=== PATIENT | female | born 1965 | race Caucasian/White ===

== ENCOUNTER 2020-07-16 11:04 | Outpatient (REF) | payer OTHER, SELFPAY ==
--- NOTE | ~2020-07-16 | MM_ITS ---
EXAMINATION: MM SCREENING DIGITAL BREAST TOMOSYNTHESIS, BILATERAL CLINICAL INFORMATION: Screening. Asymptomatic. The lifetime risk of breast cancer based on the Tyrer-Cuzick Model is 5%. COMPARISON: Mammography: 03/19/2018, 01/17/2017, 12/27/2016 TECHNIQUE: Digital breast tomosynthesis is performed in both the craniocaudal and mediolateral oblique views along with computer-aided detection (CAD). Synthesized 2D images are generated from the tomosynthesis. FINDINGS: There are scattered areas of fibroglandular density (ACR BI-RADS breast composition Category b). There are no significant masses, abnormal calcifications, or other abnormalities. There is a dermal lesion overlying the 12:00 periareolar right breast. The axilla are unremarkable. No significant changes. MM/MM tomosynthesis screening BI IMPRESSION: No mammographic evidence of malignancy. ASSESSMENT: BI-RADS 2: Benign RECOMMENDATION: Routine annual mammography screening. This patient's information was entered into a reminder system with a target due date for their next mammogram.
== END 2020-07-16 11:05 | disposition home or self-care (01) ==
LOC: HO.MAMMO 11:04
PROVIDERS: Visit Provider Internal Medicine
DX: Z12.31 Encounter for screening mammogram for malignant neoplasm of breast (principal)
CPT/HCPCS: 77063; 77067

== ENCOUNTER 2021-02-14 19:20 | Outpatient (REF) | payer OTHER, SELFPAY ==
[2021-02-14 20:19] LABS: Influenza A PCR NEGATIVE (Negative); Influenza B PCR NEGATIVE (Negative); Resp Syncy Virus RNA Qual PCR NEGATIVE (Negative); SARS COV2 PCR INHOUSE NEGATIVE (Negative)
== END 2021-02-14 19:21 | disposition home or self-care (01) ==
LOC: HO.LNP 19:20
PROVIDERS: Visit Provider Hospitalist
DX: R68.89 Other general symptoms and signs (principal); Z71.1 Person with feared health complaint in whom no diagnosis is made; Z20.822 Contact with and (suspected) exposure to COVID-19
CPT/HCPCS: 0241U

== ENCOUNTER 2021-06-21 08:46 | Outpatient (RCR) | payer OTHER, SELFPAY | END 2021-06-29 14:00 | disposition home or self-care (01) | LOC: HO.PTWFD 08:46 | PROVIDERS: PCP Internal Medicine; Visit Provider Internal Medicine | DX: M54.32 Sciatica, left side (principal) ==

== ENCOUNTER 2021-07-13 09:00 | Outpatient (RCR) | payer OTHER, SELFPAY ==
--- NOTE | 2021-06-29 13:58 | MHC.PT.EP ---
[facility] [place] Office [place] Office [place] Office [address] Alvarado Chicas [address] [phone] F: [phone] F: [phone] F: [phone] F: [phone] Physical Therapy Plan of Care Date of Evaluation: Date of Surgery: NA Diagnosis: L SIDED SCIATICA Assessment: Pt IS 55 YO F REFERRED TO PT FROM DR CASTRO WITH L SIDED SCIATICA. Pt REPORTS INSIDIOUS ONSET OF L GLUT/LE SXS WHILE VACATIONING IN [facility] ABOUT 2 MONTHS AGO. PRESENTS WITH TTP L GLUT, TIGHT HS AND PIRIFORMIS MMS, PELVIC ASYMMETRY, PREFERENCE TO FLEXION AT EVAL. Pt SHOULD BENEFIT FROM PT TO ADDRESS THESE ISSUES Frequency and Duration: The patient will be seen 2X/WK X 6 WKS Short Term Goals: 1. CENTRALIZE SXS 2. IMPROVED SLEEP 3. IMPROVED STAND TIME AND WALKING DISTANCE Pelota Maker Goals: 1. IMPROVED MOD OSWESTRY 2. DECREASED PAIN AT LEAST 50% WITH ADLS 3. I HEP WITH DC EX PLAN Treatment Plan: Modalities to reduce pain, spasms and effusion. Manual therapy to restore motion and function. Therapeutic exercise to improve strength and flexibility. Neuromuscular re-education for posture and balance. Therapeutic activities to return to functional activities of daily living. Electronically signed by: YEIMI VEGA PT Please sign and return to therapist. Thank you for your referral.
--- NOTE | 2021-08-05 15:12 | MHC.PT.DC ---
[facility] [place] Office [place] Office [place] Office [address] Alvarado Chicas [address] [phone] F: [phone] F: [phone] F: [phone] F: [phone] Physical Therapy Discharge Report Diagnosis: L SIDED SCIATICA Date of Surgery: NA Date of Evaluation: 06/29/21 Date of Discharge: 08/05/21 Treatments to Date: 4 Cancellations to Date: No Shows to Date: Discharge Status: Patient Elected to Stop Recommend MD Follow-up Discharge Summary: Pt SEEN FOR INIT EVAL AND 3 FU VISITS. HAD BEGUN HOME PROG FOR LE/CORE STRENGTHENING. Pt LAST SEEN ON 07/13/21. PER ASSESSMENT FROM THAT SESSION PAIN R LB/QL WITH MOVEMENT FROM PRONE>SL, RELIEF WITH ST WORK (ALTHOUGH SLIGHTLY SORE AFTER). SX HAVE CENTRALIZED OVERALL.' Pt THEN WAS CANCELLED X 2 SESSIONS BECAUSE THERAPIST OUT. Pt THEN DISCHARGED SELF. Electronically signed by: YEIMI VEGA PT Please sign and return to therapist. Thank you for your referral.
== END 2021-08-05 15:13 | disposition home or self-care (01) ==
LOC: HO.PTWFD 09:00
PROVIDERS: PCP Internal Medicine; Visit Provider Internal Medicine
DX: M54.32 Sciatica, left side (principal)
CPT/HCPCS: 97014; 97110; 97140; 97161

== ENCOUNTER 2022-01-24 07:12 | Outpatient (REF) | payer OTHER, SELFPAY ==
[2022-01-24 11:29] LABS: MANUAL DIFF FLAG NO
[2022-01-24 12:20] LABS: Basophils Percent Auto 0.7 % (0-2); Eosinophils Absolute Auto 0.3 X10*3/uL (0.0-0.4); Eosinophils Percent Auto 4.7 % (0-4); Hematocrit 37.6 % (37.0-47.0); Hemoglobin 12.1 g/dl (12.0-16.0); Imm Gran Abs Auto 0.01 X10*3/uL (0.00-0.03); Imm Gran Pct Auto 0.2 % (0.0-0.4); Lymphocytes Absolute Auto 2.4 X10*3/uL (1.2-4.9); Lymphocytes Percent Auto 43.3 % (20-40); Mean Corpuscular HGB Conc 32.2 g/dl (31.0-35.0); Mean Corpuscular Volume 96.4 fL (80.0-98.0); Mean Platelet Volume 10.6 fL (9.4-12.3); Monocytes Absolute Auto 0.3 X10*3/uL (0.1-1.2); Monocytes Percent Auto 6.1 % (2-11); Neutrophils Absolute Auto 2.5 x10*3/uL (2.0-8.3); Platelet Count 225 X10*3/uL (160-400); Red Cell Distribution Width 12.7 % (11.0-16.0); White Blood Count 5.6 X10*3/uL (4.8-10.8)
[2022-01-24 12:25] LABS: Anion Gap 11 (12-20); Blood Urea Nitrogen 20 mg/dL (9-16); Calcium 9.8 mg/dL (8.4-10.2); Carbon Dioxide 23 mmol/L (22-29); Chloride 112 mmol/L (96-108); Estimated Glomerular Filt Rate 43; Glucose Random 110 mg/dL (60-115); Potassium 4.4 mmol/L (3.3-5.1); Sodium 142 mmol/L (135-145)
== END 2022-01-24 07:13 | disposition home or self-care (01) ==
LOC: HO.WFDLDS 07:12
PROVIDERS: Absent Provider Internal Medicine Nephrology; Visit Provider Internal Medicine
DX: Z13.0 Encounter for screening for diseases of the blood and blood-forming organs and certain disorders involving the immune mechanism (principal); R51.9 Headache, unspecified
CPT/HCPCS: 36415; 80048; 85025

== ENCOUNTER → 2022-01-26 08:51 | Outpatient (BNVA) | payer OTHER, SELFPAY | PROVIDERS: PCP Internal Medicine; Visit Provider Nurse Practitioner Family | DX: G62.9 Polyneuropathy, unspecified (principal); M79.671 Pain in right foot; M79.672 Pain in left foot; G89.29 Other chronic pain; Q61.3 Polycystic kidney, unspecified; M47.816 Spondylosis without myelopathy or radiculopathy, lumbar region; Z94.0 Kidney transplant status; Z87.718 Personal history of other specified (corrected) congenital malformations of genitourinary system; Z92.25 Personal history of immunosuppression therapy | CPT/HCPCS: 99202 ==

== ENCOUNTER 2022-02-21 07:51 | Outpatient (REF) | payer OTHER, SELFPAY ==
--- NOTE | ~2022-02-21 | CT_ITS ---
EXAMINATION: CT HEAD WITHOUT CONTRAST CLINICAL INFORMATION: Headache. COMPARISON: MRI scan of the brain 02/26/2012. TECHNIQUE: Multidetector CT imaging of the head was obtained without the use of intravenous contrast. Coronal and sagittal reformatted images were generated at the technologist workstation. This CT examination was performed using dose optimization techniques as appropriate, variously including the following: *Automated exposure control *Adjustment of mA and/or kV according to patient size (this includes techniques or standardized protocols for targeted exams where dose is matched to indication/reason for exam; i.e. extremities or head) *Use of iterative reconstruction technique DLP: 706 mGy-cm. FINDINGS: There is no evidence of acute intracranial hemorrhage or territorial infarction. No abnormal mass-effect or midline shift is seen. James to white matter differentiation is well preserved. No extra-axial fluid collections are identified. The ventricles and sulci are normal in size. There are scattered areas of low-attenuation in the periventricular and subcortical white matter, and in the basal ganglia bilaterally. These may be consistent with chronic microvascular ischemic changes with basal ganglia lacunar infarcts. There are no acute osseous or soft tissue abnormalities. There is slight irregularity of the lateral aspect of the right temporomandibular condylar head. There is a chronic deformity of the lamina papyracea on the left. This is unchanged compared to prior imaging. There is hyperostosis frontalis interna. There is likely a hemangioma in the right frontal bone. The mastoid air cells and visualized paranasal sinuses are well aerated.. CT/CT head/brain wo IV con IMPRESSION: 1. There are no acute bleeds or infarcts. No masses are demonstrated. 2. There are scattered areas of low-attenuation in the parenchyma as described above. 3. There is irregularity of the left lamina papyracea, which may be consistent with sequelae of prior trauma.
== END 2022-02-21 07:52 | disposition home or self-care (01) ==
LOC: HO.CT 07:51
PROVIDERS: PCP Internal Medicine; Visit Provider Internal Medicine
DX: R51.9 Headache, unspecified (principal)
CPT/HCPCS: 70450

== ENCOUNTER → 2022-03-03 10:19 | Outpatient (BNVA) | payer OTHER, SELFPAY | PROVIDERS: PCP Internal Medicine; Visit Provider Nurse Practitioner Family | DX: G89.29 Other chronic pain (principal); M79.671 Pain in right foot; M79.672 Pain in left foot; M47.816 Spondylosis without myelopathy or radiculopathy, lumbar region; G62.9 Polyneuropathy, unspecified | CPT/HCPCS: 99212 ==

== ENCOUNTER 2022-05-10 11:47 | Outpatient (REF) | payer OTHER, SELFPAY ==
--- NOTE | 2022-05-10 08:30 | EMG_ITS ---
Please see scanned EMG / Nerve Conduction Report. MTDD
== END 2022-05-10 11:48 | disposition home or self-care (01) ==
LOC: HO.NEURO 11:47
PROVIDERS: Visit Provider Nurse Practitioner Family
DX: M79.671 Pain in right foot (principal); M79.672 Pain in left foot; G89.29 Other chronic pain; G62.9 Polyneuropathy, unspecified; Z92.25 Personal history of immunosuppression therapy
CPT/HCPCS: 95886; 95912

== ENCOUNTER → 2022-05-22 14:47 | Outpatient (BNVA) | payer OTHER, SELFPAY | PROVIDERS: PCP Internal Medicine; Visit Provider Nurse Practitioner Family ==

== ENCOUNTER 2022-05-23 09:30 | Outpatient (REF) | payer OTHER, SELFPAY ==
--- NOTE | ~2022-05-23 | XR_ITS ---
EXAMINATION: XR LUMBOSACRAL SPINE WITH OBLIQUES CLINICAL INFORMATION: Spondylosis without myelopathy COMPARISON: Previous x-ray May 2016 and MR of the lumbar spine January 2011 TECHNIQUE: AP, bilateral oblique, lateral and flexion and extension views of the lumbar spine. Lateral view of the lumbosacral junction. FINDINGS: There is 6 mm anterior subluxation of L5 with respect to S1. This is stable flexion-extension views. This is new from prior exams. Bone alignment is otherwise normal. There is an old L1 vertebral body compression fracture. There is degenerative disc disease at L5-S1. There is lower lumbar spine facet arthritis. No par defects seen. XR/XR lumbar spine 6V w bending IMPRESSION: Old L1 compression fracture. 6 mm anterior subluxation of L5 with respect to S1 stable on flexion-extension views. Degenerative disc disease at L5-S1 and severe facet arthritis.
== END 2022-05-23 09:31 | disposition home or self-care (01) ==
LOC: HO.XRAY 09:30
PROVIDERS: Absent Provider Internal Medicine; PCP Internal Medicine; Visit Provider Nurse Practitioner Family
DX: M47.816 Spondylosis without myelopathy or radiculopathy, lumbar region (principal); G62.9 Polyneuropathy, unspecified
CPT/HCPCS: 72114

== ENCOUNTER → 2022-07-04 14:01 | Outpatient (BNVA) | payer OTHER, SELFPAY | PROVIDERS: PCP Internal Medicine; Visit Provider Nurse Practitioner Family | DX: G89.4 Chronic pain syndrome (principal); G62.9 Polyneuropathy, unspecified | CPT/HCPCS: 17999; 99212; J7336 ==

== ENCOUNTER 2022-09-26 13:51 | Outpatient (AMB) | payer OTHER, SELFPAY ==
--- NOTE | 2022-09-26 15:58 | A.OFFVIS_ITS ---
Intake Vital Signs 09/26/22 16:02 Height 5 ft 7 in Weight 170 lb 6 oz BMI 26.7 BP 140/86 H Blood Pressure Location Lt brachial Position Sitting Respiration 16 Pulse 86 Pulse Source Pulse Oximeter Pulse Oximetry (%) 97 Oxygen Delivery Method Room Air Intake Visit Reasons: SCIATICA PAIN Allergies soy [SOY] Allergy (Intermediate, Verified 07/04/22 14:16) FLUSHING,ITCHY lisinopril Allergy (Unknown, Verified 07/04/22 14:16) Cough buspirone Adverse Reaction (Intermediate, Verified 07/04/22 14:16) psychosis HPI HPI Comments History of Present Illness Details Veronica is a very pleasant 57 year old female who presents to the office today for follow up left lower back pain. Patient reports she has been suffering with this pain for many years, completed PT last year with improvement of the pain but it has since returned. She has been doing home exercise program as instructed on discharge from PT with no relief. She is s/p kidney transplant, unable to take PO NSAIDs but has tried topical voltaren cream with some help. She used opiates and muscle relaxers in the past with some relief. Using heat and lidocaine patches, both help some but not all the time. Tried gabapentin recently but could not tolerate the side effects. Pain today 08/21 with radiation down the left leg into the left foot. She denies red flag symptoms including loss of bowel, bladder or saddle anesthesia. PRIOR: Patient presents today via telehealth encounter to discuss EMG and nerve conduction studies. Patient continues to endorse bilateral neuropathy pain in her legs and feet and axial low back pain. Neurodiagnostic studies revealed moderately severe axonal sensory greater than motor peripheral neuropathy in the lower extremities bilaterally with relative sparing of the tibial and sural nerves. EMG of the right L4-S1 innervated muscles consistent with distal chronic neuropathic changes of neuropathy. Patient is interested to proceed with SCS trial. I will submit referral for behavioral assessment to [facility] providers. Patient denies any recent cough, cold, infection, fever or other significant changes in medical history since last office visit. PRIOR: Patient presents today in the office for medication review. Patient has tried gabapentin and had to discontinue due to memory issues and fuzzy head sensations. Topical compound cream from [employer] was not approved by her insurance. Patient is scheduled to undergo EMG and NVC studies in April. If neurodiagnostic studies show axonal neuropathy, we will discuss longer term pain relief with Nevro SCS trial and proceed with behavioral assessment as initial step for SCS trial. Patient reports she recently underwent head CT scan for headaches and it showed no acute findings. Patient denies any changes in her medical or surgical history and no recent hospitalizations or Urgent clinic visits since last visit. 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 She attributes chronic neuropathy to renal failure. Patient denies diabetes with most recent A1C 5.3. Patient reports her back pain is currently axial that spreads across her back without radiation to her lower extremities. Her main concern today is bilateral foot neuropathic pain. She has been under the care of a neurologist in the past and had EMG testing done many years ago. Patient has no reports of EMG testing today. She reports her gait and balance has been affected lately with occasional falling. Her pain is described as constant throbbing, pounding, shooting, stabbing, sharp, cutting, pinching, searing, burning, numbness, crawling, tingling, stinging, sore, hurting, aching, heavy, tiring, exhausting, sickening, piercing, tight, squeezing, and cold. Patient reports she completed physical therapy 4 months ago with improvement in her sciatica symptoms. Denies back surgery or injections. She underwent a left bunionectomy by Dr. Landa at [facility] in 2018. Patient reports she has tried gabapentin and Lyrica in the past that has been not effective. She has not tried amitriptyline or duloxetine in the past and currently these medications will significantly interfere with her taking bupropion. Patient has been on pain medical management by Dr. Andre for the past 20 years and has been tapered off oxycodone 4 months ago. She emphasized that oxycodone has been the most effective for her chronic foot neuropathy. I have informed patient that our office does not offer opioid prescribing at this time. Patient denies any fever, chills, weight changes, abdominal or groin pain, dizziness, shortness of breaths, weakness, infection, swelling, rash, bowel or bladder incontinence or saddle anesthesia. [facility] Medical History Eczema Neuropathy Peripheral neuropathy Polycystic kidney disease Surgical History History of D&C History of kidney transplant History of nephrectomy History of surgery on arm History of tubal ligation Kidney transplant recipient Family History Father Polycystic kidney disease Mother No problems noted. Paternal Grandmother Polycystic kidney disease Social History Housing: House Alcohol intake: never Patient Tobacco Use Status: Never used Tobacco e-Cigarette/Vaping Use: Never Used Second Hand Smoke Exposure: No service: No Current occupational status: disabled Current occupational exposures/hazards: No Cognitive needs: No Hearing needs: No Vision needs: Yes Review of Systems Const All systems reviewed & are unremarkable except as noted in HPI and below Physical Exam General: awake, alert, oriented. Answers questions appropriately. Fully engaged in examination. Skin: warm, dry, intact HEENT: Normocephalic. Hearing intact. Cardiac: External chest normal in appearance. Respiratory: No cough, audible wheezing or stridor. Abdomen: without gross distension. MS: No obvious swelling or deformities. Able to stand on bilateral tiptoes and bilateral heels.? Able to transition from sit to stand unassisted. Ambulates with bilaterally normal heel strike and toe off Tenderness to palpation left paraspinal muscles and left PSIS Nargis postive on left SLR with dorsiflexion positive on left gaenslen negative bilaterally thigh thrust negative bilaterally Neurological: Oriented to person, place, time and situation. Thought process intact. No gait abnormalities appreciated. Psychiatric: Appropriate mood and affect. Good judgment and insight. Results Reviewed Results Reviewed: XR LUMBOSACRAL SPINE WITH OBLIQUES FINDINGS: There is 6 mm anterior subluxation of L5 with respect to S1. This is stable flexion-extension views. This is new from prior exams. Bone alignment is otherwise normal. There is an old L1 vertebral body compression fracture. There is degenerative disc disease at L5-S1. There is lower lumbar spine facet arthritis. No par defects seen. IMPRESSION: Old L1 compression fracture. 6 mm anterior subluxation of L5 with respect to S1 stable on flexion-extension views. Degenerative disc disease at L5-S1 and severe facet arthritis. 05/10/2022 Assessment & Plan Assessment & Plan (1) Peripheral neuropathy: Code(s): G62.9 - Polyneuropathy, unspecified (2) Chronic pain of both feet: Code(s): M79.671 - Pain in right foot; M79.672 - Pain in left foot; G89.29 - Other ch ronic pain (3) Lumbar spondylosis: Code(s): M47.816 - Spondylosis without myelopathy or radiculopathy, lumbar region (4) Lumbar radiculopathy: Code(s): M54.16 - Radiculopathy, lumbar region Plan 1. Refill of lidocaine patches sent to pharmacy. patient instructed on use. Topical compound cream denied by insurance recently, she does not want to try getting this approved. Given patient's history of kidney transplant muscle relaxers contraindicated. 2. Zynex Tens machine ordered, patient instructed on use. Handout provided with instructions. 3. MRI non-contrast Lumbar spine ordered today to evaluate for nerve root compression. Discussed options for treatment including diagnostic interventional testing, epidural steroid injections, peripheral nerve stimulation with Sprint, RFA and more permanent neuromodulation. SCS denied by insurance for peripheral neuropathy, she has up to date psych clearance if necessary for future procedures. Patient will follow up here after MRI to review, plan for fluoroscopy guided TFESI with local anesthetic vs neurosurgical referral. All questions and concerns have been answered and patient agrees with the plan. Follow up as planned 10/03/2022 for next [employer] application. Orders: Orders MR lumbar spine wo con Today M47.816 - Spondylosis without myelopathy or radiculopathy, lumbar region, M54.16 - Radiculopathy, lumbar region Medications: Refilled lidocaine 5% leave on most painful area for up to 12 hrs 1 patch topical DAILY PRN 30 ea 3RF pain M54.9 - Dorsalgia, unspecified Coding Level of Care Code Est Pt Level 4 (92545) Diagnoses Peripheral neuropathy G62.9 Chronic pain of both feet M79.671; M79.672; G89.29 Lumbar spondylosis M47.816 Lumbar radiculopathy M54.16
[2022-09-26 16:02] VITALS: BP 140/86; PULSE 86; RESP 16; O2SAT 97; BMI 26.7
== END 2022-09-26 14:16 | disposition home or self-care (01) ==
PROVIDERS: PCP Internal Medicine; Visit Provider Registered Nurse Emergency
DX: G62.9 Polyneuropathy, unspecified (principal); M79.671 Pain in right foot; M79.672 Pain in left foot; G89.29 Other chronic pain; M47.816 Spondylosis without myelopathy or radiculopathy, lumbar region; M54.16 Radiculopathy, lumbar region
CPT/HCPCS: 99214

== ENCOUNTER → 2022-09-26 13:51 | Outpatient (BNVA) | payer OTHER, SELFPAY | PROVIDERS: PCP Internal Medicine; Visit Provider Registered Nurse Emergency | DX: G62.9 Polyneuropathy, unspecified (principal); G89.29 Other chronic pain; M79.671 Pain in right foot; M79.672 Pain in left foot; M47.26 Other spondylosis with radiculopathy, lumbar region | CPT/HCPCS: 99212 ==

== ENCOUNTER 2022-09-27 14:09 | Outpatient (AMB) | payer OTHER, SELFPAY ==
--- NOTE | 2022-09-27 14:12 | MHC.PC.OV ---
Vital Signs 09/27/22 14:13 Height 5 ft 7 in Weight 171 lb 4 oz BMI 26.8 BP 130/72 Blood Pressure Location Lt brachial Position Sitting Pulse 81 Pulse Source Pulse Oximeter Pulse Oximetry (%) 97 Oxygen Delivery Method Room Air Intake Visit Reasons: feeling tried and sad ? antidepressant med Intake Note: Patient is here today for depression and anti depressant are not helping. Currently does not have a psy Dr. Solar Photovoltaic Installer Required: No Fish Hatchery Inspector: Not Required per policy Accompanied by: Self / Same As Patient Allergies soy [SOY] Allergy (Intermediate, Verified 09/27/22 14:13) FLUSHING,ITCHY lisinopril Allergy (Unknown, Verified 09/27/22 14:13) Cough buspirone Adverse Reaction (Intermediate, Verified 09/27/22 14:13) psychosis Medication List - Last Reconciled 09/28/22 by Ernst Andre MD belatacept 375 mg IV Q4W betamethasone valerate 0.1% 1 appl topical DAILY PRN 14 days bupropion HCl 300 mg PO DAILY bupropion HCl 150 mg PO DAILY clonazepam 1 mg PO BID diclofenac sodium 1% (Voltaren Arthritis Pain) 4 grams topical QID PRN fluticasone propionate 50 mcg/actuation 1 spray intranasal DAILY lidocaine 5% 1 patch topical DAILY PRN lidocaine-prilocaine 2.5-2.5 % 1 appl topical DAILY loratadine (Allergy Relief (loratadine)) 10 mg PO DAILY PRN multivitamin 1 tab PO DAILY mycophenolate sodium 540 mg PO BID omeprazole 20 mg PO DAILY paroxetine HCl (Paxil) 20 mg PO DAILY rosuvastatin 5 mg PO DAILY Tobacco use date assessed: 09/27/22 HPI feeling tried and sad ? antidepressant med HPI Details depression with tearful episodes PFSH Medical History Eczema Neuropathy Peripheral neuropathy Polycystic kidney disease Surgical History History of D&C History of kidney transplant History of nephrectomy History of surgery on arm History of tubal ligation Kidney transplant recipient Family History Father Polycystic kidney disease Mother No problems noted. Paternal Grandmother Polycystic kidney disease Social History Housing: House Alcohol intake: never Patient Tobacco Use Status: Never used Tobacco e-Cigarette/Vaping Use: Never Used Second Hand Smoke Exposure: No service: No Current occupational status: disabled Current occupational exposures/hazards: No Cognitive needs: No Hearing needs: No Vision needs: Yes Questionnaire PHQ-9 Over the last 2 weeks, how often have you been bothered by any of the following problems? 1. Little interest or pleasure in doing things: several days 2. Feeling down, depressed, or hopeless: nearly every day 3. Trouble falling or staying asleep, or sleeping too much: nearly every day 4. Feeling tired or having little energy: nearly every day 5. Poor appetite or overeating: nearly every day 6. Feeling bad about yourself - or that you are a failure or have let yourself or your family down: not at all 7. Trouble concentrating on things, such as reading the newspaper or watching television: not at all 8. Moving or speaking so slowly that other people could have noticed. Or the opposite - being so fidgety or restless that you have been moving around a lot more than usual: not at all 9. Thoughts that you would be better off or of hurting yourself in some way: not at all Total score: 13 Depression Screening Interpretation: Negative Source: Developed by Drs. Tariq Rivera, Asuncion Leach, Adam Morse and colleagues, with an educational joaquín from [employer]. Thrive Questionnaire Date Thrive assessed: 06/14/22 Currently or been in a relationship where the following occur: no concerns reported ANDREIA-7 AMB Questionnaire ANDREIA-7 Date ANDREIA - 7 assessed: 09/27/22 Feeling nervous, anxious, or on edge: 3 = Nearly every day Not being able to stop or control worryin = Nearly every day Worrying too much about different things: 3 = Nearly every day Trouble relaxin = Several days Being so restless that it is hard to sit still: 0 = Not at all Becoming easily annoyed or irritable: 0 = Not at all Feeling afraid as if something awful might happen: 1 = Several days Total ANDREIA-7 score (0-4 normal; 5-9 mild; 10-14 moderate; 15-21 severe): 11 Source: Developed by Drs. Tariq Rivera, Asuncion Leach, Adam Morse and colleagues, with an educational joaquín from [employer]. Review of Systems Const Denies chills, Denies headache(s) and Denies weight loss ENT Denies headache(s) Card Denies chest pain, Denies syncope, Denies irregular heart rhythm and Denies dyspnea Resp Denies chest congestion, Denies cough and Denies dyspnea GI Denies abdominal pain, Denies change in stool character, Denies nausea and Denies vomiting Musc Denies deformity and Denies joint swelling Neuro Denies syncope and Denies headache(s) Physical exam (Primary Care) Vital Signs: Last Vital Signs Pulse 81 09/27/22 14:13 BP 130/72 09/27/22 14:13 Pulse Ox 97 09/27/22 14:13 Oxygen Delivery Method Room Air 09/27/22 14:13 BMI result Body Mass Index 26.8 Tobacco/Smoking Status: Tobacco use Status Tobacco use date assessed 09/27/22 09/27/22 14:21 Patient Tobacco Use Status Never used Tobacco 09/27/22 14:21 e-Cigarette/Vaping Use Never Used 09/27/22 14:21 PHQ-9: PHQ-9 Score PHQ-9: Total score 13 09/27/22 14:21 Depression Screening Interpretation: Negative Thrive Assessment: Date of Thrive Assessment Date Thrive assessed 06/14/22 09/27/22 14:21 Currently or been in a relationship where the following occur: no concerns reported Const General: cooperative, healthy appearing and no acute distress Orientation/consciousness: oriented to person, oriented to place and oriented to time [facility] Head: Yes normal to inspection, Yes normocephalic and Yes atraumatic Mouth: Normal oral and palatal mucosa present and tongue normal Throat: Yes posterior oropharynx normal and Yes uvula midline Eyes General: appearance normal, both eyes and all related structures Neck Neck: Yes normal visual inspection, Yes full ROM and Yes no lymphadenopathy Thyroid: Thyroid normal Carotids: normal carotid upstroke Chest Chest palpation & inspection: normal inspection of the chest Resp Effort & Inspection: normal respiratory effort and able to speak in complete sentences Auscultation: clear to auscultation bilaterally Cardio Jugular venous distension: no JVD Palpation: normal PMI Rate: regular rate Rhythm: regular rhythm Heart sounds: S1 normal heart sound present and S2 normal heart sound present GI Inspection: Yes normal to inspection Palpation (GI): Soft to palpation and No hepatosplenomegaly present Auscultation: normal bowel sounds General: Yes no CVA tenderness Back/Spine/Pelvis Back: no CVA tenderness Skin General skin exam: no rashes or lesions noted Neuro General: oriented to person, oriented to place and oriented to time Extrem General: Yes normal to inspection and Yes full ROM Assessment and Plan Assessment & Plan (1) Depression: Code(s): F32.9 - Major depressive disorder, single episode, unspecified Plan: add rx Medications: New paroxetine HCl (Paxil) 20 mg PO DAILY 30 tabs 3RF Coding Level of Care Code Est Pt Level 3 (94738) Diagnoses Depression F32.9
[2022-09-27 14:13] VITALS: BP 130/72; PULSE 81; O2SAT 97; BMI 26.8
== END 2022-09-27 15:41 | disposition home or self-care (01) ==
PROVIDERS: PCP Internal Medicine; Visit Provider Internal Medicine
DX: F33.9 Major depressive disorder, recurrent, unspecified (principal)
CPT/HCPCS: 99213

== ENCOUNTER 2022-10-03 08:46 | Outpatient (AMB) | payer OTHER, SELFPAY ==
--- NOTE | 2022-10-03 08:51 | A.OFFVIS_ITS ---
Intake Vital Signs 10/03/22 08:56 10/03/22 09:31 10/03/22 09:50 Height 5 ft 7 in Weight 168 lb 4 oz BMI 26.3 BP 145/75 H 141/85 H 146/79 H Blood Pressure Location Lt brachial Lt brachial Lt brachial Position Sitting Sitting Sitting Pulse 81 79 78 Pulse Source Pulse Oximeter Pulse Oximeter Pulse Oximeter Pulse Oximetry (%) 97 98 96 Oxygen Delivery Method Room Air Room Air Room Air Comment 15 mins after qutenza application Intake Visit Reasons: Qutenza - PN Intake Note: Veronica comes in today for qutenza application to bilateral feet. Lot# [id number] Exp , [facility]# [id number]. Pain today 05/22. 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 She continues to endorse low back pain with left sided sciatica pain and is awaiting lumbar spine MRI to be scheduled. Patient reports she just received TENS unit from [employer] and will monitor its use and effectiveness. She also continues to use lidocaine patches, heat therapy and diclofenac gel with temporary mild relief. Denies any recent cough, cold, infection, fever or other significant changes in medical history since last office visit. PRIOR: Veronica is a very pleasant 57 year old female who presents to the office today for follow up left lower back pain. Patient reports she has been suffering with this pain for many years, completed PT last year with improvement of the pain but it has since returned. She has been doing home exercise program as instructed on discharge from PT with no relief. She is s/p kidney transplant, unable to take PO NSAIDs but has tried topical voltaren cream with some help. She used opiates and muscle relaxers in the past with some relief. Using heat and lidocaine patches, both help some but not all the time. Tried gabapentin recently but could not tolerate the side effects. Pain today 08/21 with radiation down the left leg into the left foot. She denies red flag symptoms including loss of bowel, bladder or saddle anesthesia. PRIOR: Patient presents today via telehealth encounter to discuss EMG and nerve conduction studies. Patient continues to endorse bilateral neuropathy pain in her legs and feet and axial low back pain. Neurodiagnostic studies revealed moderately severe axonal sensory greater than motor peripheral neuropathy in the lower extremities bilaterally with relative sparing of the tibial and sural nerves. EMG of the right L4-S1 innervated muscles consistent with distal chronic neuropathic changes of neuropathy. Patient is interested to proceed with SCS trial. I will submit referral for behavioral assessment to [facility] providers. Patient denies any recent cough, cold, infection, fever or other significant changes in medical history since last office visit. PRIOR: Patient presents today in the office for medication review. Patient has tried gabapentin and had to discontinue due to memory issues and fuzzy head sensations. Topical compound cream from [employer] was not approved by her insurance. Patient is scheduled to undergo EMG and NVC studies in April. If neurodiagnostic studies show axonal neuropathy, we will discuss longer term pain relief with [facility] SCS trial and proceed with behavioral assessment as initial step for SCS trial. Patient reports she recently underwent head CT scan for headaches and it showed no acute findings. Patient denies any changes in her medical or surgical history and no recent hospitalizations or Urgent clinic visits since last visit. 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 She attributes chronic neuropathy to renal failure. Patient denies diabetes with most recent A1C 5.3. Patient reports her back pain is currently axial that spreads across her back without radiation to her lower extremities. Her main concern today is bilateral foot neuropathic pain. She has been under the care of a neurologist in the past and had EMG testing done many years ago. Patient has no reports of EMG testing today. She reports her gait and balance has been affected lately with occasional falling. Her pain is described as constant throbbing, pounding, shooting, stabbing, sharp, cutting, pinching, searing, burning, numbness, crawling, tingling, stinging, sore, hurting, aching, heavy, tiring, exhausting, sickening, piercing, tight, squeezing, and cold. Patient reports she completed physical therapy 4 months ago with improvement in her sciatica symptoms. Denies back surgery or injections. She underwent a left bunionectomy by Dr. Landa at [facility] in 2018. Patient reports she has tried gabapentin and Lyrica in the past that has been not effective. She has not tried amitriptyline or duloxetine in the past and currently these medications will significantly interfere with her taking bupropion. Patient has been on pain medical management by Dr. Andre for the past 20 years and has been tapered off oxycodone 4 months ago. She emphasized that oxycodone has been the most effective for her chronic foot neuropathy. I have informed patient that our office does not offer opioid prescribing at this time. Patient denies any fever, chills, weight changes, abdominal or groin pain, dizziness, shortness of breaths, weakness, infection, swelling, rash, bowel or bladder incontinence or saddle anesthesia. [facility] Medical History Eczema Neuropathy Peripheral neuropathy Polycystic kidney disease Surgical History History of D&C History of kidney transplant History of nephrectomy History of surgery on arm History of tubal ligation Kidney transplant recipient Family History Father Polycystic kidney disease Mother No problems noted. Paternal Grandmother Polycystic kidney disease Social History Housing: House Alcohol intake: never Patient Tobacco Use Status: Never used Tobacco e-Cigarette/Vaping Use: Never Used Second Hand Smoke Exposure: No service: No Current occupational status: disabled Current occupational exposures/hazards: No Cognitive needs: No Hearing needs: No Vision needs: Yes Review of Systems Const All systems reviewed & are unremarkable except as noted in HPI and below Physical Exam Vital Signs: Last Vital Signs Pulse 79 10/03/22 09:31 BP 141/85 H 10/03/22 09:31 Pulse Ox 98 10/03/22 09:31 Oxygen Delivery Method Room Air 10/03/22 09:31 BMI result Body Mass Index 26.3 General: Appears afebrile. Alert and oriented. Mood and affect appropriate. Follows and participates in conversation appropriately. Respiratory effort is unlabored. No cough. Able to transition from sit to stand unassisted. Ambulates with bilaterally normal heel strike and toe off but reports increased pain on left with heel or toe standing. Back/Spine/Pelvis Thoracic/Lumbar Spine: Lasegue's sign positive on the left and localized, pain with thoraco-lumbar ROM, paraspinal muscle tenderness on the left greater than right, No thoracic spinal tenderness and lumbar spinal tenderness (L4-S1) Extrem Other: No soft tissue swelling, redness or warmth. There is decreased sensation over the soles of the feet and toes, no breaks in the skin. General: Yes capillary refill normal, Yes no clubbing, cyanosis or edema and Yes no calf tenderness Office Procedures Topical Capsaicin Date 1:: 07/04/22 Date 2:: 10/03/22 Main area of pain on the body: Bilateral feet: toes, plantar and dorsal surfaces Laterality: Bilateral Location of left foot pain: Plantar, Dorsal and Lateral Location of right foot pain: Plantar, Dorsal and Lateral Quality of pain: Aching, Nagging, Burning, Throbbing and Numb-like Details:: Two patches, 560 cm2 were utilized per each foot. EMLA Cream (lidocaine 2.5% and prilocaine 2.5%) was applied at home by patient prior to application of the patches. The patient tolerated the procedure well. Her vitals signs remained stable throughout the procedure. Patient was able to complete the stipulated 30 minutes of the therapeutic application without any discomfort. Office Meds capsaicin-skin cleanser 8 % Performing Provider: NATE Junior Administered by: NATE Junior on 10/03/22 09:10 Dose Route Admin Location Lot Number Expiration Date NDC Pickle Pumper 4 ea topical [facility] [id number] 02/12/25 [id number] [employer] Assessment & Plan Assessment & Plan (1) Peripheral neuropathy: Code(s): G62.9 - Polyneuropathy, unspecified (2) Chronic pain syndrome: Code(s): G89.4 - Chronic pain syndrome (3) Lumbar radiculopathy: Code(s): M54.16 - Radiculopathy, lumbar region (4) Lumbar spondylosis: Code(s): M47.816 - Spondylosis without myelopathy or radiculopathy, lumbar region (5) Chronic pain of both feet: Code(s): M79.671 - Pain in right foot; M79.672 - Pain in left foot; G89.29 - Other chronic pain Plan Patient is status post 2nd round of application of topical capsaicin 8% for neuropathy in bilateral feet. Patient tolerated the procedure without significant discomfort with application of EMLA cream prior to the procedure. She was discharged home in stable condition with discharge instructions. All questions and concerns were answered and the patient agreed with the plan. Patient is aware to call if her low back pain with left sided radicular pain worsens or if she develops any red flag symptoms to seek emergency care. Patient denies any cauda equina syndrome symptoms at this time. Follow up for MRI results and sooner as needed. Greater than 45 minutes were spent in therapeutic application and in coordination of the care. Orders: Orders AMB Capsaicin Patch - Practice Supplied Today G62.9 - Polyneuropathy, unspecified Coding Level of Care Code Est Pt Level 5 (11702) Diagnoses Peripheral neuropathy G62.9 Chronic pain syndrome G89.4 Lumbar radiculopathy M54.16 Lumbar spondylosis M47.816 Chronic pain of both feet M79.671; M79.672; G89.29
[2022-10-03 08:56] VITALS: BP 145/75; PULSE 81; O2SAT 97; BMI 26.3
[2022-10-03 09:31] VITALS: BP 141/85; PULSE 79; O2SAT 98
[2022-10-03 09:50] VITALS: BP 146/79; PULSE 78; O2SAT 96
== END 2022-10-03 10:04 | disposition home or self-care (01) ==
PROVIDERS: PCP Internal Medicine; Visit Provider Nurse Practitioner Family
DX: G62.9 Polyneuropathy, unspecified (principal); G89.4 Chronic pain syndrome; M54.16 Radiculopathy, lumbar region; M47.816 Spondylosis without myelopathy or radiculopathy, lumbar region; M79.671 Pain in right foot; M79.672 Pain in left foot; G89.29 Other chronic pain
CPT/HCPCS: 99215

== ENCOUNTER → 2022-10-03 08:46 | Outpatient (BNVA) | payer OTHER, SELFPAY | PROVIDERS: PCP Internal Medicine; Visit Provider Nurse Practitioner Family | DX: G62.9 Polyneuropathy, unspecified (principal); M54.16 Radiculopathy, lumbar region; M47.816 Spondylosis without myelopathy or radiculopathy, lumbar region; M79.671 Pain in right foot; M79.672 Pain in left foot; G89.29 Other chronic pain | CPT/HCPCS: 99212; J7336 ==

== ENCOUNTER 2022-11-01 08:36 | Outpatient (REF) | payer OTHER, SELFPAY ==
--- NOTE | ~2022-11-01 | MR_ITS ---
EXAMINATION: MR LUMBAR SPINE WITHOUT CONTRAST CLINICAL INFORMATION: Radiculopathy. Low back pain. COMPARISON: MRI dated 01/20/2011 and x-ray from 05/23/2022. TECHNIQUE: Multiplanar, multisequence imaging was obtained. FINDINGS: VERTEBRAL BODIES AND PARASPINAL STRUCTURES: There is a chronic mild superior endplate compression fracture deformity again visible at the L1 level. Mild scattered fatty marrow signal changes are stable. There is very mild anterior/superior endplate edema at the T12 level with osteophytic spurring. Multilevel endplate Schmorl's nodes visible. Moderate loss of disc height evident at the L5-S1 level where there is a grade 1 anterolisthesis and a 7 mm slippage. There is [id number]-[id number] endplate edema at L5-S1 and in the posterior elements on the right side, presumably stress-related. The paraspinal soft tissues are otherwise unremarkable. Right-sided pelvic kidney noted. The imaged bony pelvis is unremarkable. There is an incompletely visualized 3.6 cm lesion which may represent a cyst versus hemangioma at the hepatic dome on the nondiagnostic localizer acquisition. CONUS MEDULLARIS AND CAUDA EQUINE: The distal cord, conus tip, and cauda equina nerve roots are normal. SPINAL LEVELS: L1-L2: Tiny central disc protrusion. No central canal stenosis or foraminal narrowing. L2-L3: Mild disc degeneration and disc bulge without central canal stenosis or foraminal narrowing. Previous small posterior annular fissure is no longer seen. Very mild retrosubluxation. L3-L4: Mild superior endplate concavity lateralized to the right side with fatty marrow endplate changes at L3, new from the prior MR study. Minimal disc bulge and posterior annular fissure. No central canal stenosis or foraminal narrowing. L4-L5: Mild posterior subluxation and new broad-based disc bulge mildly impressing upon the ventral thecal sac with mild facet arthropathy. No central canal stenosis. Mild foraminal narrowing. L5-S1: Anterolisthesis and moderate loss of disc height with progressed severe facet arthropathy compared to prior imaging. Mild marrow edema in the posterior elements on the right side. Maxl-kb-[id number] endplate edema as well. Aijh-fb-ojwddhht foraminal narrowing, worse on the left side, with facet spurring and bulging disc compressing the exiting left L5 nerve root. Moderate central canal stenosis with facet spurring mildly impressing upon the S1 nerve roots in the subarticular zones bilaterally. MR/MR lumbar spine wo con IMPRESSION: 1. Progressed spondylosis at the L5-S1 level with a grade 1 anterolisthesis and moderate degenerative disc disease. Marrow edema in the endplates and posterior elements on the right side, presumably stress-related in etiology. Moderate central canal stenosis with facet spurring mildly impressing upon the S1 nerve roots in the subarticular zones. Moderate left foraminal narrowing with facet spurring and bulging disc compressing the exiting left L5 nerve root. 2. Mild posterior subluxation and broad-based disc bulge at the L4-L5 level with mild foraminal narrowing. 3. Incompletely visualized 3.6 cm lesion at the hepatic dome which may represent a cyst versus hemangioma. This could be further evaluated with follow-up sonography.
== END 2022-11-01 08:37 | disposition home or self-care (01) ==
LOC: HO.MRI 08:36
PROVIDERS: Visit Provider Registered Nurse Emergency
DX: M54.16 Radiculopathy, lumbar region (principal); M47.816 Spondylosis without myelopathy or radiculopathy, lumbar region
CPT/HCPCS: 72148

== ENCOUNTER 2022-11-16 09:51 | Outpatient (AMB) | payer OTHER, SELFPAY ==
--- NOTE | 2022-11-16 09:53 | MHC.OFFVIS ---
Intake Vital Signs 11/16/22 09:57 Height 5 ft 7 in Weight 168 lb BMI 26.3 BP 140/72 H Blood Pressure Location Lt brachial Position Sitting Pulse 91 Pulse Source Pulse Oximeter Pulse Oximetry (%) 96 Oxygen Delivery Method Room Air Intake Visit Reasons: MRI results/ LVM. 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 Denies any recent cough, cold, infection, fever or other significant changes in medical history since last office visit. Patient denies any bladder or bowel incontinence or saddle anesthesia. PRIOR: Patient presents for 2nd application of capsaicin 8% topical patch for peripheral neuropathy in bilateral feet. She continues to endorse low back pain with left sided sciatica pain and is awaiting lumbar spine MRI to be scheduled. Patient reports she just received TENS unit from [employer] and will monitor its use and effectiveness. She also continues to use lidocaine patches, heat therapy and diclofenac gel with temporary mild relief. Denies any recent cough, cold, infection, fever or other significant changes in medical history since last office visit. PRIOR: Veronica is a very pleasant 57 year old female who presents to the office today for follow up left lower back pain. Patient reports she has been suffering with this pain for many years, completed PT last year with improvement of the pain but it has since returned. She has been doing home exercise program as instructed on discharge from PT with no relief. She is s/p kidney transplant, unable to take PO NSAIDs but has tried topical voltaren cream with some help. She used opiates and muscle relaxers in the past with some relief. Using heat and lidocaine patches, both help some but not all the time. Tried gabapentin recently but could not tolerate the side effects. Pain today 08/21 with radiation down the left leg into the left foot. She denies red flag symptoms including loss of bowel, bladder or saddle anesthesia. PRIOR: Patient presents today via telehealth encounter to discuss EMG and nerve conduction studies. Patient continues to endorse bilateral neuropathy pain in her legs and feet and axial low back pain. Neurodiagnostic studies revealed moderately severe axonal sensory greater than motor peripheral neuropathy in the lower extremities bilaterally with relative sparing of the tibial and sural nerves. EMG of the right L4-S1 innervated muscles consistent with distal chronic neuropathic changes of neuropathy. Patient is interested to proceed with SCS trial. I will submit referral for behavioral assessment to [facility] providers. Patient denies any recent cough, cold, infection, fever or other significant changes in medical history since last office visit. PRIOR: Patient presents today in the office for medication review. Patient has tried gabapentin and had to discontinue due to memory issues and fuzzy head sensations. Topical compound cream from [employer] was not approved by her insurance. Patient is scheduled to undergo EMG and NVC studies in April. If neurodiagnostic studies show axonal neuropathy, we will discuss longer term pain relief with [facility] SCS trial and proceed with behavioral assessment as initial step for SCS trial. Patient reports she recently underwent head CT scan for headaches and it showed no acute findings. Patient denies any changes in her medical or surgical history and no recent hospitalizations or Urgent clinic visits since last visit. 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 She attributes chronic neuropathy to renal failure. Patient denies diabetes with most recent A1C 5.3. Patient reports her back pain is currently axial that spreads across her back without radiation to her lower extremities. Her main concern today is bilateral foot neuropathic pain. She has been under the care of a neurologist in the past and had EMG testing done many years ago. Patient has no reports of EMG testing today. She reports her gait and balance has been affected lately with occasional falling. Her pain is described as constant throbbing, pounding, shooting, stabbing, sharp, cutting, pinching, searing, burning, numbness, crawling, tingling, stinging, sore, hurting, aching, heavy, tiring, exhausting, sickening, piercing, tight, squeezing, and cold. Patient reports she completed physical therapy 4 months ago with improvement in her sciatica symptoms. Denies back surgery or injections. She underwent a left bunionectomy by Dr. Landa at [facility] in 2018. Patient reports she has tried gabapentin and Lyrica in the past that has been not effective. She has not tried amitriptyline or duloxetine in the past and currently these medications will significantly interfere with her taking bupropion. Patient has been on pain medical management by Dr. Andre for the past 20 years and has been tapered off oxycodone 4 months ago. She emphasized that oxycodone has been the most effective for her chronic foot neuropathy. I have informed patient that our office does not offer opioid prescribing at this time. Patient denies any fever, chills, weight changes, abdominal or groin pain, dizziness, shortness of breaths, weakness, infection, swelling, rash, bowel or bladder incontinence or saddle anesthesia. [facility] Medical History Polycystic kidney disease Peripheral neuropathy Eczema Neuropathy Surgical History Kidney transplant recipient History of surgery on arm History of D&C History of nephrectomy History of tubal ligation History of kidney transplant Family History Father Polycystic kidney disease Mother No problems noted. Paternal Grandmother Polycystic kidney disease Social History Housing: House Alcohol intake: never Patient Tobacco Use Status: Never used Tobacco e-Cigarette/Vaping Use: Never Used Second Hand Smoke Exposure: No service: No Current occupational status: disabled Current occupational exposures/hazards: No Cognitive needs: No Hearing needs: No Vision needs: Yes Review of Systems Const All systems reviewed & are unremarkable except as noted in HPI and below Physical Exam Vital Signs: Last Vital Signs Pulse 91 11/16/22 09:57 BP 140/72 H 11/16/22 09:57 Pulse Ox 96 11/16/22 09:57 Oxygen Delivery Method Room Air 11/16/22 09:57 BMI result Body Mass Index 26.3 General: Appears afebrile. Alert and oriented. Mood and affect appropriate. Follows and participates in conversation appropriately. Respiratory effort is unlabored. No cough. Able to transition from sit to stand unassisted. Ambulates with bilaterally normal heel strike and toe off but reports increased pain on left with heel or toe standing. Back/Spine/Pelvis Cervical Spine: cervical ROM normal and No Cervical spine tenderness Thoracic/Lumbar Spine: thoracic and lumbar spine normal to inspection, Lasegue's sign positive on the left and localized, pain with thoraco-lumbar ROM, paraspinal muscle tenderness on the left greater than right, No thoracic spinal tenderness, lumbar spinal tenderness (L4-S1) and straight leg raise positive (lateral and posterior left leg pain with SLR testing) left at 40 degrees and at 50 degrees Extrem General: Yes capillary refill normal, Yes no clubbing, cyanosis or edema and Yes no calf tenderness Results Reviewed Results Reviewed: XR LUMBOSACRAL SPINE WITH OBLIQUES 05/23/22 FINDINGS: There is 6 mm anterior subluxation of L5 with respect to S1. This is stable flexion-extension views. This is new from prior exams. Bone alignment is otherwise normal. There is an old L1 vertebral body compression fracture. There is degenerative disc disease at L5-S1. There is lower lumbar spine facet arthritis. No par defects seen. IMPRESSION: Old L1 compression fracture. 6 mm anterior subluxation of L5 with respect to S1 stable on flexion-extension views. Degenerative disc disease at L5-S1 and severe facet arthritis. 05/10/2022 MR LUMBAR SPINE WITHOUT CONTRAST 11/01/22 CLINICAL INFORMATION: Radiculopathy. Low back pain. COMPARISON: MRI dated 01/20/2011 and x-ray from 05/23/2022. TECHNIQUE: Multiplanar, multisequence imaging was obtained. FINDINGS: VERTEBRAL BODIES AND PARASPINAL STRUCTURES: There is a chronic mild superior endplate compression fracture deformity again visible at the L1 level. Mild scattered fatty marrow signal changes are stable. There is very mild anterior/superior endplate edema at the T12 level with osteophytic spurring. Multilevel endplate Schmorl's nodes visible. Moderate loss of disc height evident at the L5-S1 level where there is a grade 1 anterolisthesis and a 7 mm slippage. There is behr-yh-bhxskwwq endplate edema at L5-S1 and in the posterior elements on the right side, presumably stress-related. The paraspinal soft tissues are otherwise unremarkable. Right-sided pelvic kidney noted. The imaged bony pelvis is unremarkable. There is an incompletely visualized 3.6 cm lesion which may represent a cyst versus hemangioma at the hepatic dome on the nondiagnostic localizer acquisition. CONUS MEDULLARIS AND CAUDA EQUINE: The distal cord, conus tip, and cauda equina nerve roots are normal. SPINAL LEVELS: L1-L2: Tiny central disc protrusion. No central canal stenosis or foraminal narrowing. L2-L3: Mild disc degeneration and disc bulge without central canal stenosis or foraminal narrowing. Previous small posterior annular fissure is no longer seen. Very mild retrosubluxation. L3-L4: Mild superior endplate concavity lateralized to the right side with fatty marrow endplate changes at L3, new from the prior MR study. Minimal disc bulge and posterior annular fissure. No central canal stenosis or foraminal narrowing. L4-L5: Mild posterior subluxation and new broad-based disc bulge mildly impressing upon the ventral thecal sac with mild facet arthropathy. No central canal stenosis. Mild foraminal narrowing. L5-S1: Anterolisthesis and moderate loss of disc height with progressed severe facet arthropathy compared to prior imaging. Mild marrow edema in the posterior elements on the right side. Jphc-gs-qbbnfldf endplate edema as well. Fwjj-ds-ahnrivfu foraminal narrowing, worse on the left side, with facet spurring and bulging disc compressing the exiting left L5 nerve root. Moderate central canal stenosis with facet spurring mildly impressing upon the S1 nerve roots in the subarticular zones bilaterally. IMPRESSION: 1. Progressed spondylosis at the L5-S1 level with a grade 1 anterolisthesis and moderate degenerative disc disease. Marrow edema in the endplates and posterior elements on the right side, presumably stress-related in etiology. Moderate central canal stenosis with facet spurring mildly impressing upon the S1 nerve roots in the subarticular zones. Moderate left foraminal narrowing with facet spurring and bulging disc compressing the exiting left L5 nerve root. 2. Mild posterior subluxation and broad-based disc bulge at the L4-L5 level with mild foraminal narrowing. 3. Incompletely visualized 3.6 cm lesion at the hepatic dome which may represent a cyst versus hemangioma. This could be further evaluated with follow-up sonography. Assessment & Plan Assessment & Plan (1) Lumbar radiculopathy: Code(s): M54.16 - Radiculopathy, lumbar region (2) Chronic pain syndrome: Code(s): G89.4 - Chronic pain syndrome (3) Lumbar spondylosis: Code(s): M47.816 - Spondylosis without myelopathy or radiculopathy, lumbar region (4) Vertebrogenic low back pain: Code(s): M54.51 - Vertebrogenic low back pain (5) Low back pain: Code(s): M54.50 - Low back pain, unspecified Plan Recent lumbar spine MRI results were reviewed with patient in a greater detail and are noted above. Discussed interventional treatments for axial low back, vertebrogenic and left sided radicular back pain. Patient would like to proceed with therapeutic steroid injection for her left radicular pain. For her degenerative changes on the endplates with multilevel endplate Schmorl's nodes, she is a good candidate for possible Intracept procedure. Informational pamphlet provided on Intracept. Schedule Left L5-S1 TFESI with local and fluoroscopy for ongoing left sided radiculopathy. 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 Fermin. Expectations, risks and benefits were reviewed. Patient is aware she will be contacted to schedule this procedure. All questions were answered and the patient is in agreement of plan. Follow-up after injections and sooner as needed. Coding Level of Care Code Est Pt Level 4 (87213) Diagnoses Lumbar radiculopathy M54.16 Chronic pain syndrome G89.4 Lumbar spondylosis M47.816 Vertebrogenic low back pain M54.51 Low back pain M54.50
[2022-11-16 09:57] VITALS: BP 140/72; PULSE 91; O2SAT 96; BMI 26.3
== END 2022-11-16 10:26 | disposition home or self-care (01) ==
PROVIDERS: PCP Internal Medicine; Visit Provider Nurse Practitioner Family
DX: M54.16 Radiculopathy, lumbar region (principal); G89.4 Chronic pain syndrome; M47.816 Spondylosis without myelopathy or radiculopathy, lumbar region; M54.51 Vertebrogenic low back pain; M54.50 Low back pain, unspecified
CPT/HCPCS: 99214

== ENCOUNTER → 2022-11-16 09:51 | Outpatient (BNVA) | payer OTHER, SELFPAY | PROVIDERS: PCP Internal Medicine; Visit Provider Nurse Practitioner Family | DX: M54.16 Radiculopathy, lumbar region (principal); M47.816 Spondylosis without myelopathy or radiculopathy, lumbar region; M54.51 Vertebrogenic low back pain; M54.50 Low back pain, unspecified; G89.4 Chronic pain syndrome | CPT/HCPCS: 99212 ==

== ENCOUNTER 2022-11-16 10:30 | Outpatient (AMB) | payer OTHER, SELFPAY ==
--- NOTE | 2022-11-16 10:33 | MHC.PC.OV ---
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 Accompanied by: Self / Same As Patient Allergies soy [SOY] Allergy (Intermediate, Verified 11/16/22 10:34) FLUSHING,ITCHY lisinopril Allergy (Unknown, Verified 11/16/22 10:34) Cough buspirone Adverse Reaction (Intermediate, Verified 11/16/22 10:34) psychosis Medication List - Last Reconciled 11/16/22 by Ernst Andre MD belatacept 375 mg IV Q4W betamethasone valerate 0.1% 1 appl topical DAILY PRN 14 days bupropion HCl 300 mg PO DAILY bupropion HCl 150 mg PO DAILY clonazepam 1 mg PO BID diclofenac sodium 1% (Voltaren Arthritis Pain) 4 grams topical QID PRN fluticasone propionate 50 mcg/actuation 1 spray intranasal DAILY lidocaine 5% 1 patch topical DAILY PRN lidocaine-prilocaine 2.5-2.5 % 1 appl topical DAILY loratadine (Allergy Relief (loratadine)) 10 mg PO DAILY PRN multivitamin 1 tab PO DAILY mycophenolate sodium 540 mg PO BID omeprazole 20 mg PO DAILY paroxetine HCl (Paxil) 20 mg PO DAILY rosuvastatin 5 mg PO DAILY Tobacco use date assessed: 09/27/22 Dental Screening Dental Screen Date: 11/16/22 Did you have a dental visit in the last 12 months?: No Did you have a dental problem in the last 6 months where you did not have access to dental care?: No Was dental information given to patient?: Patient has dentist HPI pain relief HPI Details has chronic back pain; goes to [facility] and she wants pain meds; I can not prescribe narcotocs but we can try other rx [facility] Medical History Polycystic kidney disease Peripheral neuropathy Eczema Neuropathy Surgical History Kidney transplant recipient History of surgery on arm History of D&C History of nephrectomy History of tubal ligation History of kidney transplant Family History Father Polycystic kidney disease Mother No problems noted. Paternal Grandmother Polycystic kidney disease Social History Housing: House Alcohol intake: never Patient Tobacco Use Status: Never used Tobacco e-Cigarette/Vaping Use: Never Used Second Hand Smoke Exposure: No service: No Current occupational status: disabled Current occupational exposures/hazards: No Cognitive needs: No Hearing needs: No Vision needs: Yes Questionnaire PHQ-9 Over the last 2 weeks, how often have you been bothered by any of the following problems? 1. Little interest or pleasure in doing things: several days 2. Feeling down, depressed, or hopeless: nearly every day 3. Trouble falling or staying asleep, or sleeping too much: nearly every day 4. Feeling tired or having little energy: nearly every day 5. Poor appetite or overeating: nearly every day 6. Feeling bad about yourself - or that you are a failure or have let yourself or your family down: not at all 7. Trouble concentrating on things, such as reading the newspaper or watching television: not at all 8. Moving or speaking so slowly that other people could have noticed. Or the opposite - being so fidgety or restless that you have been moving around a lot more than usual: not at all 9. Thoughts that you would be better off or of hurting yourself in some way: not at all Total score: 13 Depression Screening Interpretation: Negative Depression Screening Done: Yes Source: Developed by Drs. Tariq Rivera, Adam Monteiro and colleagues, with an educational joaquín from [employer]. Thrive Questionnaire Date Thrive assessed: 06/14/22 AUDIT C Alcohol Use Questionnaire (AUDIT-C) 1. How often do you have a drink containing alcohol?: Never 3. How often do you have six or more drinks on one occasion?: Never Total Score: 0 Score Reviewed/Action Taken: No ANDREIA-7 AMB Questionnaire ANDREIA-7 Date ANDREIA - 7 assessed: 09/27/22 Source: Developed by Drs. Tariq Rivera, Adam Monteiro and colleagues, with an educational joaquín from [employer]. Review of Systems Const Denies chills, Denies headache(s) and Denies weight loss ENT Denies headache(s) Card Denies chest pain, Denies syncope, Denies irregular heart rhythm and Denies dyspnea Resp Denies chest congestion, Denies cough and Denies dyspnea GI Denies abdominal pain, Denies change in stool character, Denies nausea and Denies vomiting Musc Denies deformity and Denies joint swelling Neuro Denies syncope and Denies headache(s) Physical exam (Primary Care) Vital Signs: Last Vital Signs Pulse 90 11/16/22 10:34 BP 134/72 11/16/22 10:34 Pulse Ox 99 11/16/22 10:34 Oxygen Delivery Method Room Air 11/16/22 10:34 BMI result Body Mass Index 25.2 Tobacco/Smoking Status: Tobacco use Status Tobacco use date assessed 09/27/22 11/16/22 10:34 Patient Tobacco Use Status Never used Tobacco 11/16/22 10:34 e-Cigarette/Vaping Use Never Used 11/16/22 10:34 PHQ-9: PHQ-9 Score PHQ-9: Total score 13 11/16/22 11:03 Depression Screening Interpretation: Negative Thrive Assessment: Date of Thrive Assessment Date Thrive assessed 06/14/22 11/16/22 10:34 Const General: cooperative, comfortable, no acute distress and alert Neck Neck: Yes no lymphadenopathy Thyroid: Thyroid normal Resp Effort & Inspection: normal respiratory effort Auscultation: clear to auscultation bilaterally Percussion: percussion normal Cardio Jugular venous distension: no JVD Palpation: normal PMI Rate: regular rate Rhythm: regular rhythm Heart sounds: S1 normal heart sound present and S2 normal heart sound present GI Inspection: Yes normal to inspection Palpation (GI): No hepatosplenomegaly present Skin General skin exam: no rashes or lesions noted Extrem General: Yes no clubbing, cyanosis or edema Assessment and Plan Assessment & Plan (1) Lumbar radiculopathy: Code(s): M54.16 - Radiculopathy, lumbar region Plan: rx sent Medications: New cyclobenzaprine 10 mg PO TID PRN 30 tabs 2RF muscle spasm Coding Level of Care Code Est Pt Level 3 (20186) Diagnoses Lumbar radiculopathy M54.16
[2022-11-16 10:34] VITALS: BP 134/72; PULSE 90; O2SAT 99; BMI 25.2
== END 2022-11-16 11:33 | disposition home or self-care (01) ==
LOC: HO.HMGH 10:30
PROVIDERS: PCP Internal Medicine; Visit Provider Internal Medicine
DX: M54.16 Radiculopathy, lumbar region (principal); Z79.899 Other long term (current) drug therapy
CPT/HCPCS: 99213

== ENCOUNTER 2022-12-12 06:08 | Outpatient (REF) | payer OTHER, SELFPAY ==
--- NOTE | ~2022-12-12 | FL_ITS ---
EXAMINATION: XR FLUOROSCOPY WITH IMAGES CLINICAL INFORMATION: Radiculopathy, lumbar region. COMPARISON: None available. TECHNIQUE: Fluoroscopy Supervised By: Dr. Brannon Ramirez. Fluoroscopy Time: 0.2 minutes. Cumulative Dose: 5.19 mGy. DAP: 0.0697 Gycm2. Images: 2. FINDINGS: Images demonstrate needle placement and contrast injection adjacent to the left lateral L5 vertebral body. There may also be contrast adjacent to the left lateral S1 vertebral body. FL/FL guidance in treatment room IMPRESSION: Fluoroscopy guidance for pain management procedure
== END 2022-12-12 06:09 | disposition home or self-care (01) ==
LOC: CF 06:08
PROVIDERS: Visit Provider Anesthesiology
DX: M47.26 Other spondylosis with radiculopathy, lumbar region (principal); G89.4 Chronic pain syndrome; M54.51 Vertebrogenic low back pain
CPT/HCPCS: 64483; J3301; Q9967

== ENCOUNTER 2022-12-12 07:08 | Outpatient (AMB) | payer OTHER, SELFPAY ==
[2022-12-12 07:32] VITALS: BP 130/64; PULSE 73; O2SAT 99; BMI 25.1
--- NOTE | 2022-12-12 07:32 | A.OFFVIS_ITS ---
Intake Vital Signs 12/12/22 07:32 12/12/22 08:04 Height 5 ft 7 in 5 ft 7 in Weight 160 lb 160 lb BMI 25.1 25.1 BP 130/64 132/70 Blood Pressure Location Lt brachial Lt brachial Position Sitting Sitting Respiration 14 Pulse 73 73 Pulse Source Pulse Oximeter Pulse Oximeter Pulse Oximetry (%) 99 98 Oxygen Delivery Method Room Air Room Air Comment Pre-Op Post-Op Intake Visit Reasons: L L5-S1 TFESI/LOCAL Inspector Process Required: No Accompanied by: Self / Same As Patient Allergies soy [SOY] Allergy (Intermediate, Verified 12/12/22 07:35) FLUSHING,ITCHY lisinopril Allergy (Unknown, Verified 12/12/22 07:35) Cough buspirone Adverse Reaction (Intermediate, Verified 12/12/22 07:35) psychosis PFSH Medical History Polycystic kidney disease Peripheral neuropathy Eczema Neuropathy Surgical History Kidney transplant recipient History of surgery on arm History of D&C History of nephrectomy History of tubal ligation History of kidney transplant Family History Father Polycystic kidney disease Mother No problems noted. Paternal Grandmother Polycystic kidney disease Social History Housing: House Alcohol intake: never Patient Tobacco Use Status: Never used Tobacco e-Cigarette/Vaping Use: Never Used Second Hand Smoke Exposure: No service: No Current occupational status: disabled Current occupational exposures/hazards: No Cognitive needs: No Hearing needs: No Vision needs: Yes Physical Exam Vital Signs: Last Vital Signs Pulse 73 12/12/22 08:04 Resp 14 12/12/22 08:04 BP 132/70 12/12/22 08:04 Pulse Ox 98 12/12/22 08:04 Oxygen Delivery Method Room Air 12/12/22 08:04 BMI result Body Mass Index 25.1 Assessment & Plan Assessment & Plan (1) Lumbar radiculopathy: Code(s): M54.16 - Radiculopathy, lumbar region Plan: Transforaminal epidural steroid injection L5-S1 on the left. THE PATIENT CAME TO THE OPERATING ROOM AFTER OBTAINING INFORMED CONSENT. THE RISKS OF THE PROCEDURE WERE DELINEATED THE RISK OF BLEEDING INFECTION PERIPHERAL NERVE DAMAGE EPIDURAL HEMATOMA EPIDURAL ABSCESS AND OTHER UNSPECIFIED RISKS. THE PATIENT WAS POSITIONED PRONE ON THE OPERATING TABLE . TIME-OUT WAS OBTAINED DELINEATING CORRECT SIDE AND SITE OF THE PROCEDURE, PAT IENT NAME AND DATE OF , NEED OF THE ANTIBIOTIC, RISK OF FIRE. The PATIENT PARTICIPATED IN THE TIME OUT PROCEDURE. LUMBAR AREA OF THE PATIENT WAS PREPPED WITH CHLORAPREP AND DRAPED WITH STERILE D RAPES, STERILELY DRAPED C-ARM WAS BROUGHT OVER THE OPERATING FIELD AND SQ PICTURE OF L5 VERTEBRA WAS DELINEATED ON THE SCREEN. C-ARM WAS TILTED 20? CEPHALAD AND 25 DEGREES TO THE RIGHT TO DEMONSTRATE THE MOST PROMINENT IMAGE OF THE SAP on THE RIGHT. THE LATERAL BORDER OF THE SAP PROJECTION TO THE SKIN WAS CHOSEN A STARTING POINT OF THE INJECTION. 22 GAUGE 5 IN SPINAL NEEDLE WAS INSERTED THROUGH THE SKIN AND STARTED TO ADVANCE TO THE FORAMINA IN ANTERIOR POSTERIOR, OBLIQUE AND LATERAL VIEWS IN TUNNEL VISION FASHION. WHEN ON LATERAL VIEW THE NEEDLE ENTERED THE MOST POSTERIOR AND INFERIOR PORTION OF THE FORAMINA INJECTION OF THE CONTRAST PERFORMED DELINEATING ANTERIOR EPIDURAL SPREAD OF THE CONTRAST. AFTER THAT TREATMENT SOLUTION CONTAINING 3 ML OF PRESERVATIVE-FREE LIDOCAINE 1% MIXED WITH KENALOG 40 MG WAS INJECTED INTO THE NEEDLE. UPON COMPLETION OF THE INJECTION THE NEEDLE WAS REMOVED AND STERILE DRESSING WAS APPLIED. PATIENT TOLERATED PROCEDURE WELL SHE WAS TAKEN OUTSIDE OF THE OPERATING ROOM to the recovery room where she recovered uneventfully. (2) Chronic pain syndrome: Code(s): G89.4 - Chronic pain syndrome (3) Lumbar spondylosis: Code(s): M47.816 - Spondylosis without myelopathy or radiculopathy, lumbar region (4) Vertebrogenic low back pain: Code(s): M54.51 - Vertebrogenic low back pain (5) Low back pain: Code(s): M54.50 - Low back pain, unspecified Plan Recent lumbar spine MRI results were reviewed with patient in a greater detail and are noted above. Discussed interventional treatments for axial low back, vertebrogenic and left sided radicular back pain. Patient would like to proceed with therapeutic steroid injection for her left radicular pain. For her degenerative changes on the endplates with multilevel endplate Schmorl's nodes, she is a good candidate for possible Intracept procedure. Informational pamphlet provided on Intracept. Schedule Left L5-S1 TFESI with local and fluoroscopy for ongoing left sided radiculopathy. We will obtain clearance from her Agricultural Systems Specialist Dr. Fermin. Expectations, risks and benefits were reviewed. Patient is aware she will be contacted to schedule this procedure. All questions were answered and the patient is in agreement of plan. Follow-up after injections and sooner as needed. Orders: Orders FL guidance in treatment room Today M54.16 - Radiculopathy, lumbar region Coding Level of Care Code Procedure Only Diagnoses Lumbar radiculopathy M54.16 Chronic pain syndrome G89.4 Lumbar spondylosis M47.816 Vertebrogenic low back pain M54.51 Low back pain M54.50
[2022-12-12 08:04] VITALS: BP 132/70; PULSE 73; RESP 14; O2SAT 98; BMI 25.1
== END 2022-12-12 08:07 | disposition home or self-care (01) ==
LOC: HO.PMCPRC 07:08
PROVIDERS: PCP Internal Medicine; Visit Provider Anesthesiology
DX: M54.16 Radiculopathy, lumbar region (principal)
CPT/HCPCS: 64483

== ENCOUNTER 2023-01-02 08:49 | Outpatient (AMB) | payer OTHER, SELFPAY ==
--- NOTE | 2023-01-02 08:51 | MHC.OFFVIS ---
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 Patient reports good pain relief with recent epidural steroid injection for the first 3 weeks and feels left lateral leg symptoms are gradually returning. She reports significant improvement in her pain since procedure with better functioning, mobility and sleep. Patient will continue to monitor her radicular symptoms. Patient reports since starting Qutenza, the burning sensations in her feet have substantially decreased. Denies any recent fever, cough, cold, infection, bladder or bowel dysfunction, saddle anesthesia or other significant changes in medical history since last office visit. Past Procedures: 12/12/22: Left L5-S1 TFESI-90% for 3 weeks PRIOR: Veronica is a very pleasant 57 year old female who presents to the office today for follow up left lower back pain. Patient reports she has been suffering with this pain for many years, completed PT last year with improvement of the pain but it has since returned. She has been doing home exercise program as instructed on discharge from PT with no relief. She is s/p kidney transplant, unable to take PO NSAIDs but has tried topical voltaren cream with some help. She used opiates and muscle relaxers in the past with some relief. Using heat and lidocaine patches, both help some but not all the time. Tried gabapentin recently but could not tolerate the side effects. Pain today 7/10 with radiation down the left leg into the left foot. She denies red flag symptoms including loss of bowel, bladder or saddle anesthesia. PRIOR: Patient presents today via telehealth encounter to discuss EMG and nerve conduction studies. Patient continues to endorse bilateral neuropathy pain in her legs and feet and axial low back pain. Neurodiagnostic studies revealed moderately severe axonal sensory greater than motor peripheral neuropathy in the lower extremities bilaterally with relative sparing of the tibial and sural nerves. EMG of the right L4-S1 innervated muscles consistent with distal chronic neuropathic changes of neuropathy. Patient is interested to proceed with SCS trial. I will submit referral for behavioral assessment to [facility] providers. Patient denies any recent cough, cold, infection, fever or other significant changes in medical history since last office visit. PRIOR: Patient presents today in the office for medication review. Patient has tried gabapentin and had to discontinue due to memory issues and fuzzy head sensations. Topical compound cream from [employer] was not approved by her insurance. Patient is scheduled to undergo EMG and NVC studies in April. If neurodiagnostic studies show axonal neuropathy, we will discuss longer term pain relief with [facility] SCS trial and proceed with behavioral assessment as initial step for SCS trial. Patient reports she recently underwent head CT scan for headaches and it showed no acute findings. Patient denies any changes in her medical or surgical history and no recent hospitalizations or Urgent clinic visits since last visit. 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 She attributes chronic neuropathy to renal failure. Patient denies diabetes with most recent A1C 5.3. Patient reports her back pain is currently axial that spreads across her back without radiation to her lower extremities. Her main concern today is bilateral foot neuropathic pain. She has been under the care of a neurologist in the past and had EMG testing done many years ago. Patient has no reports of EMG testing today. She reports her gait and balance has been affected lately with occasional falling. Her pain is described as constant throbbing, pounding, shooting, stabbing, sharp, cutting, pinching, searing, burning, numbness, crawling, tingling, stinging, sore, hurting, aching, heavy, tiring, exhausting, sickening, piercing, tight, squeezing, and cold. Patient reports she completed physical therapy 4 months ago with improvement in her sciatica symptoms. Denies back surgery or injections. She underwent a left bunionectomy by Dr. Landa at [facility] in 2018. Patient reports she has tried gabapentin and Lyrica in the past that has been not effective. She has not tried amitriptyline or duloxetine in the past and currently these medications will significantly interfere with her taking bupropion. Patient has been on pain medical management by Dr. Andre for the past 20 years and has been tapered off oxycodone 4 months ago. She emphasized that oxycodone has been the most effective for her chronic foot neuropathy. I have informed patient that our office does not offer opioid prescribing at this time. Patient denies any fever, chills, weight changes, abdominal or groin pain, dizziness, shortness of breaths, weakness, infection, swelling, rash, bowel or bladder incontinence or saddle anesthesia. [facility] Medical History Polycystic kidney disease Peripheral neuropathy Eczema Neuropathy Surgical History Kidney transplant recipient History of surgery on arm History of D&C History of nephrectomy History of tubal ligation History of kidney transplant Family History Father Polycystic kidney disease Mother No problems noted. Paternal Grandmother Polycystic kidney disease Social History Housing: House Alcohol intake: never Patient Tobacco Use Status: Never used Tobacco e-Cigarette/Vaping Use: Never Used Second Hand Smoke Exposure: No service: No Current occupational status: disabled Current occupational exposures/hazards: No Cognitive needs: No Hearing needs: No Vision needs: Yes Review of Systems Const All systems reviewed & are unremarkable except as noted in HPI and below Physical Exam Vital Signs: Last Vital Signs Pulse 83 01/02/23 09:26 BP 134/80 01/02/23 09:26 Pulse Ox 99 01/02/23 09:26 Oxygen Delivery Method Room Air 01/02/23 09:26 BMI result Body Mass Index 23.6 General: Appears afebrile. Alert and oriented. Mood and affect appropriate. Follows and participates in conversation appropriately. Respiratory effort is unlabored. No cough. Able to transition from sit to stand unassisted. Ambulates with bilaterally normal heel strike and toe off but reports increased pain on left with heel or toe standing. Back/Spine/Pelvis Cervical Spine: cervical ROM normal and No Cervical spine tenderness Thoracic/Lumbar Spine: thoracic and lumbar spine normal to inspection, Lasegue's sign positive on the left and localized, pain with thoraco-lumbar ROM, paraspinal muscle tenderness on the left greater than right, No thoracic spinal tenderness, lumbar spinal tenderness (L4-S1) and straight leg raise positive (lateral and posterior left leg pain with SLR testing) left at 40 degrees and at 50 degrees Extrem General: Yes capillary refill normal, Yes no clubbing, cyanosis or edema and Yes no calf tenderness Office Procedures Topical Capsaicin Date 1:: 07/04/22 Date 2:: 10/03/22 Date 3:: 01/02/23 Main area of pain on the body: Bilateral feet Laterality: Bilateral Location of left foot pain: Plantar and Dorsal Location of right foot pain: Plantar and Dorsal Quality of pain: Nagging, Gnawing and Numb-like Details:: Two patches, 560 cm2 were utilized per each foot. EMLA Cream (lidocaine 2.5% and prilocaine 2.5%) was not applied by patient prior to application of the patches as she states her neuropathy is significant and she does not feel her feet. The patient tolerated the procedure well. Her vitals signs remained stable throughout the procedure. Patient was able to complete the stipulated 30 minutes of the therapeutic application without any discomfort. Office Meds capsaicin-skin cleanser 8 % topical kit Performing Provider: NATE Junior Performing Location: [facility] Administered by: NATE Junior on 01/02/23 09:05 Dose Route Admin Location Dispensed Lot Number Expiration Date NDC Extension Work Director 4 ea topical [facility] 4 ea [id number] 02/12/25 72235-794-57 [employer] Writer Results Reviewed Results Reviewed: XR LUMBOSACRAL SPINE WITH OBLIQUES 05/23/22 FINDINGS: There is 6 mm anterior subluxation of L5 with respect to S1. This is stable flexion-extension views. This is new from prior exams. Bone alignment is otherwise normal. There is an old L1 vertebral body compression fracture. There is degenerative disc disease at L5-S1. There is lower lumbar spine facet arthritis. No par defects seen. IMPRESSION: Old L1 compression fracture. 6 mm anterior subluxation of L5 with respect to S1 stable on flexion-extension views. Degenerative disc disease at L5-S1 and severe facet arthritis. 05/10/2022 MR LUMBAR SPINE WITHOUT CONTRAST 11/01/22 CLINICAL INFORMATION: Radiculopathy. Low back pain. COMPARISON: MRI dated 01/20/2011 and x-ray from 05/23/2022. TECHNIQUE: Multiplanar, multisequence imaging was obtained. FINDINGS: VERTEBRAL BODIES AND PARASPINAL STRUCTURES: There is a chronic mild superior endplate compression fracture deformity again visible at the L1 level. Mild scattered fatty marrow signal changes are stable. There is very mild anterior/superior endplate edema at the T12 level with osteophytic spurring. Multilevel endplate Schmorl's nodes visible. Moderate loss of disc height evident at the L5-S1 level where there is a grade 1 anterolisthesis and a 7 mm slippage. There is [id number] endplate edema at L5-S1 and in the posterior elements on the right side, presumably stress-related. The paraspinal soft tissues are otherwise unremarkable. Right-sided pelvic kidney noted. The imaged bony pelvis is unremarkable. There is an incompletely visualized 3.6 cm lesion which may represent a cyst versus hemangioma at the hepatic dome on the nondiagnostic localizer acquisition. CONUS MEDULLARIS AND CAUDA EQUINE: The distal cord, conus tip, and cauda equina nerve roots are normal. SPINAL LEVELS: L1-L2: Tiny central disc protrusion. No central canal stenosis or foraminal narrowing. L2-L3: Mild disc degeneration and disc bulge without central canal stenosis or foraminal narrowing. Previous small posterior annular fissure is no longer seen. Very mild retrosubluxation. L3-L4: Mild superior endplate concavity lateralized to the right side with fatty marrow endplate changes at L3, new from the prior MR study. Minimal disc bulge and posterior annular fissure. No central canal stenosis or foraminal narrowing. L4-L5: Mild posterior subluxation and new broad-based disc bulge mildly impressing upon the ventral thecal sac with mild facet arthropathy. No central canal stenosis. Mild foraminal narrowing. L5-S1: Anterolisthesis and moderate loss of disc height with progressed severe facet arthropathy compared to prior imaging. Mild marrow edema in the posterior elements on the right side. Ahxj-[id number] endplate edema as well. [id number] foraminal narrowing, worse on the left side, with facet spurring and bulging disc compressing the exiting left L5 nerve root. Moderate central canal stenosis with facet spurring mildly impressing upon the S1 nerve roots in the subarticular zones bilaterally. IMPRESSION: 1. Progressed spondylosis at the L5-S1 level with a grade 1 anterolisthesis and moderate degenerative disc disease. Marrow edema in the endplates and posterior elements on the right side, presumably stress-related in etiology. Moderate central canal stenosis with facet spurring mildly impressing upon the S1 nerve roots in the subarticular zones. Moderate left foraminal narrowing with facet spurring and bulging disc compressing the exiting left L5 nerve root. 2. Mild posterior subluxation and broad-based disc bulge at the L4-L5 level with mild foraminal narrowing. 3. Incompletely visualized 3.6 cm lesion at the hepatic dome which may represent a cyst versus hemangioma. This could be further evaluated with follow-up sonography. Assessment & Plan Assessment & Plan (1) Peripheral neuropathy: Code(s): G62.9 - Polyneuropathy, unspecified (2) Chronic pain syndrome: Code(s): G89.4 - Chronic pain syndrome (3) Lumbar radiculopathy: Code(s): M54.16 - Radiculopathy, lumbar region (4) Lumbar spondylosis: Code(s): M47.816 - Spondylosis without myelopathy or radiculopathy, lumbar region (5) Chronic pain of both feet: Code(s): M79.671 - Pain in right foot; M79.672 - Pain in left foot; G89.29 - Other chronic pain Plan Patient is status post 3rd round of application of topical capsaicin 8% for neuropathy in bilateral feet. Patient tolerated the procedure without significant discomfort without application of EMLA cream prior to the procedure. Patient is very content with Qutenza treatments and notices significant improvement in her neuropathy symptoms. Patient will continue to monitor her left sided radicular symptoms s/p left L5-S1 TFESI injection on 12/12/22, she notes pain is starting to return after 3 weeks. She was discharged home in stable condition with discharge instructions. All questions and concerns were answered and the patient agreed with the plan. Greater than 38 minutes were spent in therapeutic application and in coordination of the care. Orders: Orders AMB Capsaicin Patch - Practice Supplied Today G62.9 - Polyneuropathy, unspecified Coding Level of Care Code Est Pt Level 4 (60516) Diagnoses Peripheral neuropathy G62.9 Chronic pain syndrome G89.4 Lumbar radiculopathy M54.16 Lumbar spondylosis M47.816 Chronic pain of both feet M79.671; M79.672; G89.29
[2023-01-02 08:54] VITALS: BP 131/60; PULSE 89; O2SAT 99; BMI 23.6
[2023-01-02 09:26] VITALS: BP 134/80; PULSE 83; O2SAT 99
[2023-01-02 09:43] VITALS: BP 111/88; PULSE 92; O2SAT 99
== END 2023-01-02 09:44 | disposition home or self-care (01) ==
PROVIDERS: PCP Internal Medicine; Visit Provider Nurse Practitioner Family
DX: G62.9 Polyneuropathy, unspecified (principal); G89.4 Chronic pain syndrome; M54.16 Radiculopathy, lumbar region; M47.816 Spondylosis without myelopathy or radiculopathy, lumbar region; M79.671 Pain in right foot; M79.672 Pain in left foot; G89.29 Other chronic pain
CPT/HCPCS: 17999; 99214

== ENCOUNTER → 2023-01-02 08:49 | Outpatient (BNVA) | payer OTHER, SELFPAY | PROVIDERS: PCP Internal Medicine; Visit Provider Nurse Practitioner Family | DX: G62.9 Polyneuropathy, unspecified (principal); G89.4 Chronic pain syndrome; M54.16 Radiculopathy, lumbar region; M47.816 Spondylosis without myelopathy or radiculopathy, lumbar region; M79.671 Pain in right foot; M79.672 Pain in left foot | CPT/HCPCS: 17999; 99212; J7336 ==

== ENCOUNTER 2023-03-06 13:48 | Outpatient (AMB) | payer OTHER, SELFPAY ==
--- NOTE | 2023-03-06 13:50 | MHC.OFFVIS ---
Intake Vital Signs 03/06/23 13:53 Height 5 ft 7 in Weight 152 lb BMI 23.8 BP 131/60 Blood Pressure Location Lt brachial Position Sitting Pulse 83 Pulse Source Pulse Oximeter Pulse Oximetry (%) 97 Oxygen Delivery Method Room Air Intake Visit Reasons: Follow up/Sciatica Pain Intake Note: Pain today 5/10 [facility] Dem[employer]ator Required: No Accompanied by: Self / Same As Patient Allergies soy [SOY] Allergy (Intermediate, Verified 03/06/23 13:53) FLUSHING,ITCHY lisinopril Allergy (Unknown, Verified 03/06/23 13:53) Cough buspirone Adverse Reaction (Intermediate, Verified 03/06/23 13:53) psychosis HPI HPI Comments History of Present Illness Details Patient presents today for follow up for left radicular back symptoms. She reports good pain relief for 3 months. Her back pain has been gradually returning and affecting her mobility and daily functioning. Pain today 5/10 at rest/sitting and 7/10 with walking with radiation down the left leg posteriorly and into the left foot and toes. Patient has h/o kidney transplant, unable to take NSAIDs but has tried topical voltaren cream with minimal relief. She used opiates and muscle relaxers in the past with some relief. Using heat and lidocaine patches, both help temporarily. Patient also tried gabapentin last year but could not tolerate the side effects. She reports moderate pain relief in her bilateral feet with topical capsaicin 8% patch that she receives every 3 months. Patient is interested to repeat left L5-S1 TFESI injection for her radicular pain prior to leaves to [place] in a month. We previously discussed neuromodulation with SCS trial and Intracept procedures. Denies any recent fever, cough, cold, infection, bladder or bowel dysfunction, saddle anesthesia or other significant changes in medical history since last office visit. 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 She attributes chronic neuropathy to renal failure. Patient denies diabetes with most recent A1C 5.3. Patient reports her back pain is currently axial that spreads across her back without radiation to her lower extremities. Her main concern today is bilateral foot neuropathic pain. She has been under the care of a neurologist in the past and had EMG testing done many years ago. Patient has no reports of EMG testing today. She reports her gait and balance has been affected lately with occasional falling. Her pain is described as constant throbbing, pounding, shooting, stabbing, sharp, cutting, pinching, searing, burning, numbness, crawling, tingling, stinging, sore, hurting, aching, heavy, tiring, exhausting, sickening, piercing, tight, squeezing, and cold. Patient reports she completed physical therapy 4 months ago with improvement in her sciatica symptoms. Denies back surgery or injections. She underwent a left bunionectomy by Dr. Landa at [facility] in 2018. Patient reports she has tried gabapentin and Lyrica in the past that has been not effective. She has not tried amitriptyline or duloxetine in the past and currently these medications will significantly interfere with her taking bupropion. Patient has been on pain medical management by Dr. Andre for the past 20 years and has been tapered off oxycodone 4 months ago. She emphasized that oxycodone has been the most effective for her chronic foot neuropathy. I have informed patient that our office does not offer opioid prescribing at this time. Patient denies any fever, chills, weight changes, abdominal or groin pain, dizziness, shortness of breaths, weakness, infection, swelling, rash, bowel or bladder incontinence or saddle anesthesia. [facility] Medical History Polycystic kidney disease Peripheral neuropathy Eczema Neuropathy Surgical History Kidney transplant recipient History of surgery on arm History of D&C History of nephrectomy History of tubal ligation History of kidney transplant Family History Father Polycystic kidney disease Mother No problems noted. Paternal Grandmother Polycystic kidney disease Social History Housing: House Alcohol intake: never Patient Tobacco Use Status: Never used Tobacco e-Cigarette/Vaping Use: Never Used Second Hand Smoke Exposure: No service: No Current occupational status: disabled Current occupational exposures/hazards: No Cognitive needs: No Hearing needs: No Vision needs: Yes Review of Systems Const All systems reviewed & are unremarkable except as noted in HPI and below Physical Exam Vital Signs: Last Vital Signs Pulse 83 03/06/23 13:53 BP 131/60 03/06/23 13:53 Pulse Ox 97 03/06/23 13:53 Oxygen Delivery Method Room Air 03/06/23 13:53 BMI result Body Mass Index 23.8 General: Appears afebrile. Alert and oriented. Mood and affect appropriate. Follows and participates in conversation appropriately. Respiratory effort is unlabored. No cough. Able to transition from sit to stand unassisted. Ambulates with bilaterally normal heel strike and toe off but reports increased pain on left with heel or toe standing. Back/Spine/Pelvis Cervical Spine: cervical ROM normal and No Cervical spine tenderness Thoracic/Lumbar Spine: thoracic and lumbar spine normal to inspection, Lasegue's sign positive on the left and localized, pain with thoraco-lumbar ROM, paraspinal muscle tenderness on the left greater than right, No thoracic spinal tenderness, lumbar spinal tenderness (L4-S1) and straight leg raise positive left at 50 degrees Extrem General: Yes capillary refill normal, Yes no clubbing, cyanosis or edema and Yes no calf tenderness Results Reviewed Results Reviewed: XR LUMBOSACRAL SPINE WITH OBLIQUES 05/23/22 FINDINGS: There is 6 mm anterior subluxation of L5 with respect to S1. This is stable flexion-extension views. This is new from prior exams. Bone alignment is otherwise normal. There is an old L1 vertebral body compression fracture. There is degenerative disc disease at L5-S1. There is lower lumbar spine facet arthritis. No par defects seen. IMPRESSION: Old L1 compression fracture. 6 mm anterior subluxation of L5 with respect to S1 stable on flexion-extension views. Degenerative disc disease at L5-S1 and severe facet arthritis. 05/10/2022 MR LUMBAR SPINE WITHOUT CONTRAST 11/01/22 CLINICAL INFORMATION: Radiculopathy. Low back pain. COMPARISON: MRI dated 01/20/2011 and x-ray from 05/23/2022. TECHNIQUE: Multiplanar, multisequence imaging was obtained. FINDINGS: VERTEBRAL BODIES AND PARASPINAL STRUCTURES: There is a chronic mild superior endplate compression fracture deformity again visible at the L1 level. Mild scattered fatty marrow signal changes are stable. There is very mild anterior/superior endplate edema at the T12 level with osteophytic spurring. Multilevel endplate Schmorl's nodes visible. Moderate loss of disc height evident at the L5-S1 level where there is a grade 1 anterolisthesis and a 7 mm slippage. There is sehx-sp-pftjkcqq endplate edema at L5-S1 and in the posterior elements on the right side, presumably stress-related. The paraspinal soft tissues are otherwise unremarkable. Right-sided pelvic kidney noted. The imaged bony pelvis is unremarkable. There is an incompletely visualized 3.6 cm lesion which may represent a cyst versus hemangioma at the hepatic dome on the nondiagnostic localizer acquisition. CONUS MEDULLARIS AND CAUDA EQUINE: The distal cord, conus tip, and cauda equina nerve roots are normal. SPINAL LEVELS: L1-L2: Tiny central disc protrusion. No central canal stenosis or foraminal narrowing. L2-L3: Mild disc degeneration and disc bulge without central canal stenosis or foraminal narrowing. Previous small posterior annular fissure is no longer seen. Very mild retrosubluxation. L3-L4: Mild superior endplate concavity lateralized to the right side with fatty marrow endplate changes at L3, new from the prior MR study. Minimal disc bulge and posterior annular fissure. No central canal stenosis or foraminal narrowing. L4-L5: Mild posterior subluxation and new broad-based disc bulge mildly impressing upon the ventral thecal sac with mild facet arthropathy. No central canal stenosis. Mild foraminal narrowing. L5-S1: Anterolisthesis and moderate loss of disc height with progressed severe facet arthropathy compared to prior imaging. Mild marrow edema in the posterior elements on the right side. Pxis-kj-uickeesa endplate edema as well. Yxmu-ji-paiykcgw foraminal narrowing, worse on the left side, with facet spurring and bulging disc compressing the exiting left L5 nerve root. Moderate central canal stenosis with facet spurring mildly impressing upon the S1 nerve roots in the subarticular zones bilaterally. IMPRESSION: 1. Progressed spondylosis at the L5-S1 level with a grade 1 anterolisthesis and moderate degenerative disc disease. Marrow edema in the endplates and posterior elements on the right side, presumably stress-related in etiology. Moderate central canal stenosis with facet spurring mildly impressing upon the S1 nerve roots in the subarticular zones. Moderate left foraminal narrowing with facet spurring and bulging disc compressing the exiting left L5 nerve root. 2. Mild posterior subluxation and broad-based disc bulge at the L4-L5 level with mild foraminal narrowing. 3. Incompletely visualized 3.6 cm lesion at the hepatic dome which may represent a cyst versus hemangioma. This could be further evaluated with follow-up sonography. Assessment & Plan Assessment & Plan (1) Lumbar radiculopathy: Code(s): M54.16 - Radiculopathy, lumbar region (2) Chronic pain syndrome: Code(s): G89.4 - Chronic pain syndrome (3) Lumbar spondylosis: Code(s): M47.816 - Spondylosis without myelopathy or radiculopathy, lumbar region (4) Vertebrogenic low back pain: Code(s): M54.51 - Vertebrogenic low back pain (5) Low back pain: Code(s): M54.50 - Low back pain, unspecified Plan Patient presents with return of left sided radicular symptoms. We reviewed interventional treatments for axial low back, vertebrogenic and left sided radicular back pain. Patient would like to proceed with same therapeutic steroid injection for her left radicular pain that she received in November 2022. For her degenerative changes on the endplates with multilevel endplate Schmorl's nodes, she is a good candidate for possible Intracept procedure. Informational pamphlet provided on Intracept. Neuromodulation with SCS trial for back pain and peripheral neuropathy has been previously discussed as well. Schedule repeat Left L5-S1 TFESI with local and fluoroscopy for left sided radiculopathy. We will obtain clearance from her Inspector Returned Materials Dr. Fermin. Expectations, risks and benefits were reviewed. Patient is aware she will be contacted to schedule this procedure. All questions were answered and the patient is in agreement of plan. Follow-up after injections and sooner as needed. Coding Level of Care Code Est Pt Level 4 (57036) Diagnoses Lumbar radiculopathy M54.16 Chronic pain syndrome G89.4 Lumbar spondylosis M47.816 Vertebrogenic low back pain M54.51 Low back pain M54.50
[2023-03-06 13:53] VITALS: BP 131/60; PULSE 83; O2SAT 97; BMI 23.8
== END 2023-03-06 14:15 | disposition home or self-care (01) ==
PROVIDERS: PCP Internal Medicine; Visit Provider Nurse Practitioner Family
DX: M54.16 Radiculopathy, lumbar region (principal); G89.4 Chronic pain syndrome; M47.816 Spondylosis without myelopathy or radiculopathy, lumbar region; M54.51 Vertebrogenic low back pain; M54.50 Low back pain, unspecified
CPT/HCPCS: 99214

== ENCOUNTER → 2023-03-06 13:48 | Outpatient (BNVA) | payer OTHER, SELFPAY | PROVIDERS: PCP Internal Medicine; Visit Provider Nurse Practitioner Family | DX: G89.4 Chronic pain syndrome (principal); M47.26 Other spondylosis with radiculopathy, lumbar region; M54.51 Vertebrogenic low back pain | CPT/HCPCS: 99212 ==

== ENCOUNTER 2023-05-01 06:14 | Outpatient (REF) | payer OTHER, SELFPAY ==
--- NOTE | ~2023-05-01 | FL_ITS ---
EXAMINATION: XR FLUOROSCOPY WITH IMAGES CLINICAL INFORMATION: Lumbar radiculopathy. COMPARISON: Portions of the MRI lumbar spine dated 11/01/2022. TECHNIQUE: Fluoroscopy Supervised By: Dr. Brannon Ramirez. Fluoroscopy Time: 0.4 minutes. Cumulative Dose: 5.20 mGy. DAP: 0.0903 mGym2. Images: 1. FINDINGS: The submitted image shows an injection needle and injected contrast in the vicinity of the left L5 neural foramen. FL/FL guidance in treatment room IMPRESSION: Intraoperative fluoroscopic guidance is provided lumbar spine pain management procedure. Please see the patient's Operative Report for full procedural details.
== END 2023-05-01 06:15 | disposition home or self-care (01) ==
LOC: CF 06:14
PROVIDERS: Visit Provider Anesthesiology
DX: M54.16 Radiculopathy, lumbar region (principal); G89.4 Chronic pain syndrome; M47.816 Spondylosis without myelopathy or radiculopathy, lumbar region; M54.51 Vertebrogenic low back pain; M54.50 Low back pain, unspecified
CPT/HCPCS: 64483; 64493; J3301; Q9967

== ENCOUNTER 2023-05-01 07:56 | Outpatient (AMB) | payer OTHER, SELFPAY ==
[2023-05-01 08:04] VITALS: BP 130/70; PULSE 81; RESP 14; O2SAT 96; BMI 24.9
--- NOTE | 2023-05-01 08:04 | MHC.OFFVIS ---
Intake Vital Signs 05/01/23 08:04 05/01/23 08:45 Height 5 ft 7 in 5 ft 7 in Weight 159 lb 159 lb BMI 24.9 24.9 BP 130/70 124/72 Blood Pressure Location Lt brachial Lt brachial Position Sitting Sitting Respiration 14 14 Pulse 81 80 Pulse Source Pulse Oximeter Pulse Oximeter Pulse Oximetry (%) 96 98 Oxygen Delivery Method Room Air Room Air Comment Pre-Op post-op Intake Visit Reasons: LEFT L5, S1 TFESI Allergies soy [SOY] Allergy (Intermediate, Verified 05/01/23 08:05) FLUSHING,ITCHY lisinopril Allergy (Unknown, Verified 05/01/23 08:05) Cough buspirone Adverse Reaction (Intermediate, Verified 05/01/23 08:05) psychosis [facility] Medical History Polycystic kidney disease Peripheral neuropathy Eczema Neuropathy Surgical History Kidney transplant recipient History of surgery on arm History of D&C History of nephrectomy History of tubal ligation History of kidney transplant Family History Father Polycystic kidney disease Mother No problems noted. Paternal Grandmother Polycystic kidney disease Social History Housing: House Alcohol intake: never Patient Tobacco Use Status: Never used Tobacco e-Cigarette/Vaping Use: Never Used Second Hand Smoke Exposure: No service: No Current occupational status: disabled Current occupational exposures/hazards: No Cognitive needs: No Hearing needs: No Vision needs: Yes Physical Exam Vital Signs: Last Vital Signs Pulse 80 05/01/23 08:45 Resp 14 05/01/23 08:45 BP 124/72 05/01/23 08:45 Pulse Ox 98 05/01/23 08:45 Oxygen Delivery Method Room Air 05/01/23 08:45 BMI result Body Mass Index 24.9 Assessment & Plan Assessment & Plan (1) Lumbar radiculopathy: Code(s): M54.16 - Radiculopathy, lumbar region Plan: Transforaminal epidural steroid injection L5-S1 on the left. THE PATIENT CAME TO THE OPERATING ROOM AFTER OBTAINING INFORMED CONSENT. THE RISKS OF THE PROCEDURE WERE DELINEATED THE RISK OF BLEEDING INFECTION PERIPHERAL NERVE DAMAGE EPIDURAL HEMATOMA EPIDURAL ABSCESS AND OTHER UNSPECIFIED RISKS. THE PATIENT WAS POSITIONED PRONE ON THE OPERATING TABLE . TIME-OUT WAS OBTAINED DELINEATING CORRECT SIDE AND SITE OF THE PROCEDURE, PATIENT NAME AND DATE OF , NEED OF THE ANTIBIOTIC, RISK OF FIRE. The PATIENT PARTICIPATED IN THE TIME OUT PROCEDURE. LUMBAR AREA OF THE PATIENT WAS PREPPED WITH CHLORAPREP AND DRAPED WITH STERILE DRAPES, C-ARM WAS BROUGHT OVER THE OPERATING FIELD AND SQ PICTURE OF L5 VERTEBRA WAS DELINEATED ON THE SCREEN. C-ARM WAS TILTED 10? CEPHALAD AND 35 DEGREES TO THE LEFT TO DEMONSTRATE THE MOST PROMINENT IMAGE OF THE SAP on THE LEFT. THE LATERAL BORDER OF THE SAP PROJECTION TO THE SKIN WAS CHOSEN A STARTING POINT OF THE INJECTION. 22 GAUGE 5 IN SPINAL NEEDLE WAS INSERTED THROUGH THE SKIN AND STARTED TO ADVANCE TO THE FORAMINA IN ANTERIOR POSTERIOR, OBLIQUE AND LATERAL VIEWS IN TUNNEL VISION FASHION. WHEN ON LATERAL VIEW THE NEEDLE ENTERED THE MOST POSTERIOR AND INFERIOR PORTION OF THE FORAMINA INJECTION OF THE CONTRAST PERFORMED DELINEATING EPIDURAL SPREAD OF THE CONTRAST. AFTER THAT TREATMENT SOLUTION CONTAINING 4 ML OF PRESERVATIVE-FREE LIDOCAINE 1% MIXED WITH KENALOG 40 MG WAS INJECTED INTO THE NEEDLE. UPON COMPLETION OF THE INJECTION THE NEEDLE WAS REMOVED AND STERILE DRESSING WAS APPLIED. PATIENT TOLERATED PROCEDURE WELL (2) Chronic pain syndrome: Code(s): G89.4 - Chronic pain syndrome (3) Lumbar spondylosis: Code(s): M47.816 - Spondylosis without myelopathy or radiculopathy, lumbar region Plan: (4) Vertebrogenic low back pain: Code(s): M54.51 - Vertebrogenic low back pain (5) Low back pain: Code(s): M54.50 - Low back pain, unspecified Plan Orders: Orders FL guidance in treatment room Today M54.16 - Radiculopathy, lumbar region Coding Level of Care Code Procedure Only Diagnoses Lumbar radiculopathy M54.16 Chronic pain syndrome G89.4 Lumbar spondylosis M47.816 Vertebrogenic low back pain M54.51 Low back pain M54.50
[2023-05-01 08:45] VITALS: BP 124/72; PULSE 80; RESP 14; O2SAT 98; BMI 24.9
== END 2023-05-01 08:29 | disposition home or self-care (01) ==
PROVIDERS: PCP Internal Medicine; Visit Provider Anesthesiology
DX: M54.16 Radiculopathy, lumbar region (principal); G89.4 Chronic pain syndrome; M47.816 Spondylosis without myelopathy or radiculopathy, lumbar region; M54.51 Vertebrogenic low back pain; M54.50 Low back pain, unspecified
CPT/HCPCS: 64483; 64493

== ENCOUNTER 2023-05-07 08:22 | Outpatient (AMB) | payer OTHER, SELFPAY ==
--- NOTE | 2023-05-07 08:23 | A.OFFVIS_ITS ---
Intake Vital Signs 05/07/23 08:27 05/07/23 09:05 05/07/23 09:26 Height 5 ft 7 in Weight 160 lb BMI 25.1 BP 139/66 142/85 H 167/97 H Blood Pressure Location Lt brachial Lt brachial Lt brachial Position Sitting Sitting Sitting Pulse 76 78 87 Pulse Source Pulse Oximeter Pulse Oximeter Pulse Oximeter Pulse Oximetry (%) 99 99 100 Oxygen Delivery Method Room Air Room Air Room Air Comment 15 mins after qutenza application 30 mins after qutenza application Intake Visit Reasons: Qutenza Intake Note: Pain today 0/10 in feet. Petrologist Required: No Accompanied by: Self / Same As Patient Allergies soy [SOY] Allergy (Intermediate, Verified 05/07/23 08:27) FLUSHING,ITCHY lisinopril Allergy (Unknown, Verified 05/07/23 08:27) Cough buspirone Adverse Reaction (Intermediate, Verified 05/07/23 08:27) psychosis HPI HPI Comments History of Present Illness Details Patient presents for 4th application of capsaicin 8% topical patch for peripheral neuropathy in bilateral feet. Patient reports since starting Qutenza, the burning sensations in her feet have substantially decreased. Pain is rated at 0/10. Denies any left sided radicular symptoms today. Denies any recent fever, cough, cold, infection, bladder or bowel dysfunction, saddle anesthesia or other significant changes in medical history since last office visit. 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 She attributes chronic neuropathy to renal failure. Patient denies diabetes with most recent A1C 5.3. Patient reports her back pain is currently axial that spreads across her back without radiation to her lower extremities. Her main concern today is bilateral foot neuropathic pain. She has been under the care of a neurologist in the past and had EMG testing done many years ago. Patient has no reports of EMG testing today. She reports her gait and balance has been affected lately with occasional falling. Her pain is described as constant throbbing, pounding, shooting, stabbing, sharp, cutting, pinching, searing, burning, numbness, crawling, tingling, stinging, sore, hurting, aching, heavy, tiring, exhausting, sickening, piercing, tight, squeezing, and cold. Patient reports she completed physical therapy 4 months ago with improvement in her sciatica symptoms. Denies back surgery or injections. She underwent a left bunionectomy by Dr. Landa at [facility] in 2018. Patient reports she has tried gabapentin and Lyrica in the past that has been not effective. She has not tried amitriptyline or duloxetine in the past and currently these medications will significantly interfere with her taking bupropion. Patient has been on pain medical management by Dr. Andre for the past 20 years and has been tapered off oxycodone 4 months ago. She emphasized that oxycodone has been the most effective for her chronic foot neuropathy. I have informed patient that our office does not offer opioid prescribing at this time. Patient denies any fever, chills, weight changes, abdominal or groin pain, dizziness, shortness of breaths, weakness, infection, swelling, rash, bowel or bladder incontinence or saddle anesthesia. [facility] Medical History Polycystic kidney disease Peripheral neuropathy Eczema Neuropathy Surgical History Kidney transplant recipient History of surgery on arm History of D&C History of nephrectomy History of tubal ligation History of kidney transplant Family History Father Polycystic kidney disease Mother No problems noted. Paternal Grandmother Polycystic kidney disease Social History Housing: House Alcohol intake: never Patient Tobacco Use Status: Never used Tobacco e-Cigarette/Vaping Use: Never Used Second Hand Smoke Exposure: No service: No Current occupational status: disabled Current occupational exposures/hazards: No Cognitive needs: No Hearing needs: No Vision needs: Yes Review of Systems Const All systems reviewed & are unremarkable except as noted in HPI and below Physical Exam Vital Signs: Last Vital Signs Pulse 87 05/07/23 09:26 BP 167/97 H 05/07/23 09:26 Pulse Ox 100 05/07/23 09:26 Oxygen Delivery Method Room Air 05/07/23 09:26 BMI result Body Mass Index 25.1 General: Appears afebrile. No acute distress. Alert and oriented. Mood and affect appropriate. Pleasant. Follows and participates in conversation appropriately. Respiratory effort is unlabored. No cough. Able to transition from sit to stand unassisted. Ambulates with bilaterally normal heel strike and toe. Extrem Other: No soft tissue swelling, redness or warmth. There is decreased sensation over the soles of the feet and toes, no breaks in the skin. General: Yes capillary refill normal, Yes no clubbing, cyanosis or edema and Yes no calf tenderness Office Procedures Topical Capsaicin Date 1:: 07/04/22 Date 2:: 10/03/22 Date 3:: 01/02/23 Date 4:: 05/07/23 Main area of pain on the body: Bilateral feet Laterality: Bilateral Location of left foot pain: Plantar, Dorsal and Distal Location of right foot pain: Plantar, Dorsal and Distal Quality of pain: Nagging, Gnawing and Numb-like Details:: Two patches, 560 cm2 were utilized per each foot. EMLA Cream (lidocaine 2.5% and prilocaine 2.5%) was not applied at home by patient prior to application of the patches. Patient elected to proceed procedure without EMLA cream. The patient tolerated the procedure well. Patient?s vitals signs remained stable throughout the procedure. Patient was able to complete the stipulated 30 minutes of the therapeutic application without any discomfort. Office Meds capsaicin-skin cleanser 8 % topical kit Performing Provider: NATE Junior Performing Location: [facility] Administered by: NATE Junior on 05/07/23 08:48 2 Dose Route Admin Location Dispensed Lot Number Expiration Date NDC Manager [employer] 4 ea topical [facility] 4 ea [id number] 02/12/25 68024-853-07 Find That File Results Reviewed Results Reviewed: 05/10/2022 Assessment & Plan Assessment & Plan (1) Peripheral neuropathy: Code(s): G62.9 - Polyneuropathy, unspecified (2) Chronic pain syndrome: Code(s): G89.4 - Chronic pain syndrome Plan Patient is status post 4th round of application of topical capsaicin 8% for neuropathy in bilateral feet. Patient tolerated the procedure without significant discomfort without application of EMLA cream prior to the procedure. She was discharged home in stable condition with discharge instructions. All questions and concerns were answered and the patient agreed with the plan. Greater than 35 minutes were spent in therapeutic application and in coordination of the care. Orders: Orders AMB Capsaicin Patch - Practice Supplied Today G62.9 - Polyneuropathy, unspecified, G89.4 - Chronic pain syndrome Coding Level of Care Code Est Pt Level 4 (86770) Diagnoses Peripheral neuropathy G62.9 Chronic pain syndrome G89.4
[2023-05-07 08:27] VITALS: BP 139/66; PULSE 76; O2SAT 99; BMI 25.1
[2023-05-07 09:05] VITALS: BP 142/85; PULSE 78; O2SAT 99
[2023-05-07 09:26] VITALS: BP 167/97; PULSE 87; O2SAT 100
== END 2023-05-07 09:27 | disposition home or self-care (01) ==
PROVIDERS: PCP Internal Medicine; Visit Provider Nurse Practitioner Family
DX: G62.9 Polyneuropathy, unspecified (principal); G89.4 Chronic pain syndrome
CPT/HCPCS: 17999; 99214

== ENCOUNTER → 2023-05-07 08:22 | Outpatient (BNVA) | payer OTHER, SELFPAY | PROVIDERS: PCP Internal Medicine; Visit Provider Nurse Practitioner Family | DX: G62.9 Polyneuropathy, unspecified (principal); G89.4 Chronic pain syndrome | CPT/HCPCS: 17999; 99212; J7336 ==

== ENCOUNTER 2023-05-25 08:55 | Outpatient (AMB) | payer OTHER, SELFPAY ==
--- NOTE | 2023-05-25 08:56 | MHC.OFFVIS ---
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 Ramirez. Patient reports ongoing 70-75% pain relief since procedure but continues to experiences numbness and tingling in her left lower extremity. Pain is rated at 1/10 at rest and increases to 4/10 with daily activities and walking. Denies any recent fever, cough, cold, infection, bladder or bowel dysfunction, saddle anesthesia or other significant changes in medical history since last office visit. 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 She attributes chronic neuropathy to renal failure. Patient denies diabetes with most recent A1C 5.3. Patient reports her back pain is currently axial that spreads across her back without radiation to her lower extremities. Her main concern today is bilateral foot neuropathic pain. She has been under the care of a neurologist in the past and had EMG testing done many years ago. Patient has no reports of EMG testing today. She reports her gait and balance has been affected lately with occasional falling. Her pain is described as constant throbbing, pounding, shooting, stabbing, sharp, cutting, pinching, searing, burning, numbness, crawling, tingling, stinging, sore, hurting, aching, heavy, tiring, exhausting, sickening, piercing, tight, squeezing, and cold. Patient reports she completed physical therapy 4 months ago with improvement in her sciatica symptoms. Denies back surgery or injections. She underwent a left bunionectomy by Dr. Landa at [facility] in 2018. Patient reports she has tried gabapentin and Lyrica in the past that has been not effective. She has not tried amitriptyline or duloxetine in the past and currently these medications will significantly interfere with her taking bupropion. Patient has been on pain medical management by Dr. Andre for the past 20 years and has been tapered off oxycodone 4 months ago. She emphasized that oxycodone has been the most effective for her chronic foot neuropathy. I have informed patient that our office does not offer opioid prescribing at this time. Patient denies any fever, chills, weight changes, abdominal or groin pain, dizziness, shortness of breaths, weakness, infection, swelling, rash, bowel or bladder incontinence or saddle anesthesia. [facility] Medical History Polycystic kidney disease Peripheral neuropathy Eczema Neuropathy Surgical History Kidney transplant recipient History of surgery on arm History of D&C History of nephrectomy History of tubal ligation History of kidney transplant Family History Father Polycystic kidney disease Mother No problems noted. Paternal Grandmother Polycystic kidney disease Social History Housing: House Alcohol intake: never Patient Tobacco Use Status: Never used Tobacco e-Cigarette/Vaping Use: Never Used Second Hand Smoke Exposure: No service: No Current occupational status: disabled Current occupational exposures/hazards: No Cognitive needs: No Hearing needs: No Vision needs: Yes Review of Systems Const All systems reviewed & are unremarkable except as noted in HPI and below Physical Exam Vital Signs: Last Vital Signs Pulse 85 05/25/23 08:59 BP 183/87 H 05/25/23 08:59 Pulse Ox 98 05/25/23 08:59 Oxygen Delivery Method Room Air 05/25/23 08:59 BMI result Body Mass Index 25.2 General: Appears afebrile. No acute distress. Alert and oriented. Mood and affect appropriate. Pleasant. Follows and participates in conversation appropriately. Respiratory effort is unlabored. No cough. Able to transition from sit to stand unassisted. Ambulates with bilaterally normal heel strike and toe. Results Reviewed Results Reviewed: XR LUMBOSACRAL SPINE WITH OBLIQUES 05/23/22 FINDINGS: There is 6 mm anterior subluxation of L5 with respect to S1. This is stable flexion-extension views. This is new from prior exams. Bone alignment is otherwise normal. There is an old L1 vertebral body compression fracture. There is degenerative disc disease at L5-S1. There is lower lumbar spine facet arthritis. No par defects seen. IMPRESSION: Old L1 compression fracture. 6 mm anterior subluxation of L5 with respect to S1 stable on flexion-extension views. Degenerative disc disease at L5-S1 and severe facet arthritis. 05/10/2022 MR LUMBAR SPINE WITHOUT CONTRAST 11/01/22 CLINICAL INFORMATION: Radiculopathy. Low back pain. COMPARISON: MRI dated 01/20/2011 and x-ray from 05/23/2022. TECHNIQUE: Multiplanar, multisequence imaging was obtained. FINDINGS: VERTEBRAL BODIES AND PARASPINAL STRUCTURES: There is a chronic mild superior endplate compression fracture deformity again visible at the L1 level. Mild scattered fatty marrow signal changes are stable. There is very mild anterior/superior endplate edema at the T12 level with osteophytic spurring. Multilevel endplate Schmorl's nodes visible. Moderate loss of disc height evident at the L5-S1 level where there is a grade 1 anterolisthesis and a 7 mm slippage. There is ojjz-lw-xozhpvdx endplate edema at L5-S1 and in the posterior elements on the right side, presumably stress-related. The paraspinal soft tissues are otherwise unremarkable. Right-sided pelvic kidney noted. The imaged bony pelvis is unremarkable. There is an incompletely visualized 3.6 cm lesion which may represent a cyst versus hemangioma at the hepatic dome on the nondiagnostic localizer acquisition. CONUS MEDULLARIS AND CAUDA EQUINE: The distal cord, conus tip, and cauda equina nerve roots are normal. SPINAL LEVELS: L1-L2: Tiny central disc protrusion. No central canal stenosis or foraminal narrowing. L2-L3: Mild disc degeneration and disc bulge without central canal stenosis or foraminal narrowing. Previous small posterior annular fissure is no longer seen. Very mild retrosubluxation. L3-L4: Mild superior endplate concavity lateralized to the right side with fatty marrow endplate changes at L3, new from the prior MR study. Minimal disc bulge and posterior annular fissure. No central canal stenosis or foraminal narrowing. L4-L5: Mild posterior subluxation and new broad-based disc bulge mildly impressing upon the ventral thecal sac with mild facet arthropathy. No central canal stenosis. Mild foraminal narrowing. L5-S1: Anterolisthesis and moderate loss of disc height with progressed severe facet arthropathy compared to prior imaging. Mild marrow edema in the posterior elements on the right side. Tbyr-rm-ajsmrluq endplate edema as well. Ytms-rr-rtpqcvht foraminal narrowing, worse on the left side, with facet spurring and bulging disc compressing the exiting left L5 nerve root. Moderate central canal stenosis with facet spurring mildly impressing upon the S1 nerve roots in the subarticular zones bilaterally. IMPRESSION: 1. Progressed spondylosis at the L5-S1 level with a grade 1 anterolisthesis and moderate degenerative disc disease. Marrow edema in the endplates and posterior elements on the right side, presumably stress-related in etiology. Moderate central canal stenosis with facet spurring mildly impressing upon the S1 nerve roots in the subarticular zones. Moderate left foraminal narrowing with facet spurring and bulging disc compressing the exiting left L5 nerve root. 2. Mild posterior subluxation and broad-based disc bulge at the L4-L5 level with mild foraminal narrowing. 3. Incompletely visualized 3.6 cm lesion at the hepatic dome which may represent a cyst versus hemangioma. This could be further evaluated with follow-up sonography. Assessment & Plan Assessment & Plan (1) Low back pain: Code(s): M54.50 - Low back pain, unspecified (2) Lumbar radiculopathy: Code(s): M54.16 - Radiculopathy, lumbar region (3) Chronic pain syndrome: Code(s): G89.4 - Chronic pain syndrome Plan Patient is one month status post left L5-S1 TFESI with ongoing 70-75% ongoing pain relief. She will continue to monitor her symptoms and notify our office when pain returns to baseline. We also reviewed interventional treatments for axial low back, vertebrogenic and left sided radicular back pain including BVN ablation/Intracept procedure. She has degenerative changes on the endplates with multilevel endplate Schmorl's nodes. Neuromodulation with SCS trial for back pain and peripheral neuropathy has been previously discussed as well. All questions and concerns have been answered to patient's satisfaction. Follow up as needed. Coding Level of Care Code Est Pt Level 3 (12044) Diagnoses Low back pain M54.50 Lumbar radiculopathy M54.16 Chronic pain syndrome G89.4
[2023-05-25 08:59] VITALS: BP 183/87; PULSE 85; O2SAT 98; BMI 25.2
== END 2023-05-25 10:11 | disposition home or self-care (01) ==
PROVIDERS: PCP Internal Medicine; Visit Provider Nurse Practitioner Family
DX: M54.50 Low back pain, unspecified (principal); M54.16 Radiculopathy, lumbar region; G89.4 Chronic pain syndrome
CPT/HCPCS: 99213

== ENCOUNTER → 2023-05-25 08:55 | Outpatient (BNVA) | payer OTHER, SELFPAY | PROVIDERS: PCP Internal Medicine; Visit Provider Nurse Practitioner Family | DX: M54.50 Low back pain, unspecified (principal); M54.16 Radiculopathy, lumbar region; G89.4 Chronic pain syndrome | CPT/HCPCS: 99212 ==

== ENCOUNTER 2023-08-10 10:12 | Outpatient (AMB) | payer OTHER, SELFPAY ==
--- NOTE | 2023-08-10 10:19 | A.OFFVIS_ITS ---
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 She is no longer interested in permanent implant and would like to proceed with Neurosurgical evaluation. Back pain is localized to lower spine and radiates into her left buttock and left lateral lower extremity and inner calf with numbness and tingling in her toes. No reported weakness in lower extremities. She responded well to transforaminal epidural steroid injections but would like to explore a more definitive and longer lasting treatments, including surgical option. Pain is worse with prolonged sitting, sleeping while changing positions, walking, bending or doing her ADLs and gardening. We will proceed with updating her MRI to follow up on previous MRI finding of L5-S1 level where there is moderate central canal stenosis, a grade 1 anterolisthesis and a 7 mm slippage and multilevel endplate Schmorl's nodes visible and moderate loss of disc height. Denies any recent fever, cough, cold, infection, bladder or bowel dysfunction, saddle anesthesia or other significant changes in medical history since last office visit. 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 She attributes chronic neuropathy to renal failure. Patient denies diabetes with most recent A1C 5.3. Patient reports her back pain is currently axial that spreads across her back without radiation to her lower extremities. Her main concern today is bilateral foot neuropathic pain. She has been under the care of a neurologist in the past and had EMG testing done many years ago. Patient has no reports of EMG testing today. She reports her gait and balance has been affected lately with occasional falling. Her pain is described as constant throbbing, pounding, shooting, stabbing, sharp, cutting, pinching, searing, burning, numbness, crawling, tingling, stinging, sore, hurting, aching, heavy, tiring, exhausting, sickening, piercing, tight, squeezing, and cold. Patient reports she completed physical therapy 4 months ago with improvement in her sciatica symptoms. Denies back surgery or injections. She underwent a left bunionectomy by Dr. Landa at [facility] in 2018. Patient reports she has tried gabapentin and Lyrica in the past that has been not effective. She has not tried amitriptyline or duloxetine in the past and currently these medications will significantly interfere with her taking bupropion. Patient has been on pain medical management by Dr. Andre for the past 20 years and has been tapered off oxycodone 4 months ago. She emphasized that oxycodone has been the most effective for her chronic foot neuropathy. I have informed patient that our office does not offer opioid prescribing at this time. Patient denies any fever, chills, weight changes, abdominal or groin pain, dizziness, shortness of breaths, weakness, infection, swelling, rash, bowel or bladder incontinence or saddle anesthesia. [facility] Medical History Polycystic kidney disease Peripheral neuropathy Eczema Neuropathy Surgical History Kidney transplant recipient History of surgery on arm History of D&C History of nephrectomy History of tubal ligation History of kidney transplant Family History Father Polycystic kidney disease Mother No problems noted. Paternal Grandmother Polycystic kidney disease Social History Housing: House Alcohol intake: never Patient Tobacco Use Status: Never used Tobacco e-Cigarette/Vaping Use: Never Used Second Hand Smoke Exposure: No service: No Current occupational status: disabled Current occupational exposures/hazards: No Cognitive needs: No Hearing needs: No Vision needs: Yes Review of Systems Const All systems reviewed & are unremarkable except as noted in HPI and below Physical Exam Vital Signs: Last Vital Signs Pulse 88 08/10/23 10:20 BP 143/80 H 08/10/23 10:20 Pulse Ox 99 08/10/23 10:20 Oxygen Delivery Method Room Air 08/10/23 10:20 BMI result Body Mass Index 25.3 General: Appears afebrile. Alert and oriented. Mood and affect appropriate. Follows and participates in conversation appropriately. Respiratory effort is unlabored. No cough. Able to transition from sit to stand unassisted. Ambulates with bilaterally normal heel strike and toe off but reports increased pain on left with heel or toe standing. General: Yes no CVA tenderness Back/Spine/Pelvis Back: no CVA tenderness Cervical Spine: cervical ROM normal and No Cervical spine tenderness Thoracic/Lumbar Spine: thoracic and lumbar spine normal to inspection, Lasegue's sign positive on the left and localized, pain with thoraco-lumbar ROM, paraspinal muscle tenderness on the left greater than right, No thoracic spinal tenderness, lumbar spinal tenderness (L4-S1) and straight leg raise positive left at 50 degrees Sacroiliac joints: on the right nontender and on the left (+Jules's) tender to palpation Extrem General: Yes capillary refill normal, Yes no clubbing, cyanosis or edema and Yes no calf tenderness Results Reviewed Results Reviewed: XR LUMBOSACRAL SPINE WITH OBLIQUES 05/23/22 FINDINGS: There is 6 mm anterior subluxation of L5 with respect to S1. This is stable flexion-extension views. This is new from prior exams. Bone alignment is otherwise normal. There is an old L1 vertebral body compression fracture. There is degenerative disc disease at L5-S1. There is lower lumbar spine facet arthritis. No par defects seen. IMPRESSION: Old L1 compression fracture. 6 mm anterior subluxation of L5 with respect to S1 stable on flexion-extension views. Degenerative disc disease at L5-S1 and severe facet arthritis. 05/10/2022 MR LUMBAR SPINE WITHOUT CONTRAST 11/01/22 CLINICAL INFORMATION: Radiculopathy. Low back pain. COMPARISON: MRI dated 01/20/2011 and x-ray from 05/23/2022. TECHNIQUE: Multiplanar, multisequence imaging was obtained. FINDINGS: VERTEBRAL BODIES AND PARASPINAL STRUCTURES: There is a chronic mild superior endplate compression fracture deformity again visible at the L1 level. Mild scattered fatty marrow signal changes are stable. There is very mild anterior/superior endplate edema at the T12 level with osteophytic spurring. Multilevel endplate Schmorl's nodes visible. Moderate loss of disc height evident at the L5-S1 level where there is a grade 1 anterolisthesis and a 7 mm slippage. There is crsm-pf-dhdtdldl endplate edema at L5-S1 and in the posterior elements on the right side, presumably stress-related. The paraspinal soft tissues are otherwise unremarkable. Right-sided pelvic kidney noted. The imaged bony pelvis is unremarkable. There is an incompletely visualized 3.6 cm lesion which may represent a cyst versus hemangioma at the hepatic dome on the nondiagnostic localizer acquisition. CONUS MEDULLARIS AND CAUDA EQUINE: The distal cord, conus tip, and cauda equina nerve roots are normal. SPINAL LEVELS: L1-L2: Tiny central disc protrusion. No central canal stenosis or foraminal narrowing. L2-L3: Mild disc degeneration and disc bulge without central canal stenosis or foraminal narrowing. Previous small posterior annular fissure is no longer seen. Very mild retrosubluxation. L3-L4: Mild superior endplate concavity lateralized to the right side with fatty marrow endplate changes at L3, new from the prior MR study. Minimal disc bulge and posterior annular fissure. No central canal stenosis or foraminal narrowing. L4-L5: Mild posterior subluxation and new broad-based disc bulge mildly impressing upon the ventral thecal sac with mild facet arthropathy. No central canal stenosis. Mild foraminal narrowing. L5-S1: Anterolisthesis and moderate loss of disc height with progressed severe facet arthropathy compared to prior imaging. Mild marrow edema in the posterior elements on the right side. Syei-xj-apvynmtj endplate edema as well. Tpku-dg-nzpzdshg foraminal narrowing, worse on the left side, with facet spurring and bulging disc compressing the exiting left L5 nerve root. Moderate central canal stenosis with facet spurring mildly impressing upon the S1 nerve roots in the subarticular zones bilaterally. IMPRESSION: 1. Progressed spondylosis at the L5-S1 level with a grade 1 anterolisthesis and moderate degenerative disc disease. Marrow edema in the endplates and posterior elements on the right side, presumably stress-related in etiology. Moderate central canal stenosis with facet spurring mildly impressing upon the S1 nerve roots in the subarticular zones. Moderate left foraminal narrowing with facet spurring and bulging disc compressing the exiting left L5 nerve root. 2. Mild posterior subluxation and broad-based disc bulge at the L4-L5 level with mild foraminal narrowing. 3. Incompletely visualized 3.6 cm lesion at the hepatic dome which may represent a cyst versus hemangioma. This could be further evaluated with follow-up sonography. Assessment & Plan Assessment & Plan (1) Low back pain: Code(s): M54.50 - Low back pain, unspecified Category: Medical (2) Lumbar radiculopathy: Code(s): M54.16 - Radiculopathy, lumbar region Category: Medical (3) Chronic pain syndrome: Code(s): G89.4 - Chronic pain syndrome Category: Medical (4) Vertebrogenic low back pain: Code(s): M54.51 - Vertebrogenic low back pain Category: Medical (5) Lumbar spinal stenosis: Code(s): M48.061 - Spinal stenosis, lumbar region without neurogenic claudication Category: Medical (6) Spondylolisthesis of lumbar region: Code(s): M43.16 - Spondylolisthesis, lumbar region Category: Medical Plan Patient returns today with worsening left sided radicular pain with daily activities, functioning and sleep. We reviewed interventional treatments for axial low back, vertebrogenic and left sided radicular back pain including BVN ablation/Intracept, SCS trial and implant and injections. Patient is no longer interested in implant or injections and would like to proceed with Neurosurgical evaluation for potential surgical option. Will update MRI to follow up on previous MRI finding of L5-S1 level where there is moderate central canal stenosis, a grade 1 anterolisthesis and a 7 mm slippage and multilevel endplate Schmorl's nodes visible and moderate loss of disc height. All questions and concerns have been answered to patient's satisfaction. Follow up for MRI results and sooner as needed. Orders: Orders 2 MR lumbar spine wo con Today M48.061 - Spinal stenosis, lumbar region without neurogenic claudication, M54.16 - Radiculopathy, lumbar region, M54.51 - Vertebrogenic low back pain Referrals 2 Neurosurgery Referral M43.16 - Spondylolisthesis, lumbar region, M48.061 - Spinal stenosis, lumbar region without neurogenic claudication, M54.16 - Radiculopathy, lumbar region Coding Level of Care Code Est Pt Level 4 (21939) Diagnoses Low back pain M54.50 Lumbar radiculopathy M54.16 Chronic pain syndrome G89.4 Vertebrogenic low back pain M54.51 Lumbar spinal stenosis M48.061 Spondylolisthesis of lumbar region M43.16
[2023-08-10 10:20] VITALS: BP 143/80; PULSE 88; O2SAT 99; BMI 25.3
== END 2023-08-10 10:33 | disposition home or self-care (01) ==
PROVIDERS: PCP Internal Medicine; Visit Provider Nurse Practitioner Family
DX: G89.4 Chronic pain syndrome (principal); M54.51 Vertebrogenic low back pain; M48.061 Spinal stenosis, lumbar region without neurogenic claudication; M43.16 Spondylolisthesis, lumbar region
CPT/HCPCS: 99214

== ENCOUNTER → 2023-08-10 10:12 | Outpatient (BNVA) | payer OTHER, SELFPAY | PROVIDERS: PCP Internal Medicine; Visit Provider Nurse Practitioner Family | DX: M54.50 Low back pain, unspecified (principal); M54.16 Radiculopathy, lumbar region; M54.51 Vertebrogenic low back pain; M43.16 Spondylolisthesis, lumbar region; M48.061 Spinal stenosis, lumbar region without neurogenic claudication; G89.4 Chronic pain syndrome | CPT/HCPCS: 99212 ==

== ENCOUNTER 2023-09-04 08:52 | Outpatient (AMB) | payer OTHER, SELFPAY ==
[2023-09-04 09:00] VITALS: BP 122/76; PULSE 90; O2SAT 97; BMI 25.4
--- NOTE | 2023-09-04 09:00 | MHC.PC.OV ---
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 Accompanied by: Self / Same As Patient Allergies soy [SOY] Allergy (Intermediate, Verified 09/04/23 09:01) FLUSHING,ITCHY lisinopril Allergy (Unknown, Verified 09/04/23 09:01) Cough buspirone Adverse Reaction (Intermediate, Verified 09/04/23 09:01) psychosis Medication List - Last Reconciled 09/05/23 by Ernst Andre MD belatacept 375 mg IV Q4W betamethasone valerate 0.1% 1 appl topical DAILY PRN 14 days bupropion HCl XL 150 mg PO DAILY bupropion HCl XL 300 mg PO DAILY clonazepam 1 mg PO BID cyclobenzaprine 10 mg PO TID PRN diclofenac sodium 1% (Voltaren Arthritis Pain) 4 grams topical QID PRN fluticasone propionate 50 mcg/actuation 1 spray intranasal DAILY lidocaine 5% 1 patch topical DAILY PRN loratadine (Allergy Relief (loratadine)) 10 mg PO DAILY PRN multivitamin 1 tab PO DAILY mycophenolate sodium 540 mg PO BID omeprazole 20 mg PO DAILY paroxetine HCl (Paxil) 20 mg PO DAILY rosuvastatin 5 mg PO DAILY Tobacco use date assessed: 09/04/23 Dental Screening Dental Screen Date: 09/04/23 Did you have a dental visit in the last 12 months?: Yes Did you have a dental problem in the last 6 months where you did not have access to dental care?: No Was dental information given to patient?: Patient has dentist HPI ANNUAL PE NEEDS PHQ9+THRIVE HPI Details renal transplant patient; depression and neuropathy; stable PFSH Medical History Polycystic kidney disease Peripheral neuropathy Eczema Neuropathy Surgical History Kidney transplant recipient History of surgery on arm History of D&C History of nephrectomy History of tubal ligation History of kidney transplant Family History Father Polycystic kidney disease Mother No problems noted. Paternal Grandmother Polycystic kidney disease Social History Housing: House Alcohol intake: never Patient Tobacco Use Status: Never used Tobacco e-Cigarette/Vaping Use: Never Used Second Hand Smoke Exposure: No service: No Current occupational status: disabled Current occupational exposures/hazards: No Cognitive needs: No Hearing needs: No Vision needs: Yes Questionnaire PHQ-9 Over the last 2 weeks, how often have you been bothered by any of the following problems? 1. Little interest or pleasure in doing things: not at all 2. Feeling down, depressed, or hopeless: not at all 3. Trouble falling or staying asleep, or sleeping too much: not at all 4. Feeling tired or having little energy: not at all 5. Poor appetite or overeating: not at all 6. Feeling bad about yourself - or that you are a failure or have let yourself or your family down: not at all 7. Trouble concentrating on things, such as reading the newspaper or watching television: not at all 8. Moving or speaking so slowly that other people could have noticed. Or the opposite - being so fidgety or restless that you have been moving around a lot more than usual: not at all 9. Thoughts that you would be better off or of hurting yourself in some way: not at all Total score: 0 Depression Screening Interpretation: Negative Depression Screening Done: Yes 61435 - PHQ-9 Billing: Yes Source: Developed by Drs. Tariq Rivera, Asuncion Leach, Adam Morse and colleagues, with an educational joaquín from [employer]. Thrive Questionnaire Date Thrive assessed: 09/04/23 I am a: Patient What is your living situation today?: I have a steady place to live Within the past 12 months, did the food you bought not last and you didn't have the money to get more?: Never true Within the past 12 months, did you worry whether your food would run out before you got money to buy more?: Never true Do you have trouble paying for medicines?: No Do you have trouble getting transportation to medical appointments?: No Do you have trouble paying your heating and electricity bill?: No Do you have trouble taking care of your child, family member or friend?: No Do you have trouble with day-to-day activities such as bathing, preparing meals, shopping, managing finances, etc.?: No Are you currently unemployed and looking for a job?: No Are you interested in more education?: No Please select the resources that you would like help with: None Currently or been in a relationship where the following occur: No concerns reported THRIVE Score: 0 AUDIT C Alcohol Use Questionnaire (AUDIT-C) 1. How often do you have a drink containing alcohol?: Never 3. How often do you have six or more drinks on one occasion?: Never Total Score: 0 Score Reviewed/Action Taken: No ANDREIA-7 AMB Questionnaire ANDREIA-7 Date ANDREIA - 7 assessed: 09/04/23 Feeling nervous, anxious, or on edge: 0 = Not at all Not being able to stop or control worryin = Not at all Worrying too much about different things: 0 = Not at all Trouble relaxin = Not at all Being so restless that it is hard to sit still: 0 = Not at all Becoming easily annoyed or irritable: 0 = Not at all Feeling afraid as if something awful might happen: 0 = Not at all Total ANDREIA-7 score (0-4 normal; 5-9 mild; 10-14 moderate; 15-21 severe): 0 Source: Developed by Drs. Tariq Rivera, Asuncion Leach, Adam Morse and colleagues, with an educational joaquín from [employer]. ANDREIA-7 Assessment Billing ANDREIA-7 Assessment Tool: ANDREIA-7 Assessment 73810 Review of Systems Const Denies chills, Denies fatigue, Denies headache(s) and Denies weight loss Eyes Denies change in vision, Denies diplopia and Denies eye pain ENT Denies vertigo, Denies dizziness, Denies headache(s) and Denies nasal discharge Card Denies chest pain, Denies rapid heart rate and Denies dyspnea on exertion Resp Denies chest congestion, Denies cough, Denies pain with cough and Denies dyspnea on exertion GI Denies abdominal pain, Denies hematochezia and Denies change in bowel habits Musc Denies myalgias, Denies arthralgias and Denies joint swelling Skin/Breast Denies lesions and Denies unusual bruising Neuro Denies vertigo, Denies dizziness, Denies headache(s) and Denies focal weakness Endo Denies fatigue Physical exam (Primary Care) Vital Signs: Last Vital Signs Pulse 90 09/04/23 09:00 BP 122/76 09/04/23 09:00 Pulse Ox 97 09/04/23 09:00 Oxygen Delivery Method Room Air 09/04/23 09:00 BMI result Body Mass Index 25.4 Tobacco/Smoking Status: Tobacco use Status Tobacco use date assessed 09/04/23 09/04/23 09:02 Patient Tobacco Use Status Never used Tobacco 09/04/23 09:02 e-Cigarette/Vaping Use Never Used 09/04/23 09:02 PHQ-9: PHQ-9 Score PHQ-9: Total score 0 09/04/23 09:22 Depression Screening Interpretation: Negative Thrive Assessment: Date of Thrive Assessment Date Thrive assessed 09/04/23 09/04/23 09:02 Currently or been in a relationship where the following occur: No concerns reported Const General: cooperative, healthy appearing and no acute distress Orientation/consciousness: oriented to person, oriented to place and oriented to time HENMT Head: Yes normal to inspection, Yes normocephalic and Yes atraumatic Mouth: Normal oral and palatal mucosa present and tongue normal Throat: Yes posterior oropharynx normal and Yes uvula midline Eyes General: appearance normal, both eyes and all related structures Neck Neck: Yes normal visual inspection, Yes full ROM and Yes no lymphadenopathy Thyroid: Thyroid normal Carotids: normal carotid upstroke Chest Chest palpation & inspection: normal inspection of the chest Resp Effort & Inspection: normal respiratory effort and able to speak in complete sentences Auscultation: clear to auscultation bilaterally Cardio Jugular venous distension: no JVD Palpation: normal PMI Rate: regular rate Rhythm: regular rhythm Heart sounds: S1 normal heart sound present and S2 normal heart sound present GI Inspection: Yes normal to inspection Palpation (GI): Soft to palpation and No hepatosplenomegaly present Auscultation: normal bowel sounds General: Yes no CVA tenderness Back/Spine/Pelvis Back: no CVA tenderness Skin General skin exam: no rashes or lesions noted Neuro General: oriented to person, oriented to place and oriented to time Extrem General: Yes normal to inspection and Yes full ROM Assessment and Plan Assessment & Plan (1) Physical exam: Code(s): Z00.00 - Encounter for general adult medical examination without abnormal findings Plan: stable; do labs (2) Neuropathy: Code(s): G62.9 - Polyneuropathy, unspecified Plan: same rx (3) Depression: Code(s): F32.9 - Major depressive disorder, single episode, unspecified Plan: same rx Orders: Orders Complete Blood Count Auto Diff Today Z13.0 - Encounter for screening for diseases of the blood and blood-forming organs and certain disorders involving the immune mechanism Lipid Panel Today Z13.220 - Encounter for screening for lipoid disorders Thyroid Stimulating Hormone Today Z13.29 - Encounter for screening for other suspected endocrine disorder Comprehensive [place]. Panel Fast Today Z13.9 - Encounter for screening, unspecified Medications: Refilled clonazepam 1 mg PO BID 30 tabs 5RF Coding Level of Care Code Est Pt Prev Care 40-64y(04680) Diagnoses Physical exam Z00.00 Neuropathy G62.9 Depression F32.9 Additional Codes ANDREIA-7 Assessment Billing - ANDREIA-7 Assessment Tool: ANDREIA-7 Assessment 77576 ([id number])
== END 2023-09-04 09:24 | disposition home or self-care (01) ==
PROVIDERS: PCP Internal Medicine; Visit Provider Internal Medicine
DX: Z00.00 Encounter for general adult medical examination without abnormal findings (principal); G62.9 Polyneuropathy, unspecified; F32.9 Major depressive disorder, single episode, unspecified
CPT/HCPCS: 99396

== ENCOUNTER 2023-09-07 08:50 | Outpatient (AMB) | payer OTHER, SELFPAY ==
--- NOTE | 2023-09-07 09:09 | HO.SPINEOV ---
Intake Visit Reasons: Lumbar radiculopathy Intake Note: Ms. Crump is here today c/o sciatica pain. 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 HPI: This 58-year-old female developed an acute pain radiating down her left leg to the top of her foot in April of 2021. Since then she is suffering from this sciatica. Pain is there on a daily basis. She has good and bad days. The pain is worse at night. She denies numbness or weakness. She can not walk for more than 1 block due to the pain. She tried physical therapy, 3 injections without success. She takes Tylenol and lidocaine patches to alleviate the pain. The right side is unaffected. PMH: Kidney transplant 2010 Medications: Belatacept, bupropion, clonazepam p.r.n., cyclobenzaprine, lidocaine patches, omeprazole, paroxetine, rosuvastatin Allergies: Buspirone Social history: . Nonsmoker Physical Exam: Pleasant female. Straight leg raise is negative. No neurological deficits for motor sensation or reflexes. Radiological Studies: MRI done at [facility] on 11/01/2022 shows a grade 1 L5-S1 spondylolisthesis and moderate bilateral L5 foraminal stenosis Impression/Plan: This patient is suffering from an L5 radiculopathy on the left that does not respond to conservative treatments. We discussed surgical intervention, being in L5 laminotomy/foraminotomy to decompress the L5 nerve root. She scheduled to undergo an updated MRI in September and we will review the results together and make a final decision. Thank you for allowing me to participate in your patients care. total time spent was 50 minutes in counseling ,coordination of plan, personal review of imaging, surgical decision making and subsequent plan Abad Salazar MD, PhD Spine Fellowship Trained Neurosurgeon Director, [facility] Coding Level of Care Code New Pt Level 4 (50195) Diagnoses Spondylolisthesis of lumbar region M43.16 Lumbar radiculopathy M54.16
== END 2023-09-07 09:33 | disposition home or self-care (01) ==
PROVIDERS: PCP Internal Medicine; Referring Provider Nurse Practitioner Family; Visit Provider Neurological Surgery
DX: M43.16 Spondylolisthesis, lumbar region (principal); M54.16 Radiculopathy, lumbar region
CPT/HCPCS: 99204

== ENCOUNTER → 2023-09-07 08:50 | Outpatient (BNVA) | payer OTHER, SELFPAY | PROVIDERS: PCP Internal Medicine; Visit Provider Neurological Surgery | DX: M54.16 Radiculopathy, lumbar region (principal); M43.16 Spondylolisthesis, lumbar region | CPT/HCPCS: 99202 ==

== ENCOUNTER 2023-09-19 19:29 | Outpatient (REF) | payer OTHER, SELFPAY ==
--- NOTE | ~2023-09-19 | MR_ITS ---
EXAMINATION: MR LUMBAR SPINE WITHOUT CONTRAST CLINICAL INFORMATION: Lumbar radiculopathy. COMPARISON: MRI lumbar spine 11/01/2022. TECHNIQUE: MRI of the lumbar spine was obtained using routine sequences without the administration of intravenous contrast. FINDINGS: This examination assumes the presence of 5 lumbar type vertebral bodies. For the purposes of this examination, the L5-S1 intervertebral disc space is visualized on axial series 5, image 28. The normal lumbar lordosis is preserved. Grade 1 anterolisthesis of L5-S1 with trace retrolisthesis of L1-L2, L2-L3, L4-L5. Trace anterolisthesis of T12-L1. Stable chronic L1 compression deformity. Multilevel Schmorl's nodes are noted. Multilevel degenerative endplate changes with faint endplate edema at T11-12 and L5-S1. Edema in the right posterior elements of L5-S1 are likely on the basis of degenerative change/stress reaction. The conus medullaris and cauda equina nerve roots are unremarkable; the conus terminates at the level of L1-L2. Mild degenerative changes of the partially visualized lower thoracic spine without significant spinal canal or neural foraminal stenosis. L1-L2: Trace central disc protrusion. The spinal canal and neural foramen are patent. L2-L3: Trace disc bulge and osteophytic ridging without significant spinal canal or neural foraminal stenosis. L3-L4: Disc bulge and osteophytic ridging with mild facet arthropathy. The spinal canal and neural foramen are patent. L4-L5: Disc bulge and osteophytic ridging with new right subarticular/proximal foraminal disc protrusion. Asymmetric narrowing of the right lateral recess with abutment of the descending right L5 nerve root. Mild spinal canal stenosis. Stable mild narrowing of the neural foramen. L5-S1: Severe facet arthropathy. Grade 1 anterolisthesis with uncovering of the intervertebral disc space. There is moderate spinal canal stenosis with narrowing of the lateral recesses impinging upon the descending S1 nerve roots that appears comparable to prior. Stable moderate left and [id number] right neural foraminal stenosis with compression of the exiting left L5 nerve root. Numerous T2 hyperintense foci throughout the liver on localizer images which are incompletely characterized. The largest of these measures at least 3.6 cm. Right pelvic kidney. The left kidney is not visualized. MR/MR lumbar spine wo con IMPRESSION: Redemonstrated grade 1 anterolisthesis of L5-S1 with moderate spinal canal stenosis and narrowing of the lateral recesses impinging on the descending S1 nerve roots. Moderate left neural foraminal stenosis at L5-S1 with compression of the exiting L5 nerve root appears comparable to prior. New small right subarticular disc protrusion L4-L5 with asymmetric narrowing of the right lateral recess and abutment of the descending right L5 nerve root. Redemonstrated numerous T2 hyperintense foci throughout the liver which are indeterminate. Correlation with liver ultrasound is again recommended.
== END 2023-09-19 19:30 | disposition home or self-care (01) ==
LOC: HO.MRI 19:29
PROVIDERS: PCP Internal Medicine; Visit Provider Nurse Practitioner Family
DX: M54.16 Radiculopathy, lumbar region (principal); M54.51 Vertebrogenic low back pain; M48.061 Spinal stenosis, lumbar region without neurogenic claudication
CPT/HCPCS: 72148

== ENCOUNTER 2023-09-28 09:20 | Outpatient (AMB) | payer OTHER, SELFPAY ==
--- NOTE | 2023-09-28 09:26 | A.OFFVIS_ITS ---
Vital Signs 3 09/28/23 09:27 Height 5 ft 7 in Weight 164 lb BMI 25.7 BP 140/64 H Blood Pressure Location Lt brachial Position Sitting Pulse 82 Pulse Source Pulse Oximeter Pulse Oximetry (%) 98 Oxygen Delivery Method Room Air Intake Visit Reasons: MRI follow up Intake Note: Pain today 04/21 Bead Flipper Required: No Accompanied by: Self / Same As Patient Allergies soy [SOY] Allergy (Intermediate, Verified 09/28/23 09:27) FLUSHING,ITCHY lisinopril Allergy (Unknown, Verified 09/28/23 09:27) Cough buspirone Adverse Reaction (Intermediate, Verified 09/28/23 09:27) psychosis HPI Comments Details: Patient presents today for follow-up to review recent lumbar spine MRI results. Denies any recent cough, cold, infection, fever, any significant changes in her medical history, medications or recent hospitalizations. PRIOR: Patient presents today to discuss treatments for left sided radicular back pain with spinal-stenosis related pain. She is no longer interested in permanent implant and would like to proceed with Neurosurgical evaluation. Back pain is localized to lower spine and radiates into her left buttock and left lateral lower extremity and inner calf with numbness and tingling in her toes. No reported weakness in lower extremities. She responded well to transforaminal epidural steroid injections but would like to explore a more definitive and longer lasting treatments, including surgical option. Pain is worse with prolonged sitting, sleeping while changing positions, walking, bending or doing her ADLs and gardening. We will proceed with updating her MRI to follow up on previous MRI finding of L5-S1 level where there is moderate central canal stenosis, a grade 1 anterolisthesis and a 7 mm slippage and multilevel endplate Schmorl's nodes visible and moderate loss of disc height. Denies any recent fever, cough, cold, infection, bladder or bowel dysfunction, saddle anesthesia or other significant changes in medical history since last office visit. 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 She attributes chronic neuropathy to renal failure. Patient denies diabetes with most recent A1C 5.3. Patient reports her back pain is currently axial that spreads across her back without radiation to her lower extremities. Her main concern today is bilateral foot neuropathic pain. She has been under the care of a neurologist in the past and had EMG testing done many years ago. Patient has no reports of EMG testing today. She reports her gait and balance has been affected lately with occasional falling. Her pain is described as constant throbbing, pounding, shooting, stabbing, sharp, cutting, pinching, searing, burning, numbness, crawling, tingling, stinging, sore, hurting, aching, heavy, tiring, exhausting, sickening, piercing, tight, squeezing, and cold. Patient reports she completed physical therapy 4 months ago with improvement in her sciatica symptoms. Denies back surgery or injections. She underwent a left bunionectomy by Dr. Landa at [facility] in 2018. Patient reports she has tried gabapentin and Lyrica in the past that has been not effective. She has not tried amitriptyline or duloxetine in the past and currently these medications will significantly interfere with her taking bupropion. Patient has been on pain medical management by Dr. Andre for the past 20 years and has been tapered off oxycodone 4 months ago. She emphasized that oxycodone has been the most effective for her chronic foot neuropathy. I have informed patient that our office does not offer opioid prescribing at this time. Patient denies any fever, chills, weight changes, abdominal or groin pain, dizziness, shortness of breaths, weakness, infection, swelling, rash, bowel or bladder incontinence or saddle anesthesia. [facility] Medical History Polycystic kidney disease Peripheral neuropathy Eczema Neuropathy Surgical History Kidney transplant recipient History of surgery on arm History of D&C History of nephrectomy History of tubal ligation History of kidney transplant Family History Father Polycystic kidney disease Mother No problems noted. Paternal Grandmother Polycystic kidney disease Social History Housing: House Alcohol intake: never Patient Tobacco Use Status: Never used Tobacco e-Cigarette/Vaping Use: Never Used Second Hand Smoke Exposure: No service: No Current occupational status: disabled Current occupational exposures/hazards: No Cognitive needs: No Hearing needs: No Vision needs: Yes Review of Systems Const All systems reviewed & are unremarkable except as noted in HPI and below Physical Exam Vital Signs: Last Vital Signs Pulse 82 09/28/23 09:27 BP 140/64 H 09/28/23 09:27 Pulse Ox 98 09/28/23 09:27 Oxygen Delivery Method Room Air 09/28/23 09:27 BMI result Body Mass Index 25.7 General: Appears afebrile. Alert and oriented. Mood and affect appropriate. Follows and participates in conversation appropriately. Respiratory effort is unlabored. No cough. Able to transition from sit to stand unassisted. Ambulates with bilaterally normal heel strike and toe off but reports increased pain on left with heel or toe standing. General: Yes no CVA tenderness Back/Spine/Pelvis Back: no CVA tenderness Cervical Spine: cervical ROM normal and No Cervical spine tenderness Thoracic/Lumbar Spine: thoracic and lumbar spine normal to inspection, Lasegue's sign positive on the left and localized, pain with thoraco-lumbar ROM, paraspinal muscle tenderness on the left greater than right, No thoracic spinal tenderness, lumbar spinal tenderness (L4-S1) and straight leg raise positive left at 50 degrees Sacroiliac joints: on the right nontender and on the left (+Jules's, +Stinchfield) tender to palpation Results Reviewed Results Reviewed: XR LUMBOSACRAL SPINE WITH OBLIQUES 05/23/22 FINDINGS: There is 6 mm anterior subluxation of L5 with respect to S1. This is stable flexion-extension views. This is new from prior exams. Bone alignment is otherwise normal. There is an old L1 vertebral body compression fracture. There is degenerative disc disease at L5-S1. There is lower lumbar spine facet arthritis. No par defects seen. IMPRESSION: Old L1 compression fracture. 6 mm anterior subluxation of L5 with respect to S1 stable on flexion-extension views. Degenerative disc disease at L5-S1 and severe facet arthritis. 05/10/2022 MR LUMBAR SPINE WITHOUT CONTRAST 11/01/22 CLINICAL INFORMATION: Radiculopathy. Low back pain. COMPARISON: MRI dated 01/20/2011 and x-ray from 05/23/2022. TECHNIQUE: Multiplanar, multisequence imaging was obtained. FINDINGS: VERTEBRAL BODIES AND PARASPINAL STRUCTURES: There is a chronic mild superior endplate compression fracture deformity again visible at the L1 level. Mild scattered fatty marrow signal changes are stable. There is very mild anterior/superior endplate edema at the T12 level with osteophytic spurring. Multilevel endplate Schmorl's nodes visible. Moderate loss of disc height evident at the L5-S1 level where there is a grade 1 anterolisthesis and a 7 mm slippage. There is kggi-wt-kmjlzpvq endplate edema at L5-S1 and in the posterior elements on the right side, presumably stress-related. The paraspinal soft tissues are otherwise unremarkable. Right-sided pelvic kidney noted. The imaged bony pelvis is unremarkable. There is an incompletely visualized 3.6 cm lesion which may represent a cyst versus hemangioma at the hepatic dome on the nondiagnostic localizer acquisition. CONUS MEDULLARIS AND CAUDA EQUINE: The distal cord, conus tip, and cauda equina nerve roots are normal. SPINAL LEVELS: L1-L2: Tiny central disc protrusion. No central canal stenosis or foraminal narrowing. L2-L3: Mild disc degeneration and disc bulge without central canal stenosis or foraminal narrowing. Previous small posterior annular fissure is no longer seen. Very mild retrosubluxation. L3-L4: Mild superior endplate concavity lateralized to the right side with fatty marrow endplate changes at L3, new from the prior MR study. Minimal disc bulge and posterior annular fissure. No central canal stenosis or foraminal narrowing. L4-L5: Mild posterior subluxation and new broad-based disc bulge mildly impressing upon the ventral thecal sac with mild facet arthropathy. No central canal stenosis. Mild foraminal narrowing. L5-S1: Anterolisthesis and moderate loss of disc height with progressed severe facet arthropathy compared to prior imaging. Mild marrow edema in the posterior elements on the right side. Ctcq-gp-tnjrrexj endplate edema as well. Emsa-zj-bzvotruv foraminal narrowing, worse on the left side, with facet spurring and bulging disc compressing the exiting left L5 nerve root. Moderate central canal stenosis with facet spurring mildly impressing upon the S1 nerve roots in the subarticular zones bilaterally. IMPRESSION: 1. Progressed spondylosis at the L5-S1 level with a grade 1 anterolisthesis and moderate degenerative disc disease. Marrow edema in the endplates and posterior elements on the right side, presumably stress-related in etiology. Moderate central canal stenosis with facet spurring mildly impressing upon the S1 nerve roots in the subarticular zones. Moderate left foraminal narrowing with facet spurring and bulging disc compressing the exiting left L5 nerve root. 2. Mild posterior subluxation and broad-based disc bulge at the L4-L5 level with mild foraminal narrowing. 3. Incompletely visualized 3.6 cm lesion at the hepatic dome which may represent a cyst versus hemangioma. This could be further evaluated with follow-up sonography. MR LUMBAR SPINE WITHOUT CONTRAST CLINICAL INFORMATION: Lumbar radiculopathy. COMPARISON: MRI lumbar spine 11/01/2022. TECHNIQUE: MRI of the lumbar spine was obtained using routine sequences without the administration of intravenous contrast. FINDINGS: This examination assumes the presence of 5 lumbar type vertebral bodies. For the purposes of this examination, the L5-S1 intervertebral disc space is visualized on axial series 5, image 28. The normal lumbar lordosis is preserved. Grade 1 anterolisthesis of L5-S1 with trace retrolisthesis of L1-L2, L2-L3, L4-L5. Trace anterolisthesis of T12-L1. Stable chronic L1 compression deformity. Multilevel Schmorl's nodes are noted. Multilevel degenerative endplate changes with faint endplate edema at T11-12 and L5-S1. Edema in the right posterior elements of L5-S1 are likely on the basis of degenerative change/stress reaction. The conus medullaris and cauda equina nerve roots are unremarkable; the conus terminates at the level of L1-L2. Mild degenerative changes of the partially visualized lower thoracic spine without significant spinal canal or neural foraminal stenosis. L1-L2: Trace central disc protrusion. The spinal canal and neural foramen are patent. L2-L3: Trace disc bulge and osteophytic ridging without significant spinal canal or neural foraminal stenosis. L3-L4: Disc bulge and osteophytic ridging with mild facet arthropathy. The spinal canal and neural foramen are patent. L4-L5: Disc bulge and osteophytic ridging with new right subarticular/proximal foraminal disc protrusion. Asymmetric narrowing of the right lateral recess with abutment of the descending right L5 nerve root. Mild spinal canal stenosis. Stable mild narrowing of the neural foramen. L5-S1: Severe facet arthropathy. Grade 1 anterolisthesis with uncovering of the intervertebral disc space. There is moderate spinal canal stenosis with narrowing of the lateral recesses impinging upon the descending S1 nerve roots that appears comparable to prior. Stable moderate left and pubt-cb-txpurccr right neural foraminal stenosis with compression of the exiting left L5 nerve root. Numerous T2 hyperintense foci throughout the liver on localizer images which are incompletely characterized. The largest of these measures at least 3.6 cm. Right pelvic kidney. The left kidney is not visualized. MR/MR lumbar spine wo con IMPRESSION: Redemonstrated grade 1 anterolisthesis of L5-S1 with moderate spinal canal stenosis and narrowing of the lateral recesses impinging on the descending S1 nerve roots. Moderate left neural foraminal stenosis at L5-S1 with compression of the exiting L5 nerve root appears comparable to prior. New small right subarticular disc protrusion L4-L5 with asymmetric narrowing of the right lateral recess and abutment of the descending right L5 nerve root. Redemonstrated numerous T2 hyperintense foci throughout the liver which are indeterminate. Correlation with liver ultrasound is again recommended. Assessment & Plan Assessment & Plan (1) Lumbar radiculopathy: Code(s): M54.16 - Radiculopathy, lumbar region Category: Medical (2) Vertebrogenic low back pain: Code(s): M54.51 - Vertebrogenic low back pain Category: Medical (3) Lumbar spinal stenosis: Code(s): M48.061 - Spinal stenosis, lumbar region without neurogenic claudication Category: Medical (4) Spondylolisthesis of lumbar region: Code(s): M43.16 - Spondylolisthesis, lumbar region Category: Medical (5) Low back pain: Code(s): M54.50 - Low back pain, unspecified Category: Medical (6) Lumbar spondylosis: Code(s): M47.816 - Spondylosis without myelopathy or radiculopathy, lumbar region Category: Medical Plan Lumbar spine MRI results reviewed with patient today and are noted above. Patient is scheduled to undergo neurosurgical evaluation with Dr. Salazar on 10/10/2023. She continues to endorse significant low back pain with ADLs, prolonged standing or walking or bending. Reports disrupted sleep due to pain. In meantime I will provide short script of tramadol for moderate to severe pain only. Side effects and precautions were discussed with patient. Narcan is provided with opioid prescription. All questions and concerns have been answered and patient agreed with the plan. Follow-up after neurosurgical evaluation and sooner as needed. Medications: New 2 naloxone 4 mg/actuation (Narcan) spray 1 dose into ONE nostril; alternate nostrils w each dose until help arrives 4 mg intranasal Q2M PRN 2 ea 0RF opioid overdose tramadol 50 mg PO Q8H PRN 21 tabs 0RF pain (scale score 7-10) 7 days M43.16 - Spondylolisthesis, lumbar region, M48.061 - Spinal stenosis, lumbar region without neurogenic claudication, M54.16 - Radiculopathy, lumbar region, M54.51 - Vertebrogenic low back pain Discontinued 2 cyclobenzaprine Discontinued Reason: Patient Completed Course 10 mg PO TID PRN 30 tabs 2RF muscle spasm Coding Level of Care Code Est Pt Level 4 (34762) Diagnoses Lumbar radiculopathy M54.16 Vertebrogenic low back pain M54.51 Lumbar spinal stenosis M48.061 Spondylolisthesis of lumbar region M43.16 Low back pain M54.50 Lumbar spondylosis M47.816
[2023-09-28 09:27] VITALS: BP 140/64; PULSE 82; O2SAT 98; BMI 25.7
== END 2023-09-28 09:52 | disposition home or self-care (01) ==
PROVIDERS: PCP Internal Medicine; Visit Provider Nurse Practitioner Family
DX: M54.16 Radiculopathy, lumbar region (principal); M54.51 Vertebrogenic low back pain; M48.061 Spinal stenosis, lumbar region without neurogenic claudication; M43.16 Spondylolisthesis, lumbar region; M54.50 Low back pain, unspecified; M47.816 Spondylosis without myelopathy or radiculopathy, lumbar region
CPT/HCPCS: 99214

== ENCOUNTER → 2023-09-28 09:20 | Outpatient (BNVA) | payer OTHER, SELFPAY | PROVIDERS: PCP Internal Medicine; Visit Provider Nurse Practitioner Family | DX: M54.51 Vertebrogenic low back pain (principal); M48.061 Spinal stenosis, lumbar region without neurogenic claudication; M43.16 Spondylolisthesis, lumbar region; M47.26 Other spondylosis with radiculopathy, lumbar region | CPT/HCPCS: 99212 ==

== ENCOUNTER 2023-10-10 14:31 | Outpatient (AMB) | payer OTHER, SELFPAY ==
--- NOTE | 2023-10-10 14:33 | HO.SPINEOV ---
Intake Visit Reasons: MRI f/up Intake Note: Ms. Crump is here to F/u on the results to her MRI Registered Dietetic Technician Required: No Allergies soy [SOY] Allergy (Intermediate, Verified 09/28/23 09:27) FLUSHING,ITCHY lisinopril Allergy (Unknown, Verified 09/28/23 09:27) Cough buspirone Adverse Reaction (Intermediate, Verified 09/28/23 09:27) psychosis Assessment & Plan Assessment & Plan (1) Neuroforaminal stenosis of lumbar spine: Code(s): M48.061 - Spinal stenosis, lumbar region without neurogenic claudication Category: Medical (2) Spondylolisthesis of lumbar region: Code(s): M43.16 - Spondylolisthesis, lumbar region Category: Medical (3) Lumbar radiculopathy: Code(s): M54.16 - Radiculopathy, lumbar region Category: Medical Plan Dear colleague, On 10/10/2023, I saw for follow-up Veronica Crump to discuss the MRI results and possible surgery. As you know she is suffering from a left L5 radiculopathy due to left L5 neuroforaminal stenosis caused by a L5-S1 spondylolisthesis. Lumbar x-rays show no signs of instability. The patient denies significant back pain and therefore I offered her a left L5 laminotomy/foraminotomy to decompress the L5 nerve root. I described the procedure, possible complications and expected postoperative course. She will be scheduled for November 29, 2023. I spent 21 minutes in this consult. Thank you for the referral. Do not hesitate to call me with any questions or concerns. Abad Salazar MD, PhD Spine Fellowship Trained Neurosurgeon Director, [facility] Coding Level of Care Code Est Pt Level 3 (74473) Diagnoses Neuroforaminal stenosis of lumbar spine M48.061 Spondylolisthesis of lumbar region M43.16 Lumbar radiculopathy M54.16
== END 2023-10-10 15:32 | disposition home or self-care (01) ==
PROVIDERS: PCP Internal Medicine; Visit Provider Neurological Surgery
DX: M48.061 Spinal stenosis, lumbar region without neurogenic claudication (principal); M43.16 Spondylolisthesis, lumbar region; M54.16 Radiculopathy, lumbar region
CPT/HCPCS: 99213

== ENCOUNTER → 2023-10-10 14:31 | Outpatient (BNVA) | payer OTHER, SELFPAY | PROVIDERS: PCP Internal Medicine; Visit Provider Neurological Surgery | DX: M48.061 Spinal stenosis, lumbar region without neurogenic claudication (principal); M43.16 Spondylolisthesis, lumbar region; M54.16 Radiculopathy, lumbar region | CPT/HCPCS: 99212 ==

== ENCOUNTER 2023-11-22 08:05 | Day surgery (SDC) | payer OTHER, SELFPAY ==
--- NOTE | 2023-11-16 | ECG_ITS ---
Test Reason : PRE OP Blood Pressure : / mmHG Vent. Rate : 077 BPM Atrial Rate : 077 BPM P-R Int : 148 ms QRS Dur : 092 ms QT Int : 406 ms P-R-T Axes : 066 004 072 degrees QTc Int : 459 ms Normal sinus rhythm Minimal voltage criteria for LVH, may be normal variant ( Walt product ) Borderline ECG When compared with ECG of 01-OCT-2004 17:13, Vent. rate has decreased BY 61 BPM Referred By: Sophia Rivera Electronically Signed By:ES PINTO
[2023-11-16 09:59] VITALS: BP 158/78; PULSE 87; RESP 16; O2SAT 98; BMI 26.3
[2023-11-22] VITALS (16 sets, daily range): BP systolic 134–179; BP diastolic 65–91; PULSE 74–85; RESP 12–20; TEMP 36.5–37.1; O2SAT 96–100; BMI 25.2
[2023-11-22] MEDS: Lactated Ringers 1,000 ML 100 ML IVCONT (08:45)
[2023-11-22] MEDS: Gabapentin 300 MG CAPSULE PO (08:48)
[2023-11-22] MEDS: methocarbamoL 750 MG TABLET PO (08:48)
--- NOTE | 2023-11-22 09:12 | P.HPSUR_ITS ---
Pre-Procedural Eval Section A - 24 Hr Update-Section A only Date of Service: 11/22/23 The patient is an INPATIENT: No Section B - Complete if H&P > 30 days Chief Complaint: Spondylolisthesis,radiculopathy,spinal stenosis Allergies: Allergies Allergy/AdvReac Type Severity Reaction Status Date / Time clonazepam Allergy Intermediate memory Verified 11/22/23 08:15 lapses lisinopril Allergy Intermediate Cough Verified 11/22/23 08:15 soy [SOY] Allergy Intermediate FLUSHING,IT Verified 11/22/23 08:15 ELIE buspirone AdvReac Severe psychosis Verified 11/22/23 08:15 Review of Systems Sugical H&P ROS: Negative: Constitution, Cardiovascular, Respiratory, Neurological, Psychiatric, Hem-Onc, Allergic/Immunologic, Gastrointestinal, Genitourinary, Musculoskeletal, Integumentary, Endocrine and Eyes/Ears/Nose/Throat Exam Surgical H&P Exam: Normal: HEENT, Normal: Heart, Normal: Lungs, Normal: Extr emities, Normal: Abdomen, Normal: Skin and Normal: Neurological (Awake, alert) Plan Diagnosis/Plan: Unchanged I have reviewed the history and physical and performed a pertinent physical examination on my patient. No changes have occurred unless specified. Left L5 laminotomy/foraminotomy Time Spent With Patient Time: Total time managing care of this patient today ___5_ minutes.
--- NOTE | 2023-11-22 09:40 | HO.ANESPROP2 ---
Documented by User: Sophia Rivera NP 11/20/23 13:51 HPI - Anesthesia Eval Consult details Narrative: 58yo F for Left L5 Laminotomy/Foraminotomy, 11/29/23 No recent illness No CP/SOB with yardwork/walking. Only limited by pain s/p renal transplant 2010. AV fistula RUE remains NO IV/BP on Right Follow[facility]. Last office visit 10/2023. Stable with creat within baseline range (1.1-1.3). No adjustment to therapy GERD: ppi controls PMFSH Active Problems Active Problems: All Active Problems Neuroforaminal stenosis of lumbar spine (Acute) Spondylolisthesis of lumbar region (Acute) Lumbar spinal stenosis (Acute) Low back pain (Acute) Vertebrogenic low back pain (Acute) Hepatic lesion (Acute) Lumbar radiculopathy (Acute) Seasonal allergies (Acute) Physical exam (Acute) Chronic pain syndrome (Acute) Lumbar spondylosis (Acute) History of immunosuppressive therapy (Acute) Chronic pain of both feet (Acute) Hypertension (Acute) Right-sided headache (Acute) Back pain (Acute) Environmental allergies (Acute) Left sided sciatica (Acute) Left sciatic notch pain (Acute) Concern about infectious disease without diagnosis (Acute) Flu-like symptoms (Acute) Physical exam (Acute) Depression (Acute) Confusion (Acute) Polycystic kidney disease (Acute) Peripheral neuropathy (Acute) Kidney transplant recipient (Acute) Eczema (Acute) Neuropathy (Acute) Past Medical History Medical History (Updated 11/16/23 @ 10:23 by Scarlett De La Rosa RN) Depression Hx MRSA infection (~2009) Low back pain GERD (gastroesophageal reflux disease) AV fistula Seasonal allergies Polycystic kidney disease Peripheral neuropathy Eczema Neuropathy Family History Family History Father Polycystic kidney disease Mother No problems noted. Paternal Grandmother Polycystic kidney disease Family history of problems with anesthesia: No Surgical History Surgical History Hx of wisdom tooth extraction Hx of colonoscopy Kidney transplant recipient History of surgery on arm History of D&C History of nephrectomy (~2008) History of tubal ligation History of kidney transplant (~2010) History of Problems with Anesthesia: No Social History Social History (Updated 11/16/23 @ 10:14 by Scarlett De La Rosa RN) Housing: House Housing Other:: trailer Are you a primary child care center assistant director to a significant other at home: No Do you presently have visiting nurse or other home services: No Alcohol intake: never Patient Tobacco Use Status: Never used Tobacco e-Cigarette/Vaping Use: Never Used Second Hand Smoke Exposure: No Use of substances other than those prescribed or required for medical reasons: No Have you been hit, kicked, punched, or otherwise hurt by someone within the past year? If so, by whom?: No Are you DNR?: No Advance Directives: No Advance Directives Information Provided: Yes Advance Directives on File: No Recently lost weight without trying: No Nutrition Risks: No Nutritional Risk Poor oral hygiene: No service: No Current occupational status: disabled Current occupational exposures/hazards: No Cognitive needs: No Hearing needs: No Vision needs: Yes Meds Allergies Allergy/AdvReac Type Severity Reaction Status Date / Time clonazepam Allergy Intermediate memory Verified 11/22/23 08:15 lapses lisinopril Allergy Intermediate Cough Verified 11/22/23 08:15 soy [SOY] Allergy Intermediate FLUSHING,IT Verified 11/22/23 08:15 ELIE buspirone AdvReac Severe psychosis Verified 11/22/23 08:15 Home Medications ?Medication ?Instructions ?Recorded ?Confirmed ?Last Taken ?Type belatacept 250 mg intravenous 375 mg IV Q4W 12/26/19 11/22/23 Unknown History solution mycophenolate sodium 180 mg 540 mg PO BID 12/26/19 11/22/23 11/22/23 History tablet,delayed release multivitamin 1 tab PO DAILY 02/03/20 11/22/23 Unknown History omeprazole 20 mg capsule,delayed 20 mg PO DAILY 03/03/22 11/22/23 11/22/23 History release fluticasone propionate 50 1 spray intranasal DAILY PRN 11/16/23 11/22/23 Unknown History mcg/actuation nasal Allergy Symptoms spray,suspension Exam Height,Weight and Vital Signs: Height 5 ft 7 in Weight 76.1 kg Last Vital Signs Pulse 87 11/16/23 09:59 Resp 16 11/16/23 09:59 BP 158/78 H 11/16/23 09:59 Pulse Ox 98 11/16/23 09:59 O2 Del Method Room Air 11/16/23 09:59 Pertinent Lab Results Pertinent Lab Results: BMP and CBC 09/2023 from outside facility Bun/Creat 29/.24 Narrative Narrative: EKG 11/2023 Vent. Rate : 077 BPM Atrial Rate : 077 BPM P-R Int : 148 ms QRS Dur : 092 ms QT Int : 406 ms P-R-T Axes : 066 004 072 degrees QTc Int : 459 ms Normal sinus rhythm Minimal voltage criteria for LVH, may be normal variant ( Walt product ) Borderline ECG When compared with ECG of 01-OCT-2004 17:13, Vent. rate has decreased BY 61 BPM Airway Mallampati Class: II TM Dist: >3cm Neck ROM: Full Loose/Missing/Broken Teeth: Yes (molars missing) Heart: RRR (fistula audible) Lungs: CTAB Assessment and Plan Assessment Anesthesia Assessment: Anesthesia Plan Discussed and PAT Visit Final Anesthetic Review Family History of Problems with Anesthesia: No History of Problems with Anesthesia: No Documented by User: Phoebe Rowell DO 11/22/23 09:44 [facility] Past Medical History Medical History (Updated 11/16/23 @ 10:23 by Scarlett De La Rosa RN) Depression Hx MRSA infection (~2009) Low back pain GERD (gastroesophageal reflux disease) AV fistula Seasonal allergies Polycystic kidney disease Peripheral neuropathy Eczema Neuropathy Family History Family History Father Polycystic kidney disease Mother No problems noted. Paternal Grandmother Polycystic kidney disease Family history of problems with anesthesia: No Surgical History Surgical History Hx of wisdom tooth extraction Hx of colonoscopy Kidney transplant recipient History of surgery on arm History of D&C History of nephrectomy (~2008) History of tubal ligation History of kidney transplant (~2010) History of Problems with Anesthesia: No Social History Social History (Updated 11/16/23 @ 10:14 by Scarlett De La oRsa, GLORIA) Housing: House Housing Other:: trailer Are you a primary child care center assistant director to a significant other at home: No Do you presently have visiting nurse or other home services: No Alcohol intake: never Patient Tobacco Use Status: Never used Tobacco e-Cigarette/Vaping Use: Never Used Second Hand Smoke Exposure: No Use of substances other than those prescribed or required for medical reasons: No Have you been hit, kicked, punched, or otherwise hurt by someone within the past year? If so, by whom?: No Are you DNR?: No Advance Directives: No Advance Directives Information Provided: Yes Advance Directives on File: No Recently lost weight without trying: No Nutrition Risks: No Nutritional Risk Poor oral hygiene: No service: No Current occupational status: disabled Current occupational exposures/hazards: No Cognitive needs: No Hearing needs: No Vision needs: Yes Meds Allergies Allergy/AdvReac Type Severity Reaction Status Date / Time clonazepam Allergy Intermediate memory Verified 11/22/23 08:15 lapses lisinopril Allergy Intermediate Cough Verified 11/22/23 08:15 soy [SOY] Allergy Intermediate FLUSHING,IT Verified 11/22/23 08:15 ELIE buspirone AdvReac Severe psychosis Verified 11/22/23 08:15 Home Medications ?Medication ?Instructions ?Recorded ?Confirmed ?Last Taken ?Type belatacept 250 mg intravenous 375 mg IV Q4W 12/26/19 11/22/23 Unknown History solution mycophenolate sodium 180 mg 540 mg PO BID 12/26/19 11/22/23 11/22/23 History tablet,delayed release multivitamin 1 tab PO DAILY 02/03/20 11/22/23 Unknown History omeprazole 20 mg capsule,delayed 20 mg PO DAILY 03/03/22 11/22/23 11/22/23 History release fluticasone propionate 50 1 spray intranasal DAILY PRN 11/16/23 11/22/23 Unknown History mcg/actuation nasal Allergy Symptoms spray,suspension Exam Exam Date and Time: 11/22/23 0940 Height,Weight and Vital Signs: Height 5 ft 7 in Weight 76.1 kg Last Vital Signs Pulse 87 11/16/23 09:59 Resp 16 11/16/23 09:59 BP 158/78 H 11/16/23 09:59 Pulse Ox 98 11/16/23 09:59 O2 Del Method Room Air 11/16/23 09:59 Vital Signs Pulse Rate 87 11/16/23 09:59 Respiratory Rate 16 11/16/23 09:59 Blood Pressure 158/78 H 11/16/23 09:59 Pulse Oximetry 98 11/16/23 09:59 Oxygen Delivery Method Room Air 11/16/23 09:59 Temperature 97.9 F 11/22/23 08:27 Pulse Rate 78 11/22/23 08:27 Respiratory Rate 16 11/22/23 08:27 Blood Pressure 164/83 H 11/22/23 08:27 Pulse Oximetry 99 11/22/23 08:27 Oxygen Delivery Method Room Air 11/22/23 08:27 Airway Mallampati Class: II TM Dist: >3cm Neck ROM: Full Loose/Missing/Broken Teeth: Yes (molars missing; patient denies any loose or broken teeth) Heart: S1S2 Assessment and Plan Assessment Anesthesia Assessment: Anesthesia Plan Discussed and Chart Reviewed Final Anesthetic Review Family History of Problems with Anesthesia: No History of Problems with Anesthesia: No NPO: Yes ASA Class: III Final Preanesthetic Review: No Changes in Pt Med Stat, Meds/Allgs Chart Reviewed, Consent Obtained/Reviewed and Anes Risks/Benef Reviewed Patient Risk: Intermediate Procedure Risk: Intermediate Anesthetic Plan Anesthetic Plan: GA and Agree w/ Assess. and Plan Disposition: Standard PACU
--- NOTE | 2023-11-22 11:34 | W.PM.OPN ---
Operative Note Operative Note Date of Service: 11/22/23 Narrative: Preoperative Diagnosis: Left L5-S1 lateral recess stenosis and L5 foraminal stenosis Operation: Left L5 Laminotomy, Partial facetectomy and foraminotomy with use of microscope Consent Informed Consent was obtained for this operation. I have explained the nature, purpose and benefits of the operation. I have discussed the risks and benefit of the operation including possible complications or adverse events with patient/family. Alternative(s) were discussed with the patient with their relative benefits and risks as well as the consequences of not accepting the operation were included in obtaining consent. Surgeon: TY SIM MD, PHD Procedure Assisted By: ania Devi Description of Procedure This patient is suffering from a left L5 radiculopathy due to a L5 neuroforaminal stenosis. The patient was offered a decompression of the nervous structures. The procedure complications were explained. The patient was consented. The patient was brought to the operating room and endotracheally intubated. The patient was turned in prone position on the David frame. Prep and drape was done followed by timeout. Physician speech language pathologist assistant provided access. A mid lumbar incision was made followed by release of the paravertebral muscle on the left side to expose the L5 lamina and facet joint. An intraoperative x-ray was obtained to confirm the correct level. The microscope was brought in. I took over the procedure. The high-speed drill was used to do a L5 laminotomy. #2 Kerrison was used to further remove the lamina towards the L5 foramen. With a nerve hook the medial wall of the L5 pedicle was palpated as well as the beginning of the L5 foramen. The facet joint was partially drilled down after which with a #2 Kerrison a foraminotomy was done. Finally a foraminotomy Kerrison was used to complete the foraminotomy. A long nerve hook could be easily passed lateral and dorsally from the nerve root, a sign of relief of the neuroforaminal stenosis and decompression of the nerve root . The microscope was removed. Hemostasis was done. Incision was closed in 2 layers. Steri-Strips were used to approximate incision. An OpSite with Tegaderm was used to cover the incision. All sponge needle counts were correct. Patient was extubated and transported in stable is to recovery room. Anesthesia: General Estimated Blood Loss (ml): 35 ml Duration of Surgery: Under 60 Minutes Postoperative Plan: Discharge to home
--- NOTE | 2023-11-22 11:42 | P.DS_ITS ---
DS: Providers Provider Date of Service: 11/22/23 Date of discharge: 11/22/23 Primary care physician: Ernst Ander MD Admitting clinician: Abad Salazar DS: Diagnosis Discharge Diagnosis (1) Neuroforaminal stenosis of lumbar spine: Status: Acute DS: Summary Time Attestation Discharge Coordination Time (in mins): 5 Quality: Safe Use of Opioids Does Pt have an Active Cancer Diagnosis on the Problem List?: No Quality: Stroke Does the patient have a stroke diagnosis?: No Physical Exam Vital Signs: Vital Signs: Last Vital Signs Temp 97.9 F 11/22/23 08:27 Pulse 78 11/22/23 08:27 Resp 16 11/22/23 08:27 BP 164/83 H 11/22/23 08:27 Pulse Ox 99 11/22/23 08:27 O2 Del Method Room Air 11/22/23 08:27 BMI result Body Mass Index 25.2 Discharge Plan Discharge Patient Disposition: Home, Self-Care Referrals: Ernst Andre MD [Primary Care Provider] - 1 Week Discharge Medications: New docusate sodium [Colace] 100 mg capsule 100 mg PO BID Qty: 20 0RF oxycodone 5 mg tablet 5 mg PO Q4H PRN (Reason: pain) Qty: 30 0RF Rx Instructions: Partial Fill upon patient request. Continued bupropion HCl 300 mg tablet extended release 24 hr 300 mg PO DAILY Qty: 90 8RF paroxetine HCl [Paxil] 20 mg tablet 20 mg PO DAILY Qty: 30 1RF lidocaine 5 % adhesive patch,medicated 1 patch topical DAILY PRN (Reason: pain) Qty: 30 1RF Rx Instructions: leave on most painful area for up to 12 hrs bupropion HCl 150 mg tablet extended release 24 hr 150 mg PO DAILY Qty: 90 6RF loratadine [Allergy Relief (loratadine)] 10 mg tablet 10 mg PO DAILY PRN (Reason: allergy symptoms) Qty: 90 0RF tramadol 50 mg tablet 50 mg PO Q8H PRN (Reason: pain (scale score 7-10)) 10 Days Qty: 30 0RF fluticasone propionate 50 mcg/actuation spray,suspension 1 spray intranasal DAILY PRN (Reason: Allergy Symptoms) mycophenolate sodium 180 mg tablet,delayed release (DR/EC) 540 mg PO BID belatacept 250 mg recon soln 375 mg IV Q4W multivitamin Tablet 1 tab PO DAILY omeprazole 20 mg capsule,delayed release(DR/EC) 20 mg PO DAILY naloxone [Narcan] 4 mg/actuation spray,non-aerosol 4 mg intranasal Q2M PRN (Reason: opioid overdose) Qty: 2 0RF Rx Instructions: spray 1 dose into ONE nostril; alternate nostrils w each dose until help arrives Discharge Orders: Discharge Order (Routine); Ordered 11/22/23 Ordered By: Efraín Field Diet: Advance to usual diet Activity on Discharge: As tolerated Activity Restrictions/Additional Instructions: After your spinal surgery we ask you to observe the following restrictions/guidelines: Activity: It is normal to feel some discomfort as you increase your activity, but that will improve with time. We ask you avoid heavy lifting or acitivities that cause pain. As a general rule, 8lbs is a safe limit for lifting right after surgery. Walk as much as you feel comfortable but not to exhaustion. You will feel extra tired the first few days after surgery. Stay well hydrated. It is OK to walk up and down stairs You may return to driving when you are off narcotics (such as vicodin, oxycodone, dilaudid, etc), and you are back to normal functional capacity. If you have any concerns please check with office before driving. Return to work is specific to each patient and each surgery, so please speak with your doctor/PA at first follow up. Please bring paperwork such as FMLA at that time if you need it filled out. Medications: For optimum pain control, it is best to start with a combination of 500 mg of Tylenol every 4 hours with 600 mg of Motrin every 8 hours, and use narcotics as needed in between for breakthrough pain. We will give you a short supply of narcotics after surgery (usually one weeks worth). If you need more please call the office but do not use more than prescribed. You will need to give our office 48 hours notice if you need narcotics refilled and we do not fill narcotics on weekends or evenings. If you are on a narcotic, it is a good idea to take a stool softener such as colace or senna to avoid constipation If you take blood thinner such as aspirin, Plavix, Coumadin, Effient, Eliquis etc for conditions such as Afib, DVT, Pulmonary embolus, coronary disease, stents etc please speak with your surgeon about specific details as to when you can resume these medications. You can resume NSAIDs on post op day 1 (eg: Motrin, Naproxen, etc). Follow up: Please call the office, , after surgery to arrange a 3 week follow up for wound check. Wound Care: You may remove your dressing on the first day after surgery. ?You may ?leave open to air. Please do not remove the steri strips underneath. they will fall off on their own in one week. IT IS NORMAL FOR THE WOUND TO OOZE OR BE BLOODY FOR A FEW DAYS AFTER SURGERY. ?IF THIS HAPPENS JUST PLACE NEW DRESSING OVER IT TO AVOID STAINING CLOTHES. You may shower on post op day # 1 We ask that you do not let the water soak the wound. If it does get wet, just towel dry lightly. Please do not scrub your incision or place any type of chemical/ointment on the wound. No tub baths, pools or jacuzzis for one month. If you have any leaking or redness from your wound, or fevers, please call office Print Language: Bots[place]an
[2023-11-22] MEDS: oxyCODONE HCl Immed Release 5 MG TABLET PO (11:59)
[2023-11-22] MEDS: fentaNYL citrate/PF 100 MCG/2 ML VIAL 50 MCG IVPUSH ×2 (12:17→12:24)
[2023-11-22] MEDS: HYDROmorphone HCl 0.5 MG/0.5 ML SYRINGE IVPUSH (13:10)
== END 2023-11-22 14:26 | disposition home or self-care (01) ==
PROVIDERS: PCP Internal Medicine; Visit Provider Neurological Surgery
PROC: (CPT 63047; principal; 2023-11-22 10:50)
DX: M48.061 Spinal stenosis, lumbar region without neurogenic claudication (principal); M43.16 Spondylolisthesis, lumbar region; M54.16 Radiculopathy, lumbar region; G89.4 Chronic pain syndrome; I10 Essential (primary) hypertension; K21.9 Gastro-esophageal reflux disease without esophagitis; Z94.0 Kidney transplant status; I77.0 Arteriovenous fistula, acquired; F32.A Depression, unspecified; Z79.899 Other long term (current) drug therapy; Z88.8 Allergy status to other drugs, medicaments and biological substances
CPT/HCPCS: 63047; 93005; J0131; J0690; J1100; J1171; J2003; J2250; J2405; J2704; J3010

== ENCOUNTER → 2023-11-22 08:05 | Outpatient (BNV) | payer OTHER, SELFPAY | PROVIDERS: PCP Internal Medicine; Visit Provider Neurological Surgery | DX: M48.061 Spinal stenosis, lumbar region without neurogenic claudication (principal) | CPT/HCPCS: 63047; 99499 ==

== ENCOUNTER 2023-12-13 10:20 | Outpatient (AMB) | payer OTHER, SELFPAY ==
--- NOTE | 2023-12-13 10:35 | A.SPINEOV_ITS ---
Intake Visit Reasons: 1st post op Intake Note: Ms. Crump is here for her 1st post-op. Voice Pathologist Required: No Allergies clonazepam Allergy (Intermediate, Verified 11/22/23 08:15) memory lapses lisinopril Allergy (Intermediate, Verified 11/22/23 08:15) Cough soy [SOY] Allergy (Intermediate, Verified 11/22/23 08:15) FLUSHING,ITCHY buspirone Adverse Reaction (Severe, Verified 11/22/23 08:15) psychosis Assessment & Plan Assessment & Plan (1) Status post lumbar spine surgery for decompression of spinal cord: Code(s): Z98.890 - Other specified postprocedural states Category: Surgical Plan Procedure: Operation: Left L5 Laminotomy, Partial facetectomy and foraminotomy Veronica comes in today for her 1st postoperative visit. She reports she is very satisfied with the surgery and feels much better than she did preoperatively. The patient reports she is up walking around and completing the majority of her ADLs. She reports that she no longer suffers from her left-sided shooting radiculopathy. She still reports mild pain, with good relief with OTC pain control. No new neurological deficits. Patient is able to ambulate well, rises from a seated position without difficulty. Incision sites are closed, well healing, with no signs of drainage. We will follow-up with the patient in 6 weeks for their 2nd postoperative visit. At that time we will get x-rays to review with the patient. Real Salazar MD,PhD [facility] Coding Level of Care Code Global (38952) Diagnoses Status post lumbar spine surgery for decompression of spinal cord Z98.890
== END 2023-12-13 10:54 | disposition home or self-care (01) ==
LOC: HO.HNS 10:21
PROVIDERS: PCP Internal Medicine; Visit Provider Physician Assistant
DX: Z98.890 Other specified postprocedural states (principal)
CPT/HCPCS: 99024

== ENCOUNTER → 2023-12-13 10:20 | Outpatient (BNVA) | payer OTHER, SELFPAY | PROVIDERS: PCP Internal Medicine; Visit Provider Physician Assistant | DX: Z98.890 Other specified postprocedural states (principal) | CPT/HCPCS: 99212 ==

== ENCOUNTER 2024-01-24 09:39 | Outpatient (AMB) | payer OTHER, SELFPAY ==
--- NOTE | 2024-01-24 09:49 | HO.SPINEOV ---
Intake Visit Reasons: 2nd post op Intake Note: Ms. Crump is here today for her 2nd post op. Multiple Tube Winding Machine Operator Required: No Allergies clonazepam Allergy (Intermediate, Verified 11/22/23 08:15) memory lapses lisinopril Allergy (Intermediate, Verified 11/22/23 08:15) Cough soy [SOY] Allergy (Intermediate, Verified 11/22/23 08:15) FLUSHING,ITCHY buspirone Adverse Reaction (Severe, Verified 11/22/23 08:15) psychosis Assessment & Plan Assessment & Plan (1) Status post lumbar spine surgery for decompression of spinal cord: Code(s): Z98.890 - Other specified postprocedural states Category: Surgical Plan Operation: Left L5 Laminotomy, Partial facetectomy and foraminotomy Veronica comes in today for her 2nd post-operative visit. To recap she was previously doing very well during her initial post-operative visit. She reports that she still does have some pain in her low back with excessive activity, but overall she is doing much better than she was prior to surgery. She reports about a 95% improvement in her pain overall. We discussed the postoperative healing course, and I answered all of her questions to the best of my ability. No new neurological deficits. The patient ambulates well and rises from a seated position without difficulty. There is no need for continued routine follow-up. The patient may be discharged and follow up on an as-needed basis. Real Salazar MD,PhD [facility] Coding Level of Care Code Global (24885) Diagnoses Status post lumbar spine surgery for decompression of spinal cord Z98.890
== END 2024-01-24 10:01 | disposition home or self-care (01) ==
PROVIDERS: PCP Internal Medicine; Visit Provider Physician Assistant
DX: Z98.890 Other specified postprocedural states (principal)
CPT/HCPCS: 99024

== ENCOUNTER → 2024-01-24 09:39 | Outpatient (BNVA) | payer OTHER, SELFPAY | PROVIDERS: PCP Internal Medicine; Visit Provider Physician Assistant | DX: Z48.89 Encounter for other specified surgical aftercare (principal); Z98.890 Other specified postprocedural states | CPT/HCPCS: 99212 ==

== ENCOUNTER 2024-02-29 17:58 | Emergency (ER) | payer OTHER, SELFPAY ==
--- NOTE | ~2024-02-29 | CT_ITS ---
CLINICAL HISTORY: headache CT head without contrast Comparison: CT/REG/SR - CT HEAD/BRAIN WO IV CON - 02/21/22 08:07 EST Findings: No intra-axial mass, midline shift, hydrocephalus, or acute hemorrhage. There are low-attenuation changes in the periventricular and subcortical white matter likely the result of microvascular ischemia. Right-sided lacunar infarcts are again noted. There is no sinus or mastoid fluid. The orbits are within normal limits. No skull fracture. 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 IMPRESSION: 1. No acute intracranial findings. Microvascular changes and lacunar infarcts. This document has been electronically signed by: Lalo Kelly MD on 02/29/2024 21:37:03
[2024-02-29 18:23] VITALS: BP 192/88; PULSE 81; RESP 16; TEMP 36.7; O2SAT 100; BMI 26.1
--- NOTE | 2024-02-29 18:24 | ED_ITS ---
HPI - General Adult General Chief complaint: Recheck/Abnormal Lab/Rx Stated complaint: hypertension Time Seen by Provider: 02/29/24 22:54 Source: patient Mode of arrival: ambulatory Limitations: no limitations History of Present Illness ED Provider: HPI narrative: Patient is status post renal transplant patient with normal blood pressure in the past went to PCP for routine exam noted to have blood pressure in the 190 range PCP advised to keep an eye on the blood pressure still elevated go to the ER patient does have mild headache for last 7 days on arrival patient's blood pressure was 192/88 no nausea no vomiting no chest pain no shortness of breath Related Data Home Medications ?Medication ?Instructions ?Recorded ?Confirmed belatacept 250 mg intravenous 375 mg IV Q4W 12/26/19 11/22/23 solution mycophenolate sodium 180 mg 540 mg PO BID 12/26/19 11/22/23 tablet,delayed release multivitamin 1 tab PO DAILY 02/03/20 11/22/23 omeprazole 20 mg capsule,delayed 20 mg PO DAILY 03/03/22 11/22/23 release fluticasone propionate 50 1 spray intranasal DAILY PRN 11/16/23 11/22/23 mcg/actuation nasal Allergy Symptoms spray,suspension Previous Rx's ?Medication ?Instructions ?Recorded bupropion HCl 300 mg 24 hr tablet, 300 mg PO DAILY #90 tabs 03/22/23 extended release paroxetine HCl 20 mg tablet (Paxil) 20 mg PO DAILY #30 tabs 09/25/23 naloxone 4 mg/actuation nasal 4 mg intranasal Q2M PRN opioid 09/28/23 spray (Narcan) overdose #2 ea lidocaine 5 % topical patch 1 patch topical DAILY PRN pain #30 10/16/23 ea bupropion HCl 150 mg 24 hr tablet, 150 mg PO DAILY #90 tabs 10/19/23 extended release tramadol 50 mg tablet 50 mg PO Q8H PRN pain (scale score 10/22/23 7-10) 10 days #30 tabs docusate sodium 100 mg capsule 100 mg PO BID #20 caps 11/22/23 (Colace) hydromorphone 2 mg tablet 2 mg PO Q8H PRN pain #21 tabs 12/26/23 loratadine 10 mg tablet (Allergy 10 mg PO DAILY PRN allergy 01/11/24 Relief (loratadine)) symptoms #90 tabs amlodipine 5 mg tablet 5 mg PO DAILY #30 tabs 02/29/24 Allergies Allergy/AdvReac Type Severity Reaction Status Date / Time clonazepam Allergy Intermediate memory Verified 02/29/24 18:26 lapses lisinopril Allergy Intermediate Cough Verified 02/29/24 18:26 soy [SOY] Allergy Intermediate FLUSHING,IT Verified 02/29/24 18:26 ELIE buspirone AdvReac Severe psychosis Verified 02/29/24 18:26 Review of Systems 2 Review of Systems: Yes all other systems are reviewed and are negative PMFSH Past Medical History Medical History Depression Hx MRSA infection (~2009) Low back pain GERD (gastroesophageal reflux disease) AV fistula Seasonal allergies Polycystic kidney disease Peripheral neuropathy Eczema Neuropathy Surgical History Hx of wisdom tooth extraction Hx of colonoscopy Kidney transplant recipient History of surgery on arm History of D&C History of nephrectomy (~2008) History of tubal ligation History of kidney transplant (~2010) Family History Family History Father Polycystic kidney disease Mother No problems noted. Paternal Grandmother Polycystic kidney disease Social History Social History Housing: House Housing Other:: trailer Are you a primary adult live in caregiver to a significant other at home: No Do you presently have visiting nurse or other home services: No Alcohol intake: never Patient Tobacco Use Status: Never used Tobacco Smoked in Last 30 Days: No e-Cigarette/Vaping Use: Never Used Second Hand Smoke Exposure: No Use of substances other than those prescribed or required for medical reasons: No Advance Directives: No Advance Directives Information Provided: No Patient : No service: No Current occupational status: disabled Current occupational exposures/hazards: No Cognitive needs: No Hearing needs: No Vision needs: Yes Physical Exam ED Vital Signs: Vital Signs - 24 hr 02/29/24 18:23 02/29/24 22:30 02/29/24 23:30 Temperature 98.1 F 98.2 F Pulse Rate 81 83 Respiratory Rate 16 16 Blood Pressure 192/88 H 170/95 H 160/86 H Pulse Oximetry 100 99 Oxygen Delivery Method Room Air Room Air 02/29/24 23:54 Temperature 98.3 F Pulse Rate 80 Respiratory Rate 16 Blood Pressure 155/82 H Pulse Oximetry 97 Oxygen Delivery Method Room Air BMI result Body Mass Index 26.1 Appearance: Alert. Oriented X3. No acute distress. Eyes: PERRLA, No Nystagmus ENT: Pharynx normal. Oral Mucosa moist Neck: Normal inspection. Neck supple. CVS: Normal heart rate and rhythm. Pulses normal. Respiratory: No respiratory distress. Equal air entry bilateral, no wheezing/rales/rhonchi Abdomen: Soft and nontender. Bowel sounds are present, no mass palpable, no CVA tenderness Skin: Skin warm and dry. Normal skin color. Normal skin turgor. Extremities: No lower extremity edema. No calf tenderness Neuro: Oriented X 3. No motor deficit. No sensory deficit.No cerebellar signs , cranial nerves II-XII intact Course Course Course Narrative: RME, this is a rapid medical exam performed by Marcellus Jarrett please refer to primary provider for complete H&P- 58 old female presents for evaluation of elevated blood pressure. Her blood pressure in triage is 192/88. She states she has had a headache for the last 3 days and does not take any medications for high blood pressure. Denies any chest pain. Plan for labs, CT scan of the brain. Medications Administered Discontinued Medications Generic Name Dose Route Start Last Admin Trade Name Freq PRN Reason Stop Dose Admin Amlodipine Besylate 5 mg 02/29/24 23:18 02/29/24 23:30 Amlodipine Besylate 5 Mg Tablet PO 02/29/24 23:19 5 mg ONCE ONE Administration Protocol Medical Decision Making Medical Decision Making [facility] Narrative: Patient is status post renal transplant with elevated blood pressure with no prior history of hypotension patient was prescribed amlodipine further risk patient has advised to check the blood pressure before taking the medication and follow up with behavioral health care manager and PCP Lab Data [facility] Lab Attestation statement: I reviewed the patient's lab results. 02/29/24 18:41 02/29/24 18:41 Labs: Lab Results 02/29/24 02/29/24 Range/Units 18:40 18:41 WBC 5.1 (4.8-10.8) X10*3/uL RBC 3.62 L (4.20-5.50) X10*6/uL Hgb 11.3 L (12.0-16.0) g/dl Hct 33.9 L (37.0-47.0) % MCV 93.6 (80.0-98.0) fL MCH 31.2 (27.0-33.0) pg MCHC 33.3 (31.0-35.0) g/dl RDW 12.6 (11.0-16.0) % Plt Count 194 (160-400) X10*3/uL MPV 10.2 (9.4-12.3) fL Immature Gran % (Auto) 0.4 (0.0-0.4) % Neut % (Auto) 52.1 (45-73) % Lymph % (Auto) 37.8 (20-40) % Villalba % (Auto) 6.1 (2-11) % Eos % (Auto) 3.2 (0-4) % Baso % (Auto) 0.4 (0-2) % Lymph # (Auto) 1.9 (1.2-4.9) X10*3/uL Villalba # (Auto) 0.3 (0.1-1.2) X10*3/uL Eos # (Auto) 0.2 (0.0-0.4) X10*3/uL Baso # (Auto) 0.0 (0.0-0.2) X10*3/uL Abs Immat Gran (auto) 0.02 (0.00-0.03) X10*3/uL Absolute Neuts (auto) 2.6 (2.0-8.3) x10*3/uL Absolute Nucleated RBC 0.000 (0.0-0.012) X10*3/uL Nucleated RBC % (auto) 0.0 (0.0-0.2) /100WBC Sodium 141 (135-145) mmol/L Potassium 3.9 (3.3-5.1) mmol/L Chloride 111 H (96-108) mmol/L Carbon Dioxide 24 (22-29) mmol/L Anion Gap 10 L (12-20) BUN 34 H (9-16) mg/dL Creatinine 1.36 (0.5-1.4) mg/dL Estim Creat Clear Calc 46.6 Estimated GFR 40 Random Glucose 106 (60-115) mg/dL Calcium 8.9 D (8.4-10.2) mg/dL Total Bilirubin 0.3 (0.0-1.0) mg/dL AST 21 (5-31) U/L ALT 18 (0-31) U/L Alkaline Phosphatase 77 (39-117) U/L Troponin I High Sens 9.2 (<3.5-17.0) ng/L Total Protein 7.3 (6.5-8.0) g/dL Albumin 4.0 (3.5-5.0) g/dL Lipase 48 (8-78) U/L Influenza Type A (PCR) NEGATIVE (Negative) Influenza Type B (PCR) NEGATIVE (Negative) RSV RNA Qual (PCR) NEGATIVE (Negative) SARS-CoV-2 RNA (RT-PCR) NEGATIVE (Negative) Independent Interpretation I performed an independent interpretation of an: CT Scan Interpretation: NAD Radiology Impression Discussion of test interpretation with radiology: I have reviewed the radiologist's reading. Discharge Plan Discharge Clinical Impression: Hypertension Patient Disposition: Home, Self-Care Instructions: Hypertension (ED) Additional Instructions: Noted to have high blood pressure 192/88 Repeat blood pressure 160/86, 170/95 Start amlodipine 5 mg daily Follow up with your behavioral health care manager/PCP Prescriptions: New amlodipine 5 mg tablet 5 mg PO DAILY Qty: 30 0RF No Action bupropion HCl 300 mg tablet extended release 24 hr 300 mg PO DAILY Qty: 90 8RF paroxetine HCl [Paxil] 20 mg tablet 20 mg PO DAILY Qty: 30 1RF lidocaine 5 % adhesive patch,medicated 1 patch topical DAILY PRN (Reason: pain) Qty: 30 1RF Rx Instructions: leave on most painful area for up to 12 hrs bupropion HCl 150 mg tablet extended release 24 hr 150 mg PO DAILY Qty: 90 6RF tramadol 50 mg tablet 50 mg PO Q8H PRN (Reason: pain (scale score 7-10)) 10 Days Qty: 30 0RF hydromorphone 2 mg tablet 2 mg PO Q8H PRN (Reason: pain) Qty: 21 0RF Rx Instructions: Partial Fill upon patient request. loratadine [Allergy Relief (loratadine)] 10 mg tablet 10 mg PO DAILY PRN (Reason: allergy symptoms) Qty: 90 0RF fluticasone propionate 50 mcg/actuation spray,suspension 1 spray intranasal DAILY PRN (Reason: Allergy Symptoms) docusate sodium [Colace] 100 mg capsule 100 mg PO BID Qty: 20 0RF mycophenolate sodium 180 mg tablet,delayed release (DR/EC) 540 mg PO BID belatacept 250 mg recon soln 375 mg IV Q4W multivitamin Tablet 1 tab PO DAILY omeprazole 20 mg capsule,delayed release(DR/EC) 20 mg PO DAILY naloxone [Narcan] 4 mg/actuation spray,non-aerosol 4 mg intranasal Q2M PRN (Reason: opioid overdose) Qty: 2 0RF Rx Instructions: spray 1 dose into ONE nostril; alternate nostrils w each dose until help arrives Interventions: ED Discharge Assessment Last Done: 02/29/24 23:54 Discharge Date/Time: 02/29/24 23:54 Print Language: Turkmen
--- NOTE | 2024-02-29 18:25 | ECG_ITS ---
Test Reason : HYPERTENSION Blood Pressure : */* mmHG Vent. Rate : 81 BPM Atrial Rate : 81 BPM P-R Int : 148 ms QRS Dur : 88 ms QT Int : 372 ms P-R-T Axes : 47 -7 59 degrees QTcB Int : 432 ms Normal sinus rhythm Moderate voltage criteria for LVH, may be normal variant ( R in aVL , Hood product ) Borderline ECG When compared with ECG of 16-Nov-2023 10:54, No significant change was found Referred By: Davion Jarrett Electronically Signed By: Ren Freitas
[2024-02-29 18:46] LABS: MANUAL DIFF FLAG NO
[2024-02-29 18:52] LABS: Basophils Percent Auto 0.4 % (0-2); Eosinophils Absolute Auto 0.2 X10*3/uL (0.0-0.4); Eosinophils Percent Auto 3.2 % (0-4); Hematocrit 33.9 % (37.0-47.0); Hemoglobin 11.3 g/dl (12.0-16.0); Imm Gran Abs Auto 0.02 X10*3/uL (0.00-0.03); Imm Gran Pct Auto 0.4 % (0.0-0.4); Lymphocytes Absolute Auto 1.9 X10*3/uL (1.2-4.9); Lymphocytes Percent Auto 37.8 % (20-40); Mean Corpuscular HGB Conc 33.3 g/dl (31.0-35.0); Mean Corpuscular Hemoglobin 31.2 pg (27.0-33.0); Mean Corpuscular Volume 93.6 fL (80.0-98.0); Mean Platelet Volume 10.2 fL (9.4-12.3); Monocytes Absolute Auto 0.3 X10*3/uL (0.1-1.2); Monocytes Percent Auto 6.1 % (2-11); Neutrophils Absolute Auto 2.6 x10*3/uL (2.0-8.3); Neutrophils Percent Auto 52.1 % (45-73); Platelet Count 194 X10*3/uL (160-400); Red Blood Count 3.62 X10*6/uL (4.20-5.50); Red Cell Distribution Width 12.6 % (11.0-16.0); White Blood Count 5.1 X10*3/uL (4.8-10.8)
[2024-02-29 19:05] LABS: Alanine Aminotransferase 18 U/L (0-31); Alkaline Phosphatase 77 U/L (39-117); Anion Gap 10 (12-20); Aspartate Amino Transferase 21 U/L (5-31); Bilirubin Total 0.3 mg/dL (0.0-1.0); Blood Urea Nitrogen 34 mg/dL (9-16); Calcium 8.9 mg/dL (8.4-10.2); Carbon Dioxide 24 mmol/L (22-29); Chloride 111 mmol/L (96-108); Creatinine Clr Calc Pharmacy 46.6; Estimated Glomerular Filt Rate 40; Glucose Random 106 mg/dL (60-115); Lipase 48 U/L (8-78); Potassium 3.9 mmol/L (3.3-5.1); Sodium 141 mmol/L (135-145); Total Protein 7.3 g/dL (6.5-8.0)
[2024-02-29 19:12] LABS: Troponin-I High Sensitivity 9.2 ng/L (<3.5-17.0)
[2024-02-29 19:31] LABS: Influenza A PCR NEGATIVE (Negative); Influenza B PCR NEGATIVE (Negative); Resp Syncy Virus RNA Qual PCR NEGATIVE (Negative); SARS COV2 PCR INHOUSE NEGATIVE (Negative)
[2024-02-29 22:30] VITALS: BP 170/95; PULSE 83; RESP 16; TEMP 36.8; O2SAT 99
[2024-02-29 23:30] VITALS: BP 160/86
[2024-02-29] MEDS: amLODIPine Besylate 5 MG TABLET PO (23:30)
[2024-02-29 23:54] VITALS: BP 155/82; PULSE 80; RESP 16; TEMP 36.8; O2SAT 97
== END 2024-02-29 23:54 | disposition home or self-care (01) ==
PROVIDERS: Physician Assistant; Emergency Provider Internal Medicine; PCP Internal Medicine
DX: I10 Essential (primary) hypertension (principal); R51.9 Headache, unspecified; Z03.818 Encounter for observation for suspected exposure to other biological agents ruled out
CPT/HCPCS: 0241U; 70450; 80053; 83690; 84484; 85025; 93005; 99284

== ENCOUNTER → 2024-02-29 18:25 | Outpatient (BNV) | payer OTHER, SELFPAY | PROVIDERS: PCP Internal Medicine; Visit Provider Radiology Diagnostic Radiology | DX: I63.81 Other cerebral infarction due to occlusion or stenosis of small artery (principal) | CPT/HCPCS: 70450 ==

== ENCOUNTER → 2024-02-29 18:25 | Outpatient (BNV) | payer OTHER, SELFPAY | PROVIDERS: Emergency Provider Internal Medicine; PCP Internal Medicine; Visit Provider Internal Medicine Cardiovascular Disease | DX: I10 Essential (primary) hypertension (principal) | CPT/HCPCS: 93010 ==

== ENCOUNTER → 2024-03-07 10:17 | Outpatient (BNVA) | payer OTHER, SELFPAY | PROVIDERS: PCP Internal Medicine; Visit Provider Internal Medicine | DX: I10 Essential (primary) hypertension (principal) | CPT/HCPCS: 96127; 99212 ==

== ENCOUNTER → 2024-03-21 09:58 | Outpatient (AMB) | payer OTHER, SELFPAY | END | disposition home or self-care (01) | PROVIDERS: PCP Internal Medicine; Visit Provider Internal Medicine ==

== ENCOUNTER → 2024-03-21 09:58 | Outpatient (BNVA) | payer OTHER, SELFPAY | PROVIDERS: PCP Internal Medicine; Visit Provider Internal Medicine | DX: I10 Essential (primary) hypertension (principal) | CPT/HCPCS: 99212 ==

== ENCOUNTER 2024-07-01 08:57 | Outpatient (REF) | payer OTHER, SELFPAY ==
--- OUTSIDE RECORDS SUMMARY | 2024-07-01 11:02 | XMS_ITS | Encounter Summary ---
Author Organization [facility] [place], Address [address] [place] [address] Phone Care Team Providers Care Ramp Manager Name Role Phone Ernst Andre MD Primary Care Provider [phone] Encounter Details Date Type Department Care Team (Late st Contact Info) Description 03/03/2021 Documentation Only [facility] [place], [address] [place] [place] [address] [place], [place] [address] [place] [address] Social History Tobacco Use Types [...] [facility] [address] [place] [address] Israel Fermin MD [address] [facility] [place] [address] documented as of this encounter Visit Diagnoses Not on filedocumented in this encounter Care Teams Ramp Manager Relationship Specialty Start Date End Date Ernst Andre MD [address] [place], [place] PCP - General 12/17/18 documented as of this encounter
--- OUTSIDE RECORDS SUMMARY | 2024-07-01 11:02 | XMS_ITS | Encounter Summary ---
Author Organization [facility], Address [address] [place] [address] Phone Care Team Providers Care Integrated Campaign Manager Name Role Phone Ernst Andre MD Primary Care Provider [phone] Reason for Visit * Reason Comments Med Refill Encounter Details Date Type Department Care Team (Late st Contact Info) Description 04/21/2021 Refill [facility] [address] [place] [address] Donny Pink PA Social History Tobacco Use [...] Office Visit [facility] [address] [place] [address] Israel Fermin MD [address] [place] [address] documented as of this encounter Visit Diagnoses Not on filedocumented in this encounter Care Teams Integrated Campaign Manager Relationship Specialty Start Date End Date Ernst Andre MD [address] [place], [place] PCP - General 12/17/18 documented as of this encounter
--- OUTSIDE RECORDS SUMMARY | 2024-07-01 11:02 | XMS_ITS | Encounter Summary ---
Author Organization [facility] Address [address] [place] [address] Phone Care Team Providers Care Aviation Program Manager Name Role Phone Ernst Andre MD Primary Care Provider [phone] Encounter Details Date Type Department Care Team (Late Contact Info) Description 05/12/2022 Documentation Only [facility] [place], [address] [place] [address] Maricel Graves [address] [place] [address] Social History Tobacco Use Types Packs/Day [...] Visit [facility] [address] [place] [address] Israel Fermin MD [address] [place] [address] [place] [address] documented as of this encounter Visit Diagnoses Not on filedocumented in this encounter Care Teams Aviation Program Manager Relationship Specialty Start Date End Date Ernst Andre MD [address] [place], [place] PCP - General 12/17/18 documented as of this encounter
--- OUTSIDE RECORDS SUMMARY | 2024-07-01 11:02 | XMS_ITS | Encounter Summary ---
Author Organization [facility], Address [address] [place] [address] Phone Care Team Providers Care Technology Resource Teacher Name Role Phone Ernst Andre MD Primary Care Provider [phone] Reason for Visit * Reason Comments Med Refill Encounter Details Date Type Department Care Team (Late st Contact Info) Description 10/20/2019 Refill [facility] [address] [place] [address] Donny Pink PA Social History Tobacco Use [...] Office Visit [facility] [address] [place] [address] Israel Fermin MD [address] [place] [address] documented as of this encounter Visit Diagnoses Not on filedocumented in this encounter Care Teams Technology Resource Teacher Relationship Specialty Start Date End Date Ernst Andre MD [address] [place], [place] PCP - General 12/17/18 documented as of this encounter
--- OUTSIDE RECORDS SUMMARY | 2024-07-01 11:02 | XMS_ITS | Clinical Summary ---
Author Organization [facility] Address [address] [place] [address] Care Team Providers Care Image Scientist Name Role Phone Unavailable Primary Care Provider [...]
--- OUTSIDE RECORDS SUMMARY | 2024-07-01 11:02 | XMS_ITS | Encounter Summary ---
Author Organization [facility], Address [address] [place] [address] Phone Care Team Providers Care Slat Basket Maker Helper Machine Name Role Phone Ernst Andre MD Primary Care Provider [phone] Reason for Visit * Reason Comments Med Refill Encounter Details Date Type Department Care Team (Late st Contact Info) Description 08/09/2019 Refill [facility] [address] [place] [address] Israel Fermin MD [address] [place] [address] [place] [address] Social History Tobacco Use Types [...] Visit [facility] [place] [address] [facility] [place] [place] [address] Israel Fermin MD [address] [facility] [place] [address] documented as of this encounter Visit Diagnoses Not on filedocumented in this encounter Care Teams Slat Basket Maker Helper Machine Relationship Specialty Start Date End Date Ernst Andre MD [address] [place], [place] PCP - General 12/17/18 documented as of this encounter
--- OUTSIDE RECORDS SUMMARY | 2024-07-01 11:02 | XMS_ITS | Encounter Summary ---
Author Organization [facility] Address [address] [place] [address] Phone Care Team Providers Care Overlocker Name Role Phone Ernst Andre MD Primary Care Provider [phone] Encounter Details Date Type Department Care Team (Late Contact Info) Description 01/15/2024 Documentation Only [facility] [place], [address] [place] [address] Maricel Graves [address] [place] [phone] Social History Tobacco Use Types Packs/Day [...] Visit [facility] [address] [place] [address] Israel Fermin MD [address] [place] [address] [place] [address] documented as of this encounter Visit Diagnoses Not on filedocumented in this encounter Care Teams Overlocker Relationship Specialty Start Date End Date Ernst Andre MD [address] [place], [place] PCP - General 12/17/18 documented as of this encounter
--- OUTSIDE RECORDS SUMMARY | 2024-07-01 11:02 | XMS_ITS | Encounter Summary ---
Author Organization [facility] Address [address] [place] [address] Phone Care Team Providers Care Skid Man Name Role Phone Ernst Andre MD Primary Care Provider [phone] Encounter Details Date Type Department Care Team (Late Contact Info) Description 01/15/2024 Documentation Only [facility] [place], [address] [place] [address] Maricel Graves [address] [place] [phone] Social History Tobacco Use Types Packs/Day [...] Visit [facility] [address] [place] [address] Israel Fermin MD [address] [place] [address] [place] [address] documented as of this encounter Visit Diagnoses Not on filedocumented in this encounter Care Teams Skid Man Relationship Specialty Start Date End Date Ernst Andre MD [address] [place], [place] PCP - General 12/17/18 documented as of this encounter
--- OUTSIDE RECORDS SUMMARY | 2024-07-01 11:02 | XMS_ITS | Encounter Summary ---
Author Organization [facility] Address [address] [place] [address] Phone Care Team Providers Care Director Cardiology Name Role Phone Ernst Andre MD Primary Care Provider [phone] Encounter Details Date Type Department Care Team (Late st Contact Info) Description 02/14/2022 Documentation Only [facility] [place], [address] [place] [address] Ernst Andre MD [address] [place] [address] Social History Tobacco Use Types Packs/Day Years [...] Visit [facility] Of [address] [place] [address] Israel Fermin MD [address] [place] [address] [place] [address] documented as of this encounter Visit Diagnoses Not on filedocumented in this encounter Care Teams Director Cardiology Relationship Specialty Start Date End Date Ernst Andre MD [address] [place], [place] PCP - General 12/17/18 documented as of this encounter
--- OUTSIDE RECORDS SUMMARY | 2024-07-01 11:02 | XMS_ITS | Encounter Summary ---
Author Organization [facility], Address [address] [place] [address] Phone Care Team Providers Care X Ray Electronics Wiring Technician Name Role Phone Ernst Andre MD Primary Care Provider [phone] Reason for Visit * Reason Comments Med Refill Encounter Details Date Type Department Care Team (Late st Contact Info) Description 09/16/2019 Refill [facility] [address] [place] [address] Israel Fermin MD [address] [place] [address] [place] [address] Social History Tobacco Use Types [...] Visit [facility] [place] [address] [facility] [place] [address] Israel Fermin MD [address] [facility] [place] [address] documented as of this encounter Visit Diagnoses Not on filedocumented in this encounter Care Teams X Ray Electronics Wiring Technician Relationship Specialty Start Date End Date Ernst Andre MD [address] [place], [place] PCP - General 12/17/18 documented as of this encounter
--- OUTSIDE RECORDS SUMMARY | 2024-07-01 11:02 | XMS_ITS | Encounter Summary ---
Author Organization [facility] Address [address] [place] [address] Phone Care Team Providers Care Payroll Manager Name Role Phone Ernst Andre MD Primary Care Provider [phone] Encounter Details Date Type Department Care Team (Late Contact Info) Description 06/06/2023 Documentation Only [facility] [place], [address] [place] [address] Maricel Graves [address] [place] [phone] Social History Tobacco Use Types Packs/Day [...] Visit [facility] [address] [place] [address] Israel Fermin MD [address] [place] [address] [place] [address] documented as of this encounter Visit Diagnoses Not on filedocumented in this encounter Care Teams Payroll Manager Relationship Specialty Start Date End Date Ernst Andre MD [address] [place], [place] PCP - General 12/17/18 documented as of this encounter
--- OUTSIDE RECORDS SUMMARY | 2024-07-01 11:02 | XMS_ITS | Encounter Summary ---
Author Organization [facility] [place], Address [address] [place] [address] Phone Care Team Providers Care Vice Investigator Name Role Phone Ernst Andre MD Primary Care Provider [phone] Encounter Details Date Type Department Care Team (Late st Contact Info) Description 02/08/2022 Documentation Only [facility] [place], [address] [place] [address] [place], [place] [address] [place] [address] Social History Tobacco Use Types [...] Visit [facility] [address] [place] [address] Israel Fermin MD [address] [facility] [place] [address] documented as of this encounter Visit Diagnoses Not on filedocumented in this encounter Care Teams Vice Investigator Relationship Specialty Start Date End Date Ernst Andre MD [address] [place], [place] PCP - General 12/17/18 documented as of this encounter
--- OUTSIDE RECORDS SUMMARY | 2024-07-01 11:02 | XMS_ITS | Encounter Summary ---
Author Organization [facility] Address [address] [place] [address] Phone Care Team Providers Care Friction Paint Machine Tender Name Role Phone Ernst Andre MD Primary Care Provider [phone] Encounter Details Date Type Department Care Team (Late Contact Info) Description 06/07/2023 Documentation Only [facility] [place], [address] [place] [place] [address] Maricel Graves [address] [place] [phone] Social History Tobacco Use Types Packs/Day [...] Visit [facility] [address] [place] [phone] Israel Fermin MD [address] [place] [address] [place] [address] documented as of this encounter Visit Diagnoses Not on filedocumented in this encounter Care Teams Friction Paint Machine Tender Relationship Specialty Start Date End Date Ernst Andre MD [address] [place], [place] PCP - General 12/17/18 documented as of this encounter
--- OUTSIDE RECORDS SUMMARY | 2024-07-01 11:02 | XMS_ITS | Encounter Summary ---
Author Organization [facility] [place], Address [address] [place] [address] Phone Care Team Providers Care Commercial Relationship Manager Name Role Phone Ernst Andre MD Primary Care Provider Encounter Details Date Type Department Care Team (Late st Contact Info) Description 05/02/2021 Documentation Only [facility] [place], [address] [place] [phone] Israel Fermin MD [address] [facility] [place] [address] Social History Tobacco Use Types [...] Visit [facility] [address] [place] [address] Israel Fermin MD [address] [place] [address] [place] [phone] documented as of this encounter Visit Diagnoses Not on filedocumented in this encounter Care Teams Commercial Relationship Manager Relationship Specialty Start Date End Date Ernst Andre MD [address] [place], [place] PCP - General 12/17/18 documented as of this encounter
--- OUTSIDE RECORDS SUMMARY | 2024-07-01 11:02 | XMS_ITS | Encounter Summary ---
Author Organization [facility] Address [address] [place] [address] Phone Care Team Providers Care Paper Bag Press Operator Name Role Phone Ernst Andre MD Primary Care Provider [phone] Encounter Details Date Type Department Care Team (Late st Contact Info) Description 02/14/2022 Documentation Only [facility] [place], [address] [place] [phone] Ernst Andre MD [address] [place] [address] Social History Tobacco Use Types Packs/Day Years [...] Visit [facility] [address] [place] [phone] Israel Fermin MD [address] [place] [address] [place] [address] documented as of this encounter Visit Diagnoses Not on filedocumented in this encounter Care Teams Paper Bag Press Operator Relationship Specialty Start Date End Date Ernst Andre MD [address] [place], [place] PCP - General 12/17/18 documented as of this encounter
--- OUTSIDE RECORDS SUMMARY | 2024-07-01 11:02 | XMS_ITS | Clinical Summary ---
Author Organization [facility], Address [address] [place] [address] [place] [address] Phone Care Team Providers Care Grouter Helper Name Role Phone Ernst Andre MD Primary Care Provider [phone] Allergies Active Allergy Reactions Criticality Noted Date [...] Office Visit [facility] [address] [place] [address] Israel Fermin MD History of renal transplant [Z94.0] (Primary Dx); History of immunosuppressive therapy [Z92.25]; Hypertension; Stage 3a chronic kidney disease (HCC) [N18.31] 05/07/2024 Telephone [facility] Of [address] [place] [address] Sonia Hope, RN leaked Nuloj[employer] infusion 05/01/24 [...] Visit [facility] [address] [place] [address] Israel Fermin MD [address] [place] [address] [place] [phone] Health Maintenance Due Date Last Done Comments [...] to Culture (06/04/2024 11:01 AM EDT) Specific [place], Urine 1.020 1.005 - 1.030 [facility] pH Urine 6.5 5.0 - 7.5 [facility] [phone] Color, Urine Yellow Yellow [facility] [phone] Appearance Urine Clear Clear [facility] WBC Esterase Urine Negative Negative [facility] Protein, Ur 3+(A) Negative/Tra ce [facility] Glucose, Ur Negative Negative [facility] Ketones, Urine Negative Negative [facility] Blood Urine Negative Negative [facility] Bilirubin Urine Negative Negative [facility] Urobilinogen Urine 0.2 0.2 - 1.0 mg/dL [facility] Nitrite, Urine Negative Negative [facility] Microscopic Examination See below: [facility] [phone] Comment:Microscopic was deyanira cated and was performed. URINALYSIS REFLEX Comment [facility] [phone] Comment:This specimen will n ot reflex to a Urine Culture. Urine (Urine, Clean Catch) 06/04/2024 11:01 AM EDT 06/04/2024 Israel Fermin MD LAB URINE ORDERABLES Final Result Performing Organization Address City/Va Hospital/ZIP Co de Phone Number [facility] [address] [place] [address] * Mycophenolic Acid and Metabo. (06/04/2024 11:01 AM EDT) Mycophenolic Acid 1.5 1.0 - 3.5 ug/mL [facility] Mycophenolic Acid Glucuronide 18 15 - 125 ug/mL [facility] Blood (Blood, Venous) 06/04/2024 11:01 AM EDT 06/04/2024 Narrative [facility] - 06/07/2024 11:06 PM EDT Test(s) 166530-Frljghgevtuy Acid; 453597- Mycophenolic Acid Glucuronide was developed and its performance characteristics determined by [facility]. It has not been cleared or approved by the Food and Drug Administration. Israel Fermin MD LAB BLOOD ORDERABLES Final Result Performing Organization Address City/Va Hospital/ZIP Co de Phone Number [facility] [address] [place] [phone] * Microscopic Examination (06/04/2024 11:01 AM EDT) WBC, Urine None seen 0 - 5 /hpf [facility] RBC, Urine 0-2 0 - 2 /hpf [facility] Squamous Epithelial, Urine None seen 0 - 10 /hpf [facility] Casts None seen None seen /lpf [facility] Bacteria, Urine None seen None seen/Few [facility] 06/04/2024 11:0 1 AM EDT 06/04/2024 Israel Fermin MD LAB MICROBIOLOGY - GENERAL ORDERABLES Final Result Performing Organization Address City/Va Hospital/[facility] Co de Phone Number [facility] [address] [place] [address] * Iron Panel (Fe, TIBC, TSAT) (06/04/2024 11:01 AM EDT) TIBC 252 250 - 450 ug/dL [facility] UIBC 189 131 - 425 ug/dL [facility] Iron 63 27 - 159 ug/dL [facility] Iron Saturation (TSat) 25 15 - 55 % [facility] Blood (Blood, Venous) 06/04/2024 11:01 AM EDT 06/04/2024 Israel Fermin MD LAB BLOOD ORDERABLES Final Result Performing Organization Address [facility] de Phone Number [facility] [address] [place] [address] * (ABNORMAL) Urine Albumin / Creatinine Ratio (06/04/2024 11:01 AM EDT) Creatinine, Ur 85.3 Not Estab. mg/dL [facility] Albumin, Urine 1,446.7 Not Estab. ug/mL [facility] Comment: Results confirmed on dilution. Albumin/Creatin ine Ratio 1,696(H) 0 - 29 mg/g creat [facility] Comment: ? Normal: ?0 - ??29 ? Moderately increased: 30 - 300 ? Severely increased: ? >300 Urine (Urine, Clean Catch) 06/04/2024 11:01 AM EDT 06/04/2024 Israel Fermin MD LAB URINE ORDERABLES Final Result [facility] Car[address] Montoya [address] [place] [address] * (ABNORMAL) Vitamin D 25 Hydroxy (06/04/2024 11:01 AM EDT) Vitamin D, 25-OH, Total 29.7(L) 30.0 - 100.0 ng/mL [facility] Jan Comment: Vitamin D deficiency has been defined by the [place] of Medicine and an Endocrine Society practice guideline as a level of serum 25-OH vitamin D less than 20 ng/mL (1,2). The Endocrine Society went on to further define vitamin D insufficiency as a level between 21 and 29 ng/mL (2). 1. IOM ([place] of Medicine). 2010. Dietary reference ?? intakes for calcium and D. [place]: The ?? National Academies Press. 2. Leatha MF, Mana NC, Quinton RUIZ, et al. ?? Evaluation, treatment, and prevention of vitamin D ?? deficiency: an Endocrine Society clinical practice ?? guideline. JCEM. 2010; 96(7):1911-30. Blood (Blood, Venous) 06/04/2024 11:01 AM EDT 06/04/2024 Israel Fermin MD LAB BLOOD ORDERABLES Final Result [facility] [address] [place] [address] * (ABNORMAL) CBC and Differential (06/04/2024 11:01 AM EDT) WBC 3.8 3.4 - 10.8 x10E3/uL [facility] RBC 3.35(L) 3.77 - 5.28 x10E6/uL [facility] Hemoglobin 10.1(L) 11.1 - 15.9 g/dL [facility] Hematocrit 30.8(L) 34.0 - 46.6 % [facility] MCV 92 79 - 97 fL [facility] MCH 30.1 26.6 - 33.0 pg [facility] MCHC 32.8 31.5 - 35.7 g/dL [facility] RDW 12.7 11.7 - 15.4 % [facility] Platelets 248 150 - 450 x10E3/uL [facility] Neutrophils Relative 50 Not Estab. % [facility] Lymphocytes Relative 39 Not Estab. % [facility] Monocytes 6 Not Estab. % [facility] Eosinophils Relative 4 Not Estab. % [facility] Basophils Relative 1 Not Estab. % [facility] Neutrophils Absolute 1.9 1.4 - 7.0 x10E3/uL [facility] Lymphocytes Absolute 1.5 0.7 - 3.1 x10E3/uL [facility] Monocytes Absolute 0.2 0.1 - 0.9 x10E3/uL [facility] Eosinophils Absolute 0.2 0.0 - 0.4 x10E3/uL [facility] Basophils Absolute 0.0 0.0 - 0.2 x10E3/uL [facility] Immature Granulocytes 0 Not Estab. % [facility] Immature Grans (Absolute) 0.0 0.0 - 0.1 x10E3/uL [facility] Blood (Blood, Venous) 06/04/2024 11:01 AM EDT 06/04/2024 Israel Fermin MD LAB BLOOD ORDERABLES Final Result Performing Organization Address City/Va Hospital/ZIP Co de Phone Number [facility] [address] [place] [address] * Uric Acid (06/04/2024 11:01 AM EDT) Uric Acid 6.5 3.0 - 7.2 mg/dL [facility] Comment:Therapeutic target f or gout patients: <6.0 Blood (Blood, Venous) 06/04/2024 11:01 AM EDT 06/04/2024 Israel Fermin MD LAB BLOOD ORDERABLES Final Result [facility] [address] [place] [address] * ALT (06/04/2024 11:01 AM EDT) ALT (SGPT) 13 0 - 32 IU/L [facility] Blood (Blood, Venous) 06/04/2024 11:01 AM EDT 06/04/2024 Israel Fermin MD LAB BLOOD ORDERABLES Final Result Performing Organization Address [facility] Co de Phone Number [facility] [address] [place] [address] * AST (06/04/2024 11:01 AM EDT) AST (SGOT) 17 0 - 40 IU/L [facility] Blood (Blood, Venous) 06/04/2024 11:01 AM EDT 06/04/2024 Israel Fermin MD LAB BLOOD ORDERABLES Final Result Performing Organization Address [facility] de Phone Number [facility] [address] [place] [address] * (ABNORMAL) PTH, Intact (06/04/2024 11:01 AM EDT) PTH 148(H) 15 - 65 pg/mL [facility] Blood (Blood, Venous) 06/04/2024 11:01 AM EDT 06/04/2024 Israel Fermin MD LAB BLOOD ORDERABLES Final Result Performing Organization Address [facility] Co de Phone Number [facility] [address] [place] [address] * Magnesium (06/04/2024 11:01 AM EDT) Magnesium 2.1 1.6 - 2.3 mg/dL [facility] Blood (Blood, Venous) 06/04/2024 11:01 AM EDT 06/04/2024 Israel Fermin MD LAB BLOOD ORDERABLES Final Result Performing Organization Address City/[facility] Hospital/[facility] Co de Phone Number [facility] [address] [place] [address] * Ferritin (06/04/2024 11:01 AM EDT) Pathologist [facility] Ferritin 65 15 - 150 ng/mL [facility] Blood (Blood, Venous) 06/04/2024 11:01 AM EDT 06/04/2024 Israel Fermin MD LAB BLOOD ORDERABLES Final Result Performing Organization Address City/Va Hospital/ZIP Co de Phone Number [facility] [address] [place] [address] * CK (06/04/2024 11:01 AM EDT) Pathologist [facility] Creatine Kinase (CK/CPK) 72 32 - 182 U/L [facility] Blood (Blood, Venous) 06/04/2024 11:01 AM EDT 06/04/2024 Israel Fermin MD LAB BLOOD ORDERABLES Final Result Performing Organization Address City/[facility] Hospital/ZIP Co de Phone Number [facility] [address] [place] [address] * (ABNORMAL) Renal Function Panel (06/04/2024 11:01 AM EDT) Pathologist [facility] Glucose 152(H) 70 - 99 mg/dL [facility] BUN 30(H) 8 - 27 mg/dL [facility] Creatinine 1.29(H) 0.57 - 1.00 mg/dL [facility] eGFR CKD-EPI CR 2020 48(L) >59 mL/min/1.7 3 [facility] BUN/Creatinine Ratio 12 - 28 [facility] Sodium 142 134 - 144 mmol/L [facility] Potassium 4.2 3.5 - 5.2 mmol/L [facility] Chloride 109(H) 96 - 106 mmol/L [facility] Bicarbonate (CO2) 18(L) 20 - 29 mmol/L [facility] Calcium 8.9 8.7 - 10.3 mg/dL [facility] Albumin 3.9 3.8 - 4.9 g/dL [facility] Phosphorus 3.4 3.0 - 4.3 mg/dL [facility] Blood (Blood, Venous) 06/04/2024 11:01 AM EDT 06/04/2024 Israel Fermin MD LAB BLOOD ORDERABLES Final Result [facility] [address] [place] [address] * (ABNORMAL) Lipid panel (06/04/2024 11:01 AM EDT) Cholesterol 214(H) 100 - 199 mg/dL [facility] Triglycerides 86 0 - 149 mg/dL [facility] HDL 72 >39 mg/dL [facility] VLDL Cholesterol Mayank 15 5 - 40 mg/dL [facility] LDL Calculated 127(H) 0 - 99 mg/dL [facility] Blood (Blood, Venous) 06/04/2024 11:01 AM EDT 06/04/2024 Israel Fermin MD LAB BLOOD ORDERABLES Final Result [facility] [address] [place] [address] from Last 3 Months Insurance [facility] [employer] Care Teams Grouter Helper Relationship Specialty Start Date End Date Ernst Andre MD [address] [place], [place] PCP - General 12/17/18
--- OUTSIDE RECORDS SUMMARY | 2024-07-01 11:02 | XMS_ITS | Encounter Summary ---
Author Organization [facility] [place], Address [address] [place] [address] Phone Care Team Providers Care Cushion Maker Name Role Phone Ernst Andre MD Primary Care Provider [phone] Reason for Visit * Reason Comments Med Refill Encounter Details Date Type Department Care Team (Late st Contact Info) Description 09/07/2021 Refill [facility] [address] [place] [phone] Israel Fermin MD [address] [facility] [place] [address] Social History Tobacco Use Types [...] Office Visit [facility] [address] [place] [phone] Israel Fermin MD [address] [place] [address] documented as of this encounter Visit Diagnoses Not on filedocumented in this encounter Care Teams Cushion Maker Relationship Specialty Start Date End Date Ernst Andre MD [address] [place], [place] PCP - General 12/17/18 documented as of this encounter
--- OUTSIDE RECORDS SUMMARY | 2024-07-01 11:02 | XMS_ITS | Encounter Summary ---
Author Organization [facility] Address [address] [place] [address] Phone Care Team Providers Care Barrel Cap Setter Name Role Phone Ernst Andre MD Primary Care Provider [phone] Encounter Details Date Type Department Care Team (Late Contact Info) Description 05/17/2022 Documentation Only [facility] [place], [address] [place] [address] Maricel Graves [address] [place] [phone] Social History Tobacco Use Types Packs/Day [...] Visit [facility] [address] [place] [address] Israel Fermin MD [address] [place] [address] [place] [address] documented as of this encounter Visit Diagnoses Not on filedocumented in this encounter Care Teams Barrel Cap Setter Relationship Specialty Start Date End Date Ernst Andre MD [address] [place], [place] PCP - General 12/17/18 documented as of this encounter
[2024-07-01 11:36] LABS: Free T4 (Free Thyroxine) 1.12 ng/dL (0.71-1.85); TSH reflex Free T4 1.69 uIU/mL (0.32-4.0)
[2024-07-02 04:54] LABS: Follicle Stimulating Hormone 121.8 mIU/mL; Lutenizing Hormone 42.3 mIU/mL
[2024-07-06 00:48] LABS: Estrogen 60 pg/mL
== END 2024-07-01 08:58 | disposition home or self-care (01) ==
LOC: HO.LAB 08:57
DX: G62.9 Polyneuropathy, unspecified (principal); F32.9 Major depressive disorder, single episode, unspecified; I10 Essential (primary) hypertension; M54.9 Dorsalgia, unspecified; G47.10 Hypersomnia, unspecified; F41.9 Anxiety disorder, unspecified; Z94.0 Kidney transplant status; Z00.00 Encounter for general adult medical examination without abnormal findings
CPT/HCPCS: 36415; 82672; 83001; 83002; 84439; 84443; 96127; 99212

== ENCOUNTER 2024-07-01 08:57 | Outpatient (AMB) | payer OTHER, SELFPAY ==
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
[2024-07-01 09:06] VITALS: BP 140/90; PULSE 78; TEMP 36.2; O2SAT 98; BMI 26.2
--- OUTSIDE RECORDS SUMMARY | 2024-07-01 09:27 | XMS_ITS | Encounter Summary ---
Author Organization [facility], Address [address] [place] [address] Phone Care Team Providers Care Dessert Cup Machine Feeder Name Role Phone Ernst Andre MD Primary Care Provider [phone] Encounter Details Date Type Department Care Team (Late st Contact Info) Description 05/02/2021 Documentation Only [facility], [address] [place] [phone] Israel Fermin MD [address] [place] [address] Social History Tobacco Use Types Packs/Day Years Used Date Smoking Tobacco: Never Alcohol Use Standard Drinks/Week Comments Never 0 (1 standard drink = 0.6 oz pur e alcohol) AUDIT-C Answer Date Recorded Q1: How often do you have a drink containing alc ohol? Never 06/13/2019 Average Number of Drinks Not on file 020 Frequency of Binge Drinking Not on file 02/2019 Comments Unknown Sex and Gender Information Value Date Recorded Sex Assigned at Not on file Legal Sex Female 4:34 PM EST Gender Identity Not on file Sexual Orientation Not on file COVID-19 Exposure Response Date Recorded In the last month, have you been in contact with someone who was confirmed or suspected to have Coronavirus / COVID-19? No / Unsure 04/25/2021 5:42 PM EDT documented as of this encounter Plan of Treatment Upcoming Encounters Date Type Department Care Team (Late st Contact Info) Description 07/09/2024 10:15 AM EDT Office Visit [facility] [address] [place] [address] Israel Fermin MD [address] [place] [address] [place] [phone] documented as of this encounter Visit Diagnoses Not on filedocumented in this encounter Care Teams Dessert Cup Machine Feeder Relationship Specialty Start Date End Date Ernst Andre MD [address] [place], [place] PCP - General 12/17/18 documented as of this encounter
--- OUTSIDE RECORDS SUMMARY | 2024-07-01 09:27 | XMS_ITS | Encounter Summary ---
Author Organization [facility] Address [address] [place] [address] Phone Care Team Providers Care Steam Clothes Press Operator Name Role Phone Ernst Adnre MD Primary Care Provider [phone] Encounter Details Date Type Department Care Team (Late Contact Info) Description 06/06/2023 Documentation Only [facility], [address] [place] [place] [phone] Maricel Graves [address] [place] [phone] Social History Tobacco Use Types Packs/Day Years [...] on file Sexual Orientation Not on file documented as of this encounter Plan of Treatment Upcoming Encounters Date Type Department Care Team (Late Contact Info) Description 07/09/2024 10:15 AM EDT Office Visit [facility] [address] [place] [phone] Israel Fermin MD [address] [place] [address] [place] [address] documented as of this encounter Visit Diagnoses Not on filedocumented in this encounter Care Teams Steam Clothes Press Operator Relationship Specialty Start Date End Date Ernst Andre MD [address] [place], [place] PCP - General 12/17/18 documented as of this encounter
--- OUTSIDE RECORDS SUMMARY | 2024-07-01 09:27 | XMS_ITS | Encounter Summary ---
Author Organization [facility], Address [address] [place] [address] Phone Care Team Providers Care Passementerie Worker Name Role Phone Ernst Andre MD Primary Care Provider [phone] Encounter Details Date Type Department Care Team (Late st Contact Info) Description 03/03/2021 Documentation Only [facility], [address] [place] [phone] [place], [place] [address] [place] [address] Social History Tobacco Use Types Packs/Day [...] Visit [facility] [address] [place] [phone] Israel Fermin MD [address] [place] [address] documented as of this encounter Visit Diagnoses Not on filedocumented in this encounter Care Teams Passementerie Worker Relationship Specialty Start Date End Date Ernst Andre MD [address] [place], [place] PCP - General 12/17/18 documented as of this encounter
--- OUTSIDE RECORDS SUMMARY | 2024-07-01 09:27 | XMS_ITS | Encounter Summary ---
Author Organization [facility], Address [address] [place] [address] Phone Care Team Providers Care Sociology Faculty Member Name Role Phone Ernst Andre MD Primary Care Provider [phone] Reason for Visit * Reason Comments Med Refill Encounter Details Date Type Department Care Team (Late st Contact Info) Description 09/07/2021 Refill [facility] [address] [place] [phone] Israel Fermin MD [address] [place] [address] Social History Tobacco Use Types [...] Office Visit [facility] [address] [place] [phone] Israel Fermin MD [address] [place] [address] documented as of this encounter Visit Diagnoses Not on filedocumented in this encounter Care Teams Sociology Faculty Member Relationship Specialty Start Date End Date Ernst Andre MD [address] [place], [place] PCP - General 12/17/18 documented as of this encounter
--- OUTSIDE RECORDS SUMMARY | 2024-07-01 09:27 | XMS_ITS | Encounter Summary ---
Author Organization [facility] Address [address] [place] [address] Phone Care Team Providers Care Oral Therapist Name Role Phone Ernst Andre MD Primary Care Provider [phone] Encounter Details Date Type Department Care Team (Late Contact Info) Description 06/07/2023 Documentation Only [facility] [place], [address] [place] [phone] Maricel Graves [address] [place] [phone] Social History Tobacco Use Types Packs/Day [...] Visit [facility] [address] [place] [phone] Israel Fermin MD [address] [place] [address] [place] [address] documented as of this encounter Visit Diagnoses Not on filedocumented in this encounter Care Teams Oral Therapist Relationship Specialty Start Date End Date Ernst Andre MD [address] [place], [place] PCP - General 12/17/18 documented as of this encounter
--- OUTSIDE RECORDS SUMMARY | 2024-07-01 09:27 | XMS_ITS | Encounter Summary ---
Author Organization [facility], Address [address] [place] [address] Phone Care Team Providers Care Director Ship Name Role Phone Ernst Andre MD Primary Care Provider [phone] Reason for Visit * Reason Comments Med Refill Encounter Details Date Type Department Care Team (Late st Contact Info) Description 04/21/2021 [facility]ill [facility] [address] [place] [address] Donny Pink PA Social History Tobacco Use Types Packs/Day Years [...] have Coronavirus / COVID-19? No / Unsure 03/27/2021 6:09 AM EST documented as of this encounter Plan of Treatment Upcoming Encounters Date Type Department Care Team (Late st Contact Info) Description 07/09/2024 10:15 AM EDT Office Visit [facility] [address] [place] [address] Israel Fermin MD [address] [place] [address] documented as of this encounter Visit Diagnoses Not on filedocumented in this encounter Care Teams Director Ship Relationship Specialty Start Date End Date Ernst Andre MD [address] [place], [place] PCP - General 12/17/18 documented as of this encounter
--- OUTSIDE RECORDS SUMMARY | 2024-07-01 09:28 | XMS_ITS | Encounter Summary ---
Author Organization [facility] Address [address] [place] [address] Phone Care Team Providers Care Assistant Film Editor Name Role Phone Ernst Andre MD Primary Care Provider [phone] Encounter Details Date Type Department Care Team (Late Contact Info) Description 05/17/2022 Documentation Only [facility] [place], [address] [place] [place] [phone] Maricel Graves [address] [place] [phone] Social History Tobacco Use Types Packs/Day [...] Visit [facility] [address] [place] [phone] Israel Fermin MD [address] [place] [address] [place] [address] documented as of this encounter Visit Diagnoses Not on filedocumented in this encounter Care Teams Assistant Film Editor Relationship Specialty Start Date End Date Ernst Andre MD [address] [place], [place] PCP - General 12/17/18 documented as of this encounter
--- OUTSIDE RECORDS SUMMARY | 2024-07-01 09:28 | XMS_ITS | Clinical Summary ---
Author Organization [facility], Address [address] [place] [address] [place] [address] Phone Care Team Providers Care Retail Stock Clerk Name Role Phone Ernst Andre MD Primary Care Provider [phone] Allergies Active Allergy Reactions Criticality Noted Date Comments Buspirone 02/24/2021 panic attack Soybean-Containing Drug Products Medications mycophenolate (MYFORTIC) 180 MG EC tablet Take 3 tablets by mouth 2 (two) times a day Active clonazePAM (KlonoPIN) 1 MG tablet 0 Active buPROPion XL (WELLBUTRIN XL) 150 MG 24 hr tablet Take 150 mg by mouth 1 (one) time each day 1 Active buPROPion XL (WELLBUTRIN XL) 300 MG 24 hr tablet Take 300 mg by mouth 1 (one) time each day 1 Active amoxicillin (AMOXIL) 500 MG tablet TAKE 4 TABLETS BY MOUTH 1 HOUR PRIOR TO DENTAL WORK 4 tablet 3 Active PARoxetine (PAXIL) 20 MG tablet 4 Active rosuvastatin (CRESTOR) 5 MG tablet Take 1 tablet (5 mg total) by mouth 1 (one) time each day 90 tablet 3 4 Active omeprazole (PriLOSEC) [address] capsule TAKE 1 CAPSULE BY MOUTH EVERY DAY 90 capsule 3 4 Active Belatacept (Nulojix) 250 MG reconstituted solution Infuse 5 mg/kg into a venous catheter every 28 (twenty-eight ) days Patients weight as of 11/06/23 is 73.6 kg. 2 each 11 4 Active amLODIPine (NORVASC) 5 MG tablet Take 1 tablet (5 mg total) by mouth 1 (one) time each day 30 tablet 11 5 03/26/19 26 Active carvedilol (Coreg) 12.5 MG tablet Take 1 tablet (12.5 mg total) by mouth in the morning and 1 tablet (12.5 mg total) in the evening. Take with meals. 180 tablet 3 5 03/26/19 26 Active hydroCHLOROthiazid e 25 MG tablet Take 1 tablet (25 mg total) by mouth 1 (one) time each day 90 tablet 3 5 05/24/19 26 Active Active Problems Problem Noted Date Diagnosed Date Peripheral neuropathy 03/29/2022 Stage 3a chronic kidney disease 08/20/2019 Overview (02/16/2020): Update for Diagnosis Load Gastroesophageal reflux disease 04/30/2019 Chronic kidney disease due to hypertension 03/07 History of immunosuppressive therapy 03/07/2019 Hyperlipidemia 03/07/2019 History of renal transplant 03/07/2019 Kidney replaced by transplant 02/10/2019 Long-term current use of immunosuppressive drug 02/10/2019 Resolved Problems Problem Noted Date Diagnosed Date Resolved Date Right upper quadrant pain 11/12/2019 Depressive disorder 04/30/2019 05/26/19 21 Chronic kidney disease stage 2 03/07/2019 12/11/2019 Essential hypertension 03/07/201907/19 Anxiety disorder 04/22/2021 Overview (03/31/2020): panic attacks Encounters Date Type Department Care Team Description 05/23/2024 11:00 AM EDT Office Visit [facility] [address] [place] [address] Israel Fermin MD History of renal transplant [Z94.0] (Primary Dx); History of immunosuppressive therapy [Z92.25]; Hypertension; Stage 3a chronic kidney disease (HCC) [N18.31] 05/07/2024 Telephone [facility] [address] [place] [address] Sonia Hope, RN leaked Nulojix infusion 05/01/24 from Last 3 Months Immunizations Immunization Administration Dates Next Due Hep B, Unspecified 10/19/2006,05/24/2006, 007 Influenza Split High Dose Pr eservative Free IM 12/29/2014 Influenza, MDCK, PF, Quadrivalent 10/26/2018 Influenza, MDCK, Quadrivalen t, with preservative 11/11/2020,11/12/2019 Influenza, Unspecified 03/08/2011,12/02/2009 Pfizer SARS-COV-2 03/02/2021,,05/18/2020,04/27 Pneumococcal Polysaccharide 09/24/2013, 0 Family History Medical History Relation Comments Autosomal Dominant Polycystic Kidney Disease Fat her Kidney disease Father Relation Status Comments Father Mother Alive Social History Tobacco Use Types Packs/Day Years [...] on file Sexual Orientation Not on file Last Filed Vital Signs Vital Sign Reading Time Taken Comments Blood Pressure 142/76 05/23/2024 11:28 AM EDT Pulse 88 03/26/2024 9:38 AM EST Temperature 36.6 ??C (97.8 ??F) 11/18/2019 1:23 PM ED T Respiratory Rate 12 06/13/2019 10:54 AM EDT Oxygen Saturation 97% 11/18/2019 1:23 PM EDT Inhaled Oxygen Concentration - - Weight 77 kg (169 lb 11.2 oz) 05/23/2024 11:28 A M EDT Height 170.2 cm (5' 7 ) 11/06/2023 10:53 AM EDT Body Mass Index 26.58 11/06/2023 10:53 AM EDT Plan of Treatment Upcoming Encounters Date Type Department Care Team (Late st Contact Info) Description 07/09/2024 10:15 AM EDT Office Visit [facility] [address] [place] [address] Israel Fermin MD [address] [place] [address] [place] [phone] Health Maintenance Due Date Last Done Comments Breast Cancer Screening 1965 Pneumococcal Vaccine: 50+ Years (3 of 3 - PCV) 09/24/2014 09/24/2013, 12/03/2009 Colonoscopy (Post-Transplant Patient) 09/24/2019 Mammogram (Post-Transplant Patient) 09/24/2019 Pelvic Exam (Post-Transplant Patient) 09/24/2019 Influenza Vaccine (Season Ended) 2024 11/11/2020, 11/12/2019, 10/26/2018, Additional history exists Hepatitis B Vaccine Aged Out 10/19/2006, 05/24/2006, 04/19/2006 No longer eligible based on patient's age to complete this topic Pneumococcal Vaccine: Peds (0 to 5 Years) and At-Risk Patients (6 to 49 Years) Discontinued 09/24/2013, 12/03/2009 Procedures Procedure Name Priority Date/Time Associated Diagnosis Comments URINALYSIS, COMPLETE Routine 06/04/2024 11:01 AM EDT History of renal transplant Essential (primary) hypertension History of immunosuppressive therapy Kidney replaced by transplant Vitamin D deficiency, not otherwise specified Chronic gout with tophus, not otherwise specified Other hyperlipidemia Hypomagnesemia Other iron deficiency anemia Other specified hypoparathyroidism (HCC) Poor glycemic control Albuminuria, not otherwise specified URINE ALBUMIN / CREATININE RATIO Routine 06/04/2024 11:01 AM EDT History of renal transplant Essential (primary) hypertension History of immunosuppressive therapy Kidney replaced by transplant Vitamin D deficiency, not otherwise specified Chronic gout with tophus, not otherwise specified Other hyperlipidemia Hypomagnesemia Other iron deficiency anemia Other specified hypoparathyroidism (HCC) Poor glycemic control Albuminuria, not otherwise specified CREATINE KINASE Routine 06/04/2024 11:01 AM EDT History of renal transplant Essential (primary) hypertension History of immunosuppressive therapy Kidney replaced by transplant Vitamin D deficiency, not otherwise specified Chronic gout with tophus, not otherwise specified Other hyperlipidemia Hypomagnesemia Other iron deficiency anemia Other specified hypoparathyroidism (HCC) Poor glycemic control Albuminuria, not otherwise specified AST Routine 06/04/2024 11:01 AM EDT History of renal transplant Essential (primary) hypertension History of immunosuppressive therapy Kidney replaced by transplant Vitamin D deficiency, not otherwise specified Chronic gout with tophus, not otherwise specified Other hyperlipidemia Hypomagnesemia Other iron deficiency anemia Other specified hypoparathyroidism (HCC) Poor glycemic control Albuminuria, not otherwise specified ALT Routine 06/04/2024 11:01 AM EDT History of renal transplant Essential (primary) hypertension History of immunosuppressive therapy Kidney replaced by transplant Vitamin D deficiency, not otherwise specified Chronic gout with tophus, not otherwise specified Other hyperlipidemia Hypomagnesemia Other iron deficiency anemia Other specified hypoparathyroidism (HCC) Poor glycemic control Albuminuria, not otherwise specified PTH, INTACT Routine 06/04/2024 11:01 AM EDT History of renal transplant Essential (primary) hypertension History of immunosuppressive therapy Kidney replaced by transplant Vitamin D deficiency, not otherwise specified Chronic gout with tophus, not otherwise specified Other hyperlipidemia Hypomagnesemia Other iron deficiency anemia Other specified hypoparathyroidism (HCC) Poor glycemic control Albuminuria, not otherwise specified IRON PANEL (FE, TIBC, TSAT) Routine 06/04/2024 11:01 AM EDT History of renal transplant Essential (primary) hypertension History of immunosuppressive therapy Kidney replaced by transplant Vitamin D deficiency, not otherwise specified Chronic gout with tophus, not otherwise specified Other hyperlipidemia Hypomagnesemia Other iron deficiency anemia Other specified hypoparathyroidism (HCC) Poor glycemic control Albuminuria, not otherwise specified FERRITIN Routine 06/04/2024 11:01 AM EDT History of renal transplant Essential (primary) hypertension History of immunosuppressive therapy Kidney replaced by transplant Vitamin D deficiency, not otherwise specified Chronic gout with tophus, not otherwise specified Other hyperlipidemia Hypomagnesemia Other iron deficiency anemia Other specified hypoparathyroidism (HCC) Poor glycemic control Albuminuria, not otherwise specified MAGNESIUM Routine 06/04/2024 11:01 AM EDT History of renal transplant Essential (primary) hypertension History of immunosuppressive therapy Kidney replaced by transplant Vitamin D deficiency, not otherwise specified Chronic gout with tophus, not otherwise specified Other hyperlipidemia Hypomagnesemia Other iron deficiency anemia Other specified hypoparathyroidism (HCC) Poor glycemic control Albuminuria, not otherwise specified LIPID PANEL Routine 06/04/2024 11:01 AM EDT History of renal transplant Essential (primary) hypertension History of immunosuppressive therapy Kidney replaced by transplant Vitamin D deficiency, not otherwise specified Chronic gout with tophus, not otherwise specified Other hyperlipidemia Hypomagnesemia Other iron deficiency anemia Other specified hypoparathyroidism (HCC) Poor glycemic control Albuminuria, not otherwise specified URIC ACID Routine 06/04/2024 11:01 AM EDT History of renal transplant Essential (primary) hypertension History of immunosuppressive therapy Kidney replaced by transplant Vitamin D deficiency, not otherwise specified Chronic gout with tophus, not otherwise specified Other hyperlipidemia Hypomagnesemia Other iron deficiency anemia Other specified hypoparathyroidism (HCC) Poor glycemic control Albuminuria, not otherwise specified VITAMIN D 25 HYDROXY Routine 06/04/2024 11:01 AM EDT History of renal transplant Essential (primary) hypertension History of immunosuppressive therapy Kidney replaced by transplant Vitamin D deficiency, not otherwise specified Chronic gout with tophus, not otherwise specified Other hyperlipidemia Hypomagnesemia Other iron deficiency anemia Other specified hypoparathyroidism (HCC) Poor glycemic control Albuminuria, not otherwise specified CBC AND DIFFERENTIAL Routine 06/04/2024 11:01 AM EDT History of renal transplant Essential (primary) hypertension History of immunosuppressive therapy Kidney replaced by transplant Vitamin D deficiency, not otherwise specified Chronic gout with tophus, not otherwise specified Other hyperlipidemia Hypomagnesemia Other iron deficiency anemia Other specified hypoparathyroidism (HCC) Poor glycemic control Albuminuria, not otherwise specified RENAL FUNCTION PANEL Routine 06/04/2024 11:01 AM EDT History of renal transplant Essential (primary) hypertension History of immunosuppressive therapy Kidney replaced by transplant Vitamin D deficiency, not otherwise specified Chronic gout with tophus, not otherwise specified Other hyperlipidemia Hypomagnesemia Other iron deficiency anemia Other specified hypoparathyroidism (HCC) Poor glycemic control Albuminuria, not otherwise specified MYCOPHENOLIC ACID AND METABO. Routine 06/04/2024 11:01 AM EDT History of renal transplant Essential (primary) hypertension History of immunosuppressive therapy Kidney replaced by transplant Vitamin D deficiency, not otherwise specified Chronic gout with tophus, not otherwise specified Other hyperlipidemia Hypomagnesemia Other iron deficiency anemia Other specified hypoparathyroidism (HCC) Poor glycemic control Albuminuria, not otherwise specified MICROSCOPIC EXAMINATION - DO NOT USE Routine 06/04/2024 11:01 AM EDT from Last 3 Months Results * (ABNORMAL) Urinalysis, Complete w/reflex to Culture (06/04/2024 11:01 AM EDT) Specific [place], Urine 1.020 1.005 - 1.030 [facility] pH Urine 6.5 5.0 - 7.5 [facility] [phone] Color, Urine Yellow Yellow [facility] [phone] Appearance Urine Clear Clear [facility] WBC Esterase Urine Negative Negative [facility] Protein, Ur 3+(A) Negative/Tra ce [facility] Glucose, Ur Negative Negative [facility] Ketones, Urine Negative Negative [facility] Blood Urine Negative Negative [facility] Bilirubin Urine Negative Negative [facility] Urobilinogen Urine 0.2 0.2 - 1.0 mg/dL [facility] Nitrite, Urine Negative Negative [facility] Microscopic Examination See below: [facility] [phone] Comment:Microscopic was deyanira cated and was performed. URINALYSIS REFLEX Comment [facility] [phone] Comment:This specimen will n ot reflex to a Urine Culture. Urine (Urine, Clean Catch) 06/04/2024 11:01 AM EDT 06/04/2024 Israel Fermin MD LAB URINE ORDERABLES Final Result Performing Organization Address City/[facility]/ZIP Co de Phone Number [facility] [address] [place] [address] * Mycophenolic Acid and Metabo. (06/04/2024 11:01 AM EDT) Mycophenolic Acid 1.5 1.0 - 3.5 ug/mL [facility] Mycophenolic Acid Glucuronide 18 15 - 125 ug/mL [facility] Blood (Blood, Venous) 06/04/2024 11:01 AM EDT 06/04/2024 Narrative [facility] - 06/07/2024 11:06 PM EDT Test(s) 736752-[id number] Acid; 173829- Mycophenolic Acid Glucuronide was developed and its performance characteristics determined by [facility]. It has not been cleared or approved by the Food and Drug Administration. Israel Fermin MD LAB BLOOD ORDERABLES Final Result Performing Organization Address City/[facility]/ZIP Co de Phone Number [facility] [address] [place] [phone] * Microscopic Examination (06/04/2024 11:01 AM EDT) WBC, Urine None seen 0 - 5 /hpf [facility] RBC, Urine 0-2 0 - 2 /hpf [facility] Squamous Epithelial, Urine None seen 0 - 10 /hpf [facility] Casts None seen None seen /lpf [facility] Bacteria, Urine None seen None seen/Few [facility] 06/04/2024 11:0 1 AM EDT 06/04/2024 Israel Fermin MD LAB MICROBIOLOGY - GENERAL ORDERABLES Final Result Performing Organization Address City/[facility] Co de Phone Number [facility] [address] [place] [address] * Iron Panel (Fe, TIBC, TSAT) (06/04/2024 11:01 AM EDT) TIBC 252 250 - 450 ug/dL [facility] UIBC 189 131 - 425 ug/dL [facility] Iron 63 27 - 159 ug/dL [facility] Iron Saturation (TSat) 25 15 - 55 % [facility] Blood (Blood, Venous) 06/04/2024 11:01 AM EDT 06/04/2024 Israel Fermin MD LAB BLOOD ORDERABLES Final Result Performing Organization Address [facility] de Phone Number [facility] [address] [place] [address] * (ABNORMAL) Urine Albumin / Creatinine Ratio (06/04/2024 11:01 AM EDT) Creatinine, Ur 85.3 Not Estab. mg/dL [facility] Albumin, Urine 1,446.7 Not Estab. ug/mL [facility] Comment: Results confirmed on dilution. Albumin/Creatin ine Ratio 1,696(H) 0 - 29 mg/g creat [facility] Comment: ? Normal: ?0 - ??29 ? Moderately increased: 30 - 300 ? Severely increased: ? >300 Urine (Urine, Clean Catch) 06/04/2024 11:01 AM EDT 06/04/2024 Israel Fermin MD LAB URINE ORDERABLES Final Result [facility] [address] [place] [address] * (ABNORMAL) Vitamin D 25 Hydroxy (06/04/2024 11:01 AM EDT) Vitamin D, 25-OH, Total 29.7(L) 30.0 - 100.0 ng/mL [facility] Comment: Vitamin D deficiency has been defined by the [place] of Medicine and an Endocrine Society practice guideline as a level of serum 25-OH vitamin D less than 20 ng/mL (1,2). The Endocrine Society went on to further define vitamin D insufficiency as a level between 21 and 29 ng/mL (2). 1. IOM ([place] of Medicine). 2010. Dietary reference ?? intakes for calcium and D. [place]: The ?? National Academies Press. 2. Leatha MF, aMna NC, Quinton RUIZ, et al. ?? Evaluation, treatment, and prevention of vitamin D ?? deficiency: an Endocrine Society clinical practice ?? guideline. JCEM. 2010; 96(7):1911-30. Blood (Blood, Venous) 06/04/2024 11:01 AM EDT 06/04/2024 Israel Fermin MD LAB BLOOD ORDERABLES Final Result [facility] [address] [place] [address] * (ABNORMAL) CBC and Differential (06/04/2024 11:01 AM EDT) WBC 3.8 3.4 - 10.8 x10E3/uL [facility] RBC 3.35(L) 3.77 - 5.28 x10E6/uL [facility] Hemoglobin 10.1(L) 11.1 - 15.9 g/dL [facility] Hematocrit 30.8(L) 34.0 - 46.6 % [facility] MCV 92 79 - 97 fL [facility] MCH 30.1 26.6 - 33.0 pg [facility] MCHC 32.8 31.5 - 35.7 g/dL [facility] RDW 12.7 11.7 - 15.4 % [facility] Platelets 248 150 - 450 x10E3/uL [facility] Neutrophils Relative 50 Not Estab. % [facility] Lymphocytes Relative 39 Not Estab. % [facility] Monocytes 6 Not Estab. % [facility] Eosinophils Relative 4 Not Estab. % [facility] Basophils Relative 1 Not Estab. % [facility] Neutrophils Absolute 1.9 1.4 - 7.0 x10E3/uL [facility] Lymphocytes Absolute 1.5 0.7 - 3.1 x10E3/uL [facility] Monocytes Absolute 0.2 0.1 - 0.9 x10E3/uL [facility] Eosinophils Absolute 0.2 0.0 - 0.4 x10E3/uL [facility] Basophils Absolute 0.0 0.0 - 0.2 x10E3/uL [facility] Immature Granulocytes 0 Not Estab. % [facility] Immature Grans (Absolute) 0.0 0.0 - 0.1 x10E3/uL [facility] Blood (Blood, Venous) 06/04/2024 11:01 AM EDT 06/04/2024 Israel Fermin MD LAB BLOOD ORDERABLES Final Result Performing Organization Address City/[facility]/ZIP Co de Phone Number [facility] [address] [place] [address] * Uric Acid (06/04/2024 11:01 AM EDT) Uric Acid 6.5 3.0 - 7.2 mg/dL [facility] Comment:Therapeutic target f or gout patients: <6.0 Blood (Blood, Venous) 06/04/2024 11:01 AM EDT 06/04/2024 Israel Fermin MD LAB BLOOD ORDERABLES Final Result [facility] [address] [place] [address] * ALT (06/04/2024 11:01 AM EDT) ALT (SGPT) 13 0 - 32 IU/L [facility] Blood (Blood, Venous) 06/04/2024 11:01 AM EDT 06/04/2024 Israel Fermin MD LAB BLOOD ORDERABLES Final Result Performing Organization Address [facility] Co de Phone [facility] [address] [place] [address] * AST (06/04/2024 11:01 AM EDT) AST (SGOT) 17 0 - 40 IU/L [facility] Blood (Blood, Venous) 06/04/2024 11:01 AM EDT 06/04/2024 Israel Fermin MD LAB BLOOD ORDERABLES Final Result Performing Organization Address [facility] de Phone Number [facility] [address] [place] [address] * (ABNORMAL) PTH, Intact (06/04/2024 11:01 AM EDT) PTH 148(H) 15 - 65 pg/mL [facility] Blood (Blood, Venous) 06/04/2024 11:01 AM EDT 06/04/2024 Israel Fermin MD LAB BLOOD ORDERABLES Final Result Performing Organization Address [facility] Co de Phone Number [facility] [address] [place] [address] * Magnesium (06/04/2024 11:01 AM EDT) Magnesium 2.1 1.6 - 2.3 mg/dL [facility] Blood (Blood, Venous) 06/04/2024 11:01 AM EDT 06/04/2024 Israel Fermin MD LAB BLOOD ORDERABLES Final Result Performing Organization Address City/[facility] Co de Phone Number [facility] [address] [place] [address] * Ferritin (06/04/2024 11:01 AM EDT) Pathologist [facility] Ferritin 65 15 - 150 ng/mL [facility] Blood (Blood, Venous) 06/04/2024 11:01 AM EDT 06/04/2024 Israel Fermin MD LAB BLOOD ORDERABLES Final Result Performing Organization Address City/[facility]/ZIP Co de Phone Number [facility] [address] [place] [address] * CK (06/04/2024 11:01 AM EDT) Pathologist [facility] Creatine Kinase (CK/CPK) 72 32 - 182 U/L [facility] Blood (Blood, Venous) 06/04/2024 11:01 AM EDT 06/04/2024 Israel Fermin MD LAB BLOOD ORDERABLES Final Result Performing Organization Address City/[facility]/ZIP Co de Phone Number [facility] [address] [place] [address] * (ABNORMAL) Renal Function Panel (06/04/2024 11:01 AM EDT) Pathologist [facility] Glucose 152(H) 70 - 99 mg/dL [facility] BUN 30(H) 8 - 27 mg/dL [facility] Creatinine 1.29(H) 0.57 - 1.00 mg/dL [facility] eGFR CKD-EPI CR 2020 48(L) >59 mL/min/1.7 3 [facility] BUN/Creatinine Ratio 12 - 28 [facility] Sodium 142 134 - 144 mmol/L [facility] Potassium 4.2 3.5 - 5.2 mmol/L [facility] Chloride 109(H) 96 - 106 mmol/L [facility] Bicarbonate (CO2) 18(L) 20 - 29 mmol/L [facility] Calcium 8.9 8.7 - 10.3 mg/dL [facility] Albumin 3.9 3.8 - 4.9 g/dL [facility] Phosphorus 3.4 3.0 - 4.3 mg/dL [facility] Blood (Blood, Venous) 06/04/2024 11:01 AM EDT 06/04/2024 Israel Fermin MD LAB BLOOD ORDERABLES Final Result [facility] [address] [place] [address] * (ABNORMAL) Lipid panel (06/04/2024 11:01 AM EDT) Cholesterol 214(H) 100 - 199 mg/dL [facility] Triglycerides 86 0 - 149 mg/dL [facility] HDL 72 >39 mg/dL [facility] VLDL Cholesterol Mayank 15 5 - 40 mg/dL [facility] LDL Calculated 127(H) 0 - 99 mg/dL [facility] Blood (Blood, Venous) 06/04/2024 11:01 AM EDT 06/04/2024 Israel Fermin MD LAB BLOOD ORDERABLES Final Result [facility] [address] [place] [address] from Last 3 Months Insurance [employer] Care Teams Retail Stock Clerk Relationship Specialty Start Date End Date Ernst Andre MD [address] [place], [place] PCP - General 12/17/18
--- OUTSIDE RECORDS SUMMARY | 2024-07-01 09:28 | XMS_ITS | Encounter Summary ---
Author Organization [facility] Address [address] [place] [address] Phone Care Team Providers Care Agricultural Aircraft Pilot Name Role Phone Ernst Andre MD Primary Care Provider [phone] Encounter Details Date Type Department Care Team (Late Contact Info) Description 01/15/2024 Documentation Only [facility] [place], [address] [place] [phone] Maricel Graves [address] [place] [phone] Social History Tobacco Use Types Packs/Day [...] Visit [facility] [address] [place] [phone] Israel Fermin MD [address] [place] [address] [place] [address] documented as of this encounter Visit Diagnoses Not on filedocumented in this encounter Care Teams Agricultural Aircraft Pilot Relationship Specialty Start Date End Date Ernst Andre MD [address] [place], [place] PCP - General 12/17/18 documented as of this encounter
--- OUTSIDE RECORDS SUMMARY | 2024-07-01 09:28 | XMS_ITS | Clinical Summary ---
Author Organization [facility] Address [address] [place] [address] Care Team Providers Care Superintendent Communications Name Role Phone Unavailable Primary Care Provider Unavailabl e Social History Tobacco Use Types Packs/Day Years Used Date Smoking Tobacco: Never Assessed Comments Unknown Sex and Gender Information Value Date Recorded Sex Assigned at Not on file Legal Sex Female 12:54 PM EST Gender Identity Not on file Sexual Orientation Not on file Plan of Treatment Health Maintenance Due Date Last Done Comments Hepatitis C Screening 1963 Pap Smear 1979 DTaP/Tdap/Td (1 - Tdap) 07/06/1981 Mammogram/Breast Imaging 2003 Colon Cancer Screening 07/06/2008 Pneumococcal 50+ years (1 of 1 - PCV) 07/06/2013 Zoster (Shingrix) (1 of 2) 07/06/2013 COVID-19 Vaccine ( - 2023-2 5 season) 2023 Influenza (#1) 2023 RSV (1 - 1-dose 75+ series) 07/06/2038 HPV Vaccine Aged Out No longer eligi ble based on patient's age to complete this topic Hep A Aged Out No longer eligi ble based on patient's age to complete this topic Hep B Aged Out No longer eligi ble based on patient's age to complete this topic Hib Aged Out No longer eligi ble based on patient's age to complete this topic Meningococcal ACWY Aged Out No longer eligible based on patient's age to complete this topic Zoster (Zostavax) Discontinued
--- OUTSIDE RECORDS SUMMARY | 2024-07-01 09:28 | XMS_ITS | Encounter Summary ---
Author Organization [facility] Address [address] [place] [address] Phone Care Team Providers Care Muffler Tender Name Role Phone Ernst Andre MD Primary Care Provider [phone] Encounter Details Date Type Department Care Team (Late st Contact Info) Description 02/14/2022 Documentation Only [facility] [place], [address] [place] [address] Ernst Andre MD [address] [place] [address] Social History Tobacco Use Types Packs/Day Years [...] Visit [facility] Of [address] [place] [address] Israel Fermin MD [address] [place] [address] [place] [address] documented as of this encounter Visit Diagnoses Not on filedocumented in this encounter Care Teams Muffler Tender Relationship Specialty Start Date End Date Ernst Andre MD [address] [place], [place] PCP - General 12/17/18 documented as of this encounter
--- OUTSIDE RECORDS SUMMARY | 2024-07-01 09:28 | XMS_ITS | Encounter Summary ---
Author Organization [facility] [place], Address [address] [place] [address] Phone Care Team Providers Care Public Space Attendant Name Role Phone Ernst Andre MD Primary Care Provider [phone] Encounter Details Date Type Department Care Team (Late st Contact Info) Description 02/08/2022 Documentation Only [facility] [place], [address] [place] [place] [phone] [place], [place] [address] [place] [address] Social History Tobacco Use Types [...] Visit [facility] [address] [place] [address] Israel Fermin MD [address] [place] [address] documented as of this encounter Visit Diagnoses Not on filedocumented in this encounter Care Teams Public Space Attendant Relationship Specialty Start Date End Date Ernst Andre MD [address] [place], [place] PCP - General 12/17/18 documented as of this encounter
--- OUTSIDE RECORDS SUMMARY | 2024-07-01 09:28 | XMS_ITS | Encounter Summary ---
Author Organization [facility] Address [address] [place] [address] Phone Care Team Providers Care Workers Compensation Defense Attorney Name Role Phone Ernst Andre MD Primary Care Provider [phone] Encounter Details Date Type Department Care Team (Late st Contact Info) Description 02/14/2022 Documentation Only [facility] [place], [address] [place] [address] Ernst Andre MD [address] [place] [address] Social History Tobacco Use Types Packs/Day Years [...] Visit [facility] [address] [place] [address] Israel Fermin MD [address] [place] [address] [place] [address] documented as of this encounter Visit Diagnoses Not on filedocumented in this encounter Care Teams Workers Compensation Defense Attorney Relationship Specialty Start Date End Date Ernst Andre MD [address] [place], [place] PCP - General 12/17/18 documented as of this encounter
--- OUTSIDE RECORDS SUMMARY | 2024-07-01 09:28 | XMS_ITS | Encounter Summary ---
Author Organization [facility] Address [address] [place] [address] Phone Care Team Providers Care Crusher And Blender Operator Name Role Phone Ernst Andre MD Primary Care Provider Encounter Details Date Type Department Care Team (Late Contact Info) Description 01/15/2024 Documentation Only [facility] [place], [address] [place] [address] Maricel Graves [address] [place] [phone] Social History Tobacco Use Types Packs/Day [...] Visit [facility] [address] [place] [address] Israel Fermin MD [address] [place] [address] [place] [address] documented as of this encounter Visit Diagnoses Not on filedocumented in this encounter Care Teams Crusher And Blender Operator Relationship Specialty Start Date End Date Ernst Andre MD [address] [place], [place] PCP - General 12/17/18 documented as of this encounter
--- OUTSIDE RECORDS SUMMARY | 2024-07-01 09:28 | XMS_ITS | Encounter Summary ---
Author Organization [facility], Address [address] [place] [address] Phone Care Team Providers Care Workers Compensation Manager Name Role Phone Ernst Andre MD Primary Care Provider [phone] Reason for Visit * Reason Comments Med Refill Encounter Details Date Type Department Care Team (Late st Contact Info) Description 08/09/2019 Refill [facility] [address] [place] [phone] Israel Fermin MD [address] [place] [address] [place] [address] Social History Tobacco Use Types [...] have Coronavirus / COVID-19? No / Unsure 07/16/2019 7:01 AM EDT documented as of this encounter Plan of Treatment Upcoming Encounters Date Type Department Care Team (Late st Contact Info) Description 07/09/2024 10:15 AM EDT Office Visit [facility] [place] [address] [place] [place] [address] Israel Fermin MD [address] [facility] [place] [address] documented as of this encounter Visit Diagnoses Not on filedocumented in this encounter Care Teams Workers Compensation Manager Relationship Specialty Start Date End Date Ernst Andre MD [address] [place], [place] PCP - General 12/17/18 documented as of this encounter
--- OUTSIDE RECORDS SUMMARY | 2024-07-01 09:28 | XMS_ITS | Encounter Summary ---
Author Organization [facility], Address [address] [place] [address] Phone Care Team Providers Care Electrician Outside Name Role Phone Ernst Andre MD Primary Care Provider [phone] Reason for Visit * Reason Comments Med Refill Encounter Details Date Type Department Care Team (Late st Contact Info) Description 10/20/2019 Refill [facility] [address] [place] [address] Donny Pink PA Social History Tobacco Use [...] have Coronavirus / COVID-19? No / Unsure 10/14/2019 7:39 AM EDT documented as of this encounter Plan of Treatment Upcoming Encounters Date Type Department Care Team (Late st Contact Info) Description 07/09/2024 10:15 AM EDT Office Visit [facility] [address] [place] [place] [address] Israel Fermin MD [address] [place] [address] documented as of this encounter Visit Diagnoses Not on filedocumented in this encounter Care Teams Electrician Outside Relationship Specialty Start Date End Date Ernst Andre MD [address] [place], [place] PCP - General 12/17/18 documented as of this encounter
--- OUTSIDE RECORDS SUMMARY | 2024-07-01 09:28 | XMS_ITS | Encounter Summary ---
Author Organization [facility], Address [address] [place] [address] Phone Care Team Providers Care National Sales Executive Name Role Phone Ernst Andre MD Primary Care Provider [phone] Reason for Visit * Reason Comments Med Refill Encounter Details Date Type Department Care Team (Late st Contact Info) Description 09/16/2019 Refill [facility] [address] [place] [phone] Israel Fermin MD [address] [place] [address] [place] [address] Social History Tobacco Use Types [...] have Coronavirus / COVID-19? No / Unsure 08/26/2019 12:05 PM EDT documented as of this encounter Plan of Treatment Upcoming Encounters Date Type Department Care Team (Late st Contact Info) Description 07/09/2024 10:15 AM EDT Office Visit [facility] [place] [address] [facility] [place] [address] Israel Fermin MD [address] [facility] [place] [address] documented as of this encounter Visit Diagnoses Not on filedocumented in this encounter Care Teams National Sales Executive Relationship Specialty Start Date End Date Ernst Andre MD [address] [place], [place] PCP - General 12/17/18 documented as of this encounter
--- OUTSIDE RECORDS SUMMARY | 2024-07-01 09:28 | XMS_ITS | Encounter Summary ---
Author Organization [facility] Address [address] [place] [address] Phone Care Team Providers Care Structural Steel Worker Apprentice Name Role Phone Ernst Andre MD Primary Care Provider [phone] Encounter Details Date Type Department Care Team (Late Contact Info) Description 05/12/2022 Documentation Only [facility] [place], [address] [place] [address] Maricel Graves [address] [place] [phone] Social History Tobacco Use Types Packs/Day [...] Visit [facility] [address] [place] [address] Israel Fermin MD [address] [place] [address] [place] [address] documented as of this encounter Visit Diagnoses Not on filedocumented in this encounter Care Teams Structural Steel Worker Apprentice Relationship Specialty Start Date End Date Ernst Andre MD [address] [place], [place] PCP - General 12/17/18 documented as of this encounter
== END 2024-07-01 09:48 | disposition home or self-care (01) ==
LOC: HO.HMCH 08:58
DX: Z94.0 Kidney transplant status (principal); G62.9 Polyneuropathy, unspecified; F32.9 Major depressive disorder, single episode, unspecified; I10 Essential (primary) hypertension; M54.9 Dorsalgia, unspecified; G47.10 Hypersomnia, unspecified; F41.9 Anxiety disorder, unspecified; Z53.20 Procedure and treatment not carried out because of patient's decision for unspecified reasons

== ENCOUNTER → 2024-07-08 07:55 | Outpatient (REF) | payer OTHER, SELFPAY | LOC: HO.SL 07:55 | DX: G47.10 Hypersomnia, unspecified (principal) | CPT/HCPCS: 95806 ==

== ENCOUNTER 2024-10-16 08:21 | Outpatient (AMB) | payer OTHER, SELFPAY ==
--- NOTE | 2024-10-16 08:29 | A.OFFPC_ITS ---
Vital Signs 10/16/24 08:30 10/16/24 09:01 Height 5 ft 7 in Weight 157 lb 2 oz BMI 24.6 BP 124/74 136/78 Blood Pressure Location Lt brachial Lt brachial Position Sitting Sitting Pulse 73 Pulse Source Pulse Oximeter Temp 97.1 F Temp Source Temporal Artery Scan Pulse Oximetry (%) 96 Oxygen Delivery Method Room Air Intake Visit Reasons: Annual Exam Intake Note: Patient is here today for a physical. Lamp Cleaner Required: No Sludge Control Operator: Not Required per policy Accompanied by: Self / Same As Patient Allergies clonazepam Allergy (Intermediate, Verified 10/16/24 08:37) memory lapses lisinopril Allergy (Intermediate, Verified 10/16/24 08:37) Cough soy (SOY) Allergy (Intermediate, Verified 10/16/24 08:37) FLUSHING,ITCHY buspirone Adverse Reaction (Severe, Verified 10/16/24 08:37) psychosis Medication List - Last Reconciled 10/16/24 by Sally Marquez PA-C amlodipine 5 mg PO DAILY belatacept 375 mg IV Q4W blood pressure test kit-medium As directed; to check blood pressure BID bupropion HCl XL 150 mg PO DAILY bupropion HCl XL 300 mg PO DAILY carvedilol 12.5 mg PO BID cholecalciferol (vitamin D3) 25 mcg PO DAILY clonazepam 0.5 mg PO BID fluticasone propionate 50 mcg/actuation 1 spray intranasal DAILY PRN loratadine (Allergy Relief (loratadine)) 10 mg PO DAILY PRN multivitamin 1 tab PO DAILY mycophenolate sodium 540 mg PO BID omeprazole 20 mg PO DAILY paroxetine HCl (Paxil) 20 mg PO DAILY rosuvastatin 5 mg PO DAILY Tobacco use date assessed: 10/16/24 Dental Screening Dental Screen Date: 03/07/24 HPI Annual Exam HPI Details 59-year-old female with past medical his tory of depression, neuropathy, history of kidney transplant, polycystic kidney disease, hypertension, chronic pain syndrome, lumbar spondylosis with radiculopathy and hypersomnolence last seen 07/06 coming in for annual exam. In review of the notes, patient completed home sleep study 07/16/2024 which was normal. She tells us today she has had medication adjustments made by her kidney specialist regarding her BP which has been under better control lately. She did also have a renal artery US to rule out PAPO and US was normal. Mammogram: declined Eye exam: myeyedoctor yearly Pap smear: declined Colonoscopy: Plan to obtain [facility] records for last colonoscopy Vaccines: Td due today and given [facility] Medical History Chronic pain syndrome Left sided sciatica Depression Hx MRSA infection (~2009) Low back pain GERD (gastroesophageal reflux disease) AV fistula Seasonal allergies Polycystic kidney disease Peripheral neuropathy Eczema Surgical History Hx of wisdom tooth extraction Hx of colonoscopy Kidney transplant recipient History of surgery on arm History of D&C History of nephrectomy (~2008) History of tubal ligation History of kidney transplant (~2010) Family History Father Polycystic kidney disease Mother No problems noted. Paternal Grandmother Polycystic kidney disease Social History Housing: House Housing Other:: trailer Are you a primary care administrative tech to a significant other at home: No Do you presently have visiting nurse or other home services: No Alcohol intake: never Patient Tobacco Use Status: Never used Tobacco e-Cigarette/Vaping Use: Never Used Second Hand Smoke Exposure: No service: No Current occupational status: disabled Current occupational exposures/hazards: No Cognitive needs: No Hearing needs: No Vision needs: Yes Questionnaire PHQ-9 Over the last 2 weeks, how often have you been bothered by any of the following problems? 1. Little interest or pleasure in doing things: not at all 2. Feeling down, depressed, or hopeless: not at all 3. Trouble falling or staying asleep, or sleeping too much: more than half the days 4. Feeling tired or having little energy: nearly every day 5. Poor appetite or overeating: several days 6. Feeling bad about yourself - or that you are a failure or have let yourself or your family down: not at all 7. Trouble concentrating on things, such as reading the newspaper or watching television: not at all 8. Moving or speaking so slowly that other people could have noticed. Or the opposite - being so fidgety or restless that you have been moving around a lot more than usual: not at all 9. Thoughts that you would be better off or of hurting yourself in some way: not at all Total score: 6 Depression Screening Interpretation: Positive Depression Screening Follow-up: Existing condition and In treatment Depression Screening Done: Yes Source: Developed by Drs. Tariq Rivera, Asuncion Leach, Adam Morse and colleagues, with an educational joaquín from [employer]. Thrive Questionnaire Date Thrive assessed: 07/01/24 I am a: Patient What is your living situation today?: I have a steady place to live Within the past 12 months, did the food you bought not last and you didn't have the money to get more?: Never true Within the past 12 months, did you worry whether your food would run out before you got money to buy more?: Never true Do you have trouble paying for medicines?: No Do you have trouble getting transportation to medical appointments?: No Do you have trouble paying your heating and electricity bill?: No Do you have trouble taking care of your child, family member or friend?: No Do you have trouble with day-to-day activities such as bathing, preparing meals, shopping, managing finances, etc.?: No Are you currently unemployed and looking for a job?: No Are you interested in more education?: No Please select the resources that you would like help with: None THRIVE Score: 0 AUDIT C Alcohol Use Questionnaire (AUDIT-C) 3. How often do you have six or more drinks on one occasion?: Never Total Score: 0 ANDREIA-7 AMB Questionnaire ANDREIA-7 Date ANDREIA - 7 assessed: 07/01/24 Feeling nervous, anxious, or on edge: 1 = Several days Not being able to stop or control worryin = Several days Worrying too much about different things: 1 = Several days Trouble relaxin = Several days Being so restless that it is hard to sit still: 0 = Not at all Becoming easily annoyed or irritable: 0 = Not at all Feeling afraid as if something awful might happen: 0 = Not at all Total ANDREIA-7 score (0-4 normal; 5-9 mild; 10-14 moderate; 15-21 severe): 4 Source: Developed by Drs. Tariq Rivera, Asuncion Leach, Adam Morse and colleagues, with an educational joaquín from [employer]. Review of Systems Const Denies body aches, Denies fatigue, Denies fever(s), Denies frequent falls, De nies headache(s) and Denies weakness Eyes Reports no additional complaints and Denies change in vision ENT Denies dysphagia, Denies dizziness, Denies facial pain, Denies headache(s), Denies nasal congestion and Denies odynophagia Card Denies chest pain, Denies syncope, Denies irregular heart rhythm, Denies leg edema, Denies lightheadedness and Denies dyspnea Resp Denies cough and Denies dyspnea GI Denies abdominal pain, Denies constipation, Denies dysphagia, Denies dyspepsia, Denies diarrhea, Denies nausea, Denies odynophagia and Denies vomiting Denies urinary frequency, Denies dysuria, Denies urinary hesitancy and Denies urinary urgency Musc Denies back pain and Denies myalgias Skin/Breast Reports system reviewed and no additional complaints, except as documented Neuro Denies dizziness, Denies syncope, Denies frequent falls, Denies headache(s) and Denies weakness Psych Reports no additional complaints Endo Denies fatigue Physical exam (Primary Care) Vital Signs: Last Vital Signs Temp 97.1 F 10/16/24 08:30 Pulse 73 10/16/24 08:30 BP 136/78 10/16/24 09:01 Pulse Ox 96 10/16/24 08:30 Oxygen Delivery Method Room Air 10/16/24 08:30 BMI result Body Mass Index 24.6 Tobacco/Smoking Status: Tobacco use Status Tobacco use date assessed 10/16/24 10/16/24 08:35 Patient Tobacco Use Status Never used Tobacco 10/16/24 08:35 e-Cigarette/Vaping Use Never Used 10/16/24 08:35 PHQ-9: PHQ-9 Score PHQ-9: Total score 6 10/16/24 09:19 Depression Screening Interpretation: Positive Depression Screening Follow-up: Existing condition and In treatment Thrive Assessment: Date of Thrive Assessment Date Thrive assessed 07/01/24 10/16/24 08:35 Const General: cooperative, healthy appearing, comfortable and no acute distress Orientation/consciousness: patient oriented x3 HENMT Head: Yes normocephalic Ears: hearing grossly normal bilaterally, external ears normal, TM's normal bilaterally and EAC's normal General nose exam: Normal external nose present Face and sinus: Yes normal facial exam and Yes sinuses nontender Mouth: Normal oral and palatal mucosa present and tongue normal Throat: Yes posterior oropharynx normal Eyes General: appearance normal, both eyes and all related structures Conjunctivae: conjunctivae normal Pupils: Equal, round and reactive pupils present EOM: EOMs intact bilaterally and No Nystagmus present Neck Neck: Yes normal visual inspection, Yes full ROM and Yes no lymphadenopathy Chest Chest palpation & inspection: normal inspection of the chest Resp Effort & Inspection: normal respiratory effort Auscultation: clear to auscultation bilaterally, no crackles, no rales, no rhonchi, no wheezes and breath sounds present Cardio Rate: regular rate Rhythm: regular rhythm Peripheral pulses: radial pulses present and dorsalis pedis present GI Inspection: Yes normal to inspection and No Abdominal wall edema Palpation (GI): Soft to palpation, not firm and nontender Auscultation: normal bowel sounds Rectal Exam - Female: deferred General: Yes no CVA tenderness Back/Spine/Pelvis Back: no CVA tenderness Skin General skin exam: no rashes or lesions noted Neuro General: patient oriented x3 Cranial nerves: Yes Equal, round and reactive pupils present, Yes Midline tongue present, Yes Ability to bilaterally elevate shoulders present and No Nystagmus present Gait exam (Neuro): Normal gait present Extrem General: Yes normal to inspection, Yes full ROM, No no pedal edema and No edema Psych Speech and movement: Normal speech and movement present Affect: normal affect Insight: Good insight present (Psych) Judgement: Good judgement present (Psych) Immunizations Tenivac (PF) 5 Lf unit-2 Lf unit/0.5 mL intramuscular syringe Performing Provider: Sally Marquez PA-C [facility] Administered by: Meena Temple LPN on 10/16/24 09:20 Dose Route Admin Location Dispensed Lot Number Expiration Date [employer] T[employer] Maker 0.5 mL IM Left Deltoid 0.5 mL [id number] 06/11/26 93828-894-75 [employer] Total Dispensed Waste 0.5 mL 0 % VIS Given Date VIS Provided VIS Publication Date 10/16/24 Single Vaccine 20 Eligibility Eligibility Date Funding Source Not [facility] Eligible 10/16/24 Private Coding Level of Care Code Est Pt Prev Care 40-64y(77826) Diagnoses Physical exam Z00.00 Mammogram declined Z53.20 Depression F32.9 Anxiety F41.9 Hypertension I10 Kidney transplant recipient Z94.0 Peripheral neuropathy G62.9 Back pain M54.9 Hypersomnolence G47.10 Assessment & Plan Assessment & Plan (1) Physical exam: Code(s): Z00.00 - Encounter for general adult medical examination without abnormal findings Category: Medical Plan: Patient is up to date on all recommended routine screenings and vaccinations for her age with the exception of mammogram and patient understands the risks of not having this performed. She is due for tetanus vaccine which was obtained in the office today. Blood work is up-to-date through her rope machine setter and we will work to obtain these notes. Healthy diet and regular exercise is encouraged. (2) Mammogram declined: Code(s): Z53.20 - Procedure and treatment not carried out because of patient's decision for unspecified reasons Category: Medical Plan: Patient declining mammogram today and understands the risks of not having this performed. (3) Depression: Comment: [facility] weekly Code(s): F32.9 - Major depressive disorder, single episode, unspecified Category: Medical Plan: Has been following with [facility] for counseling and feels this is beneficial. She will continue on the Wellbutrin. Plan to increase the paroxetine to 40 mg today. Did discuss possible side effects and red flag symptoms of this medication and when to present for re-evaluation. I did offer a three-month follow up our patient would like to follow up in 6 months and touch base in the portal on effectiveness of this medication. (4) Anxiety: Code(s): F41.9 - Anxiety disorder, unspecified Category: Medical Plan: Following with counselor and finds this beneficial. Feels better on the Clonazepam .5mg and would like to continue on this dose. (5) Hypertension: Code(s): I10 - Essential (primary) hypertension Category: Medical Plan: Continue on current blood pressure medication. Avoid salt intake and encourage healthy diet and regular exercise. Continue to follow with kidney specialist (6) Kidney transplant recipient: Code(s): Z94.0 - Kidney transplant status Category: Surgical Plan: Patient currently following with kidney transplant specialist through [facility]. (7) Peripheral neuropathy: Comment: resolved after Capsasin 8% treatment Code(s): G62.9 - Polyneuropathy, unspecified Category: Medical Plan: Patient has peripheral neuropathy has largely resolved since back surgery. She does have intermittent symptoms on occasion that she manages. (8) Back pain: Code(s): M54.9 - Dorsalgia, unspecified Category: Medical Plan: Patient's back pain has largely resolved since the surgery 01/2024. She does have occasional aches and pains which she manages with stretching and topical treatments (9) Hypersomnolence: Code(s): G47.10 - Hypersomnia, unspecified Category: Medical Plan: Sleep study was negative. Plan to trial Melatonin to use nightly for insomnia. Plan This note was constructed using voice recognition software. While every effort has been made to ensure accuracy and dry wall plasterer, still areas may have been included sometimes these areas may affect the content or meeting of the given symptoms. Total time spent caring for the patient today was 30 minutes. This includes time spent before the visit reviewing the chart, time spent during the visit, and time spent after the visit and documentation. Patient was informed and verbally consented to the use of an ambient scribe for clinic note documentation during this visit. Orders: Orders Td Immunization Today Z23 - Encounter for immunization Medications: New melatonin 5 mg PO BEDTIME 90 caps 0RF paroxetine HCl 40 mg PO DAILY 90 tabs 0RF Discontinued paroxetine HCl (Paxil) Discontinued Reason: Patient no longer taking 20 mg PO DAILY 30 tabs 1RF
[2024-10-16 08:30] VITALS: BP 124/74; PULSE 73; TEMP 36.2; O2SAT 96; BMI 24.6
--- OUTSIDE RECORDS SUMMARY | 2024-10-16 08:44 | XMS_ITS | Encounter Summary ---
Author Organization [facility], Address [address] [place] [address] Phone Care Team Providers Care Starter Mechanic Name Role Phone Sally Marquez Primary Care Provider [phone] Encounter Details Date Type Department Care Team (Late st Contact Info) Description 03/03/2021 Documentation Only [facility], [address] [place] [phone] [place], [place] [address] [place] [address] Social History Tobacco Use Types [...] Care Team (Late st Contact Info) Description 11/10/2024 2:15 PM EDT Clinical Support [facility] [address] [place] [phone] Cheyenne Mane FNP-C [address] [place] [place] [address] documented as of this encounter Visit Diagnoses Not on filedocumented in this encounter Care Teams Starter Mechanic Relationship Specialty Start Date End Date KerrySally jaime [address] [place] [address] PCP - General 07/08/24 documented as of this encounter
--- OUTSIDE RECORDS SUMMARY | 2024-10-16 08:44 | XMS_ITS | Patient Health Record ---
Author Organization [facility] Address [address] [place] [address] Care Team Providers Care Master [place] Name Role Phone Ernst Andre MD Primary Care Provider Alexaa Anderson Romano Unavailable [phone] Reason For Referral No Information Medications Medication SIG (Take, Route, Frequency, Duration) Notes Start Date End Date Status cycloSPORINE 100 MG Orally Active Losartan Potassium 25 MG 1 tablet Orally Once a day Active Myfortic 180 MG Orally Acti ve Omeprazole 20 MG 1 capsule Orally Onc e a day Active amLODIPine Besylate 5 MG 1 tablet Orally Once a day Active oxyCODONE HCl Active buPROPion HCl ER (XL) 150 MG 1 tablet in the morning Orally Once a day Active Problems Problem Type SNOMED Code ICD Code Onset Dates Problem Status W/U Status Risk Notes Problem Disorder of joint of ankle and/or foot (037231254) Arthritis - Degenerative (719.97) Active confirmed Problem Hallux valgus (464379640) Hallux Valgus (735.0) Active confirmed Problem Hammer toe (295916866) Hammer toe (735.4) Active confirmed Problem Congenital pes planus (02060801) Flat Foot, Congenital (754.61) Active confirmed Problem Pain in limb (95809004) Pain in Limb (729.5) Active confirmed Plan Of Treatment Pending Test Test Name Order Date X ray : Foot, left 2V 09/29/2013 Insurance Providers Payer Name Payer Address Payer Phone Subscriber Number Group Number Insured Name Patient Relationship to Insured Coverage Start Date Coverage End Date Medicare National Govt Sv[employer] [address] [place] [address] [id number] Veronica Crump Self - patient is the insured Medical (General) History Medical History History ICD Code Cholesterol Depression High blood pressure Kidney disease Neuropathy Reflux Chicken pox Vascular grafts Transfusions Surgical History Surgery Date(Month/Year) Kidney Transplant 11/19/2010
--- OUTSIDE RECORDS SUMMARY | 2024-10-16 08:45 | XMS_ITS | Encounter Summary ---
Author Organization [facility], Address [address] [place] [address] Phone Care Team Providers Care Fitter Machinist Name Role Phone Sally Marquez Primary Care Provider [phone] Encounter Details Date Type Department Care Team (Late Contact Info) Description 01/15/2024 Documentation Only [facility], [address] [place] [place] [phone] Maricel Graves [address] [place] [address] Social History Tobacco Use Types [...] Department Care Team (Late Contact Info) Description 11/10/2024 2:15 PM EDT Clinical Support [facility] [address] [place] [phone] Cheyenne Mane FNP-C [address] [place] [address] documented as of this encounter Visit Diagnoses Not on filedocumented in this encounter Care Teams Fitter Machinist Relationship Specialty Start Date End Date Sally Marquez [address] [place] [address] PCP - General 07/08/24 documented as of this encounter
--- OUTSIDE RECORDS SUMMARY | 2024-10-16 08:45 | XMS_ITS | Encounter Summary ---
Author Organization [facility], Address [address] [place] [address] Phone Care Team Providers Care Burrito Maker Name Role Phone Sally Marquez Primary Care Provider [phone] Encounter Details Date Type Department Care Team (Late Contact Info) Description 06/06/2023 Documentation Only [facility], [address] [place] [phone] Maricel Graves [address] [place] [address] Social History Tobacco Use Types [...] Support [facility] [address] [place] [phone] Cheyenne Mane FNP-C [address] [place] [address] documented as of this encounter Visit Diagnoses Not on filedocumented in this encounter Care Teams Burrito Maker Relationship Specialty Start Date End Date Sally Marquez [address] [place] [address] PCP - General 07/08/24 documented as of this encounter
--- OUTSIDE RECORDS SUMMARY | 2024-10-16 08:45 | XMS_ITS | Encounter Summary ---
Author Organization [facility], Address [address] [place] [address] Phone Care Team Providers Care Manager Story Name Role Phone Sally Marquez Primary Care Provider Reason for Visit * Reason Comments Med Refill Encounter Details Date Type Department Care Team (Late Contact Info) Description 09/07/2021 Refill [facility] [address] [place] [phone] Israel Fermin MD [address] [place] [address] Social History Tobacco Use Types [...] Support [facility] [address] [place] [phone] Cheyenne Mane FNP-C [address] [place] [address] documented as of this encounter Visit Diagnoses Not on filedocumented in this encounter Care Teams Manager Story Relationship Specialty Start Date End Date Jimmy Sally [address] [place] [address] PCP - General 07/08/24 documented as of this encounter
--- OUTSIDE RECORDS SUMMARY | 2024-10-16 08:45 | XMS_ITS | Encounter Summary ---
Author Organization [facility], Address [address] [place] [address] Phone Care Team Providers Care Radiology Therapist Name Role Phone Sally Marquez Primary Care Provider [phone] Encounter Details Date Type Department Care Team (Late Contact Info) Description 01/15/2024 Documentation Only [facility], [address] [place] [phone] Maricel Graves [address] [place] [address] Social History Tobacco Use Types [...] Support [facility] [address] [place] [phone] Cheyenne Mane FNP-C [address] [place] [address] documented as of this encounter Visit Diagnoses Not on filedocumented in this encounter Care Teams Radiology Therapist Relationship Specialty Start Date End Date Sally Marquez [address] [place] [address] PCP - General 07/08/24 documented as of this encounter
--- OUTSIDE RECORDS SUMMARY | 2024-10-16 08:45 | XMS_ITS | Encounter Summary ---
Author Organization [facility], Address [address] [place] [address] Phone Care Team Providers Care Laundry Machine Operator Name Role Phone Sally Marquez Primary Care Provider [phone] Reason for Visit * Reason Onset Date Comments renal duplex review 10/15/2024 Encounter Details Date Type Department Care Team (Late st Contact Info) Description 10/15/2024 Telephone [facility] [address] [place] [phone] Sonia Hope, RN [address] [place] [address] [place] [phone] Social History Tobacco Use Types Packs/Day Years [...] on file documented as of this encounter Miscellaneous Notes * Telephone Encounter - Sonia Hope, RN - 10/15/2024 2:52 PM EDT Reviewed renal duplex with Dr. Fermin, no abnormalities found. Left VM with results. documented in this encounter Plan of Treatment Upcoming Encounters Date Type Department Care Team (Late st Contact Info) Description 11/10/2024 2:15 PM EDT Clinical Support [facility] [address] [place] [phone] Cheyenne Mane FNP-C [address] [place] [phone] documented as of this encounter Visit Diagnoses Not on filedocumented in this encounter Care Teams Laundry Machine Operator Relationship Specialty Start Date End Date Sally Marquez [address] [place] [address] [address] PCP - General 07/08/24 documented as of this encounter
--- OUTSIDE RECORDS SUMMARY | 2024-10-16 08:45 | XMS_ITS | Encounter Summary ---
Author Organization [facility], Address [address] [place] [address] Phone Care Team Providers Care Custom Leather Products Maker Name Role Phone Sally Marquez Primary Care Provider [phone] Reason for Visit * Reason Comments Med Refill Encounter Details Date Type Department Care Team (Late Contact Info) Description 08/09/2019 Refill [facility] [address] [place] [phone] Israel Fermin MD [address] [place] [address] [place] [phone] Social History Tobacco Use Types Packs/Day Years [...] Support [facility] [place] [address] [place] [phone] Cheyenne Mane FNP-C [address] [place] [phone] documented as of this encounter Visit Diagnoses Not on filedocumented in this encounter Care Teams Custom Leather Products Maker Relationship Specialty Start Date End Date Sally Marquez [address] [address] PCP - General 07/08/24 documented as of this encounter
--- OUTSIDE RECORDS SUMMARY | 2024-10-16 08:45 | XMS_ITS | Encounter Summary ---
Author Organization [facility] [place], Address [address] [place] [address] Phone Care Team Providers Care Hebrew Cantor Name Role Phone Sally Marquez Primary Care Provider [phone] Encounter Details Date Type Department Care Team (Late Contact Info) Description 10/15/2024 Orders Only [facility] [place], [address] [place] [phone] Israel Fermin MD [address] [facility] [place] [address] Social History Tobacco Use Types [...] Support [facility] [place] [address] [place] [phone] Cheyenne Mane FNP-C [address] [place] [address] documented as of this encounter Visit Diagnoses Not on filedocumented in this encounter Care Teams Hebrew Cantor Relationship Specialty Start Date End Date Sally Marquez [address] [place] [address] PCP - General 07/08/24 documented as of this encounter
--- OUTSIDE RECORDS SUMMARY | 2024-10-16 08:45 | XMS_ITS | Encounter Summary ---
Author Organization [facility] [place], Address [address] [place] [address] Phone Care Team Providers Care Spud Sorter Name Role Phone Sally Marquez Primary Care Provider [phone] Reason for Visit * Reason Comments Med Refill Encounter Details Date Type Department Care Team (Late st Contact Info) Description 04/21/2021 Refill [facility] [place] [address] [place] [address] Donny Pink PA [address] [place] [phone] Social History Tobacco Use Types Packs/Day Years [...] Support [facility] [place] [address] [place] [phone] Cheyenne Mane FNP-Roly [address] [place] [phone] documented as of this encounter Visit Diagnoses Not on filedocumented in this encounter Care Teams Spud Sorter Relationship Specialty Start Date End Date Sally Marquez [address] [address] PCP - General 07/08/24 documented as of this encounter
--- OUTSIDE RECORDS SUMMARY | 2024-10-16 08:45 | XMS_ITS | Encounter Summary ---
Author Organization [facility] [place], Address [address] [place] [address] Phone Care Team Providers Care Meter Tester Polyphase Name Role Phone Sally Marquez Primary Care Provider [phone] Encounter Details Date Type Department Care Team (Late st Contact Info) Description 05/17/2022 Documentation Only [facility] [place], [address] [place] [phone] Maricel Graves [address] [place] [address] Social History Tobacco Use Types [...] Support [facility] [place] [address] [place] [phone] Cheeynne Mane FNP-C [address] [place] [address] documented as of this encounter Visit Diagnoses Not on filedocumented in this encounter Care Teams Meter Tester Polyphase Relationship Specialty Start Date End Date Sally Marquez [address] [place] [address] PCP - General 07/08/24 documented as of this encounter
--- OUTSIDE RECORDS SUMMARY | 2024-10-16 08:45 | XMS_ITS | Clinical Summary ---
Author Organization [facility] Address [address] [place] [address] Care Team Providers Care Environmental Services Project Manager Name Role Phone Unavailable Primary Care Provider [...] COVID-19 Vaccine ( - 2023-2 5 season) 2024 Influenza (#1) 2024 RSV (1 - 1-dose 75+ series) 07/06/2038 HPV Vaccine (No Doses Required) Completed Hep A Aged Out No longer eligi [...]
--- OUTSIDE RECORDS SUMMARY | 2024-10-16 08:45 | XMS_ITS | Encounter Summary ---
Author Organization [facility] [place], Address [address] [place] [address] Phone Care Team Providers Care Technical Services Consultant Name Role Phone Sally Marquez Primary Care Provider [phone] Encounter Details Date Type Department Care Team (Late Contact Info) Description 05/12/2022 Documentation Only [facility] [place], [address] [place] [address] Maricel Graves [address] [place] [address] Social History Tobacco Use Types [...] Support [facility] [place] [address] [place] [phone] Cheyenne Mane FNP-C [address] [place] [address] documented as of this encounter Visit Diagnoses Not on filedocumented in this encounter Care Teams Technical Services Consultant Relationship Specialty Start Date End Date Sally Marquez [address] [place] [address] PCP - General 07/08/24 documented as of this encounter
--- OUTSIDE RECORDS SUMMARY | 2024-10-16 08:45 | XMS_ITS | Encounter Summary ---
Author Organization [facility] [place], Address [address] [place] [address] Phone Care Team Providers Care School Age Program Teacher Name Role Phone Sally Marquez Primary Care Provider [phone] Encounter Details Date Type Department Care Team (Late Contact Info) Description 06/07/2023 Documentation Only [facility] [place], [address] [facility] [phone] Maricel Graves [address] [place] [address] Social History Tobacco Use Types [...] Support [facility] [place] [address] [place] [phone] Cheyenne Mane FNP-C [address] [facility] [place] [address] documented as of this encounter Visit Diagnoses Not on filedocumented in this encounter Care Teams School Age Program Teacher Relationship Specialty Start Date End Date Sally Marquez [address] [place] [address] PCP - General 07/08/24 documented as of this encounter
--- OUTSIDE RECORDS SUMMARY | 2024-10-16 08:45 | XMS_ITS | Encounter Summary ---
Author Organization [facility] [place], Address [address] [place] [address] Phone Care Team Providers Care Stitch Bonding Machine Tender Helper Name Role Phone Sally Marquez Primary Care Provider [phone] Encounter Details Date Type Department Care Team (Late st Contact Info) Description 05/02/2021 Documentation Only [facility] [place], [address] [place] [phone] Israel Fermin MD [address] [facility] [place] [address] Social History Tobacco Use Types [...] [facility] [place] [address] [place] [phone] Cheyenne Mane FNP-C [address] [place] [phone] documented as of this encounter Visit Diagnoses Not on filedocumented in this encounter Care Teams Stitch Bonding Machine Tender Helper Relationship Specialty Start Date End Date Sally Marquez [address] [address] PCP - General 07/08/24 documented as of this encounter
--- OUTSIDE RECORDS SUMMARY | 2024-10-16 08:45 | XMS_ITS | Clinical Summary ---
Author Organization [facility], Address [address] [place] [address] [place] [address] Phone Care Team Providers Care Hvac Project Manager Name Role Phone Sally Marquez Primary Care Provider [phone] Allergies Active Allergy Reactions Criticality Noted Date [...] 1 (one) time each day 1 Active PARoxetine (PAXIL) 20 MG tablet 4 Active omeprazole (PriLOSEC) [address] capsule TAKE 1 CAPSULE BY MOUTH EVERY DAY 90 capsule 3 4 Active Belatacept (Nulojix) 250 MG reconstituted solution Infuse 5 mg/kg into a venous catheter every 28 (twenty-eight ) days Patients weight as of 11/06/23 is 73.6 kg. 2 each 11 4 Active carvedilol (Coreg) 12.5 MG tablet Take 1 tablet (12.5 mg total) by mouth in the morning and 1 tablet (12.5 mg total) in the evening. Take with meals. 180 tablet 3 5 03/26/19 26 Active losartan (Cozaar) 50 MG tablet Take 1 tablet (50 mg total) by mouth 1 (one) time each day 30 tablet 11 5 07/10/19 26 Active amLODIPine (NORVASC) 2.5 MG tablet Take 2 tablets (5 mg total) by mouth 1 (one) time each day 30 tablet 11 5 07/10/19 26 Active rosuvastatin (CRESTOR) 5 MG tablet Take 1 tablet (5 mg total) by mouth 1 (one) time each day 90 tablet 3 5 Active amoxicillin (AMOXIL) 500 MG tablet TAKE 4 TABLETS BY MOUTH 1 HOUR PRIOR TO DENTAL WORK 4 tablet 5 Active Active Problems Problem Noted Date Diagnosed [...] Encounters Date Type Department Care Team Description 10/15/2024 Telephone [facility] [address] [place], [place] [address] Sonia Hope, RN 10/15/2024 Orders Only [facility], [address] [place], [place] [address] Israel Fermin MD 09/12/2024 10:00 AM EDT Office Visit [facility] [address] [place] [address] Israel Fermin MD History of renal transplant [Z94.0] (Primary Dx); History of immunosuppressive therapy [Z92.25]; Hypertension; Stage 3a chronic kidney disease (HCC) [N18.31]; Persistent proteinuria 09/04/2024 Orders Only [facility] [address] [place] [address] [address] [place] History of renal transplant (Primary Dx); History of immunosuppressive therapy; Stage 3a chronic kidney disease (HCC); Long-term current use of immunosuppressive drug; Chronic kidney disease stage 2; Hyperlipidemia, not otherwise specified; Kidney replaced by transplant; Persistent proteinuria; Other iron deficiency anemia; Other specified hypoparathyroidism (HCC); Albuminuria, not otherwise specified 08/22/2024 Orders Only [facility] [address] [place] [address] [address] [place] 08/12/2024 Orders Only [facility] [address] [place] [address] [address] [place] 08/08/2024 Orders Only [facility] [address] [place] [address] [address] [place] from Last 3 Months Immunizations Immunization Administration [...] Sign Reading Time Taken Comments Blood Pressure 140/76 09/12/2024 10:31 AM EDT Pulse 88 03/26/2024 9:38 AM EST Temperature 36.6 C (97.8 F) 11/18/2019 1:23 PM EDT Respiratory Rate 12 06/13/2019 10:54 AM EDT Oxygen Saturation 97% 11/18/2019 1:23 PM EDT Inhaled Oxygen Concentration - - Weight 74.8 kg (165 lb) 09/12/2024 10:31 AM EDT Height 170.2 cm (5' 7 ) 11/06/2023 10:53 AM EDT Body Mass Index 25.84 11/06/2023 10:53 AM EDT Plan of Treatment Upcoming Encounters Date Type Department Care Team (Late st Contact Info) Description 11/10/2024 2:15 PM EDT Clinical Support [facility] [address] [place] [id number] Cheyenne Mane FNP-C [address] [place] [address] Health Maintenance Due Date Last Done Comments Breast Cancer Screening 1965 Pneumococcal Vaccine: 50+ Years (3 of 3 - PCV) 09/24/2014 09/24/2013, 12/03/2009 Colonoscopy (Post-Transplant Patient) 09/24/2019 Mammogram (Post-Transplant Patient) 09/24/2019 Pelvic Exam (Post-Transplant Patient) 09/24/2019 Influenza Vaccine (#1) 2024 1, 11/12/2019, 10/26/2018, Additional history exists Hepatitis B Vaccine Aged Out 10/19/2006, 05/24/2006, 04/19/2006 No longer eligible based on patient's age to complete this topic Pneumococcal Vaccine: Peds (0 to 5 Years) and At-Risk Patients (6 to 49 Years) Discontinued 09/24/2013, 12/03/2009 Procedures Procedure Name Priority Date/Time Associated Diagnosis Comments TRANSPLANT RENAL ULTRASOUND WITH DUPLEX Routine 09/29/2024 11:38 AM EDT Hypertension URINALYSIS, COMPLETE Routine 09/08/2024 1:11 PM EDT History of renal transplant History of immunosuppressive therapy Stage 3a chronic kidney disease (HCC) Long-term current use of immunosuppressive drug Chronic kidney disease stage 2 Hyperlipidemia, not otherwise specified Kidney replaced by transplant Persistent proteinuria Other iron deficiency anemia Other specified hypoparathyroidism (HCC) Albuminuria, not otherwise specified URINE ALBUMIN / CREATININE RATIO Routine 09/08/2024 1:11 PM EDT History of renal transplant History of immunosuppressive therapy Stage 3a chronic kidney disease (HCC) Long-term current use of immunosuppressive drug Chronic kidney disease stage 2 Hyperlipidemia, not otherwise specified Kidney replaced by transplant Persistent proteinuria Other iron deficiency anemia Other specified hypoparathyroidism (HCC) Albuminuria, not otherwise specified PTH, INTACT Routine 09/08/2024 1:11 PM EDT History of renal transplant History of immunosuppressive therapy Stage 3a chronic kidney disease (HCC) Long-term current use of immunosuppressive drug Chronic kidney disease stage 2 Hyperlipidemia, not otherwise specified Kidney replaced by transplant Persistent proteinuria Other iron deficiency anemia Other specified hypoparathyroidism (HCC) Albuminuria, not otherwise specified IRON PANEL (FE, TIBC, TSAT) Routine 09/08/2024 1:11 PM EDT History of renal transplant History of immunosuppressive therapy Stage 3a chronic kidney disease (HCC) Long-term current use of immunosuppressive drug Chronic kidney disease stage 2 Hyperlipidemia, not otherwise specified Kidney replaced by transplant Persistent proteinuria Other iron deficiency anemia Other specified hypoparathyroidism (HCC) Albuminuria, not otherwise specified FERRITIN Routine 09/08/2024 1:11 PM EDT History of renal transplant History of immunosuppressive therapy Stage 3a chronic kidney disease (HCC) Long-term current use of immunosuppressive drug Chronic kidney disease stage 2 Hyperlipidemia, not otherwise specified Kidney replaced by transplant Persistent proteinuria Other iron deficiency anemia Other specified hypoparathyroidism (HCC) Albuminuria, not otherwise specified CREATINE KINASE Routine 09/08/2024 1:11 PM EDT History of renal transplant History of immunosuppressive therapy Stage 3a chronic kidney disease (HCC) Long-term current use of immunosuppressive drug Chronic kidney disease stage 2 Hyperlipidemia, not otherwise specified Kidney replaced by transplant Persistent proteinuria Other iron deficiency anemia Other specified hypoparathyroidism (HCC) Albuminuria, not otherwise specified ALT Routine 09/08/2024 1:11 PM EDT History of renal transplant History of immunosuppressive therapy Stage 3a chronic kidney disease (HCC) Long-term current use of immunosuppressive drug Chronic kidney disease stage 2 Hyperlipidemia, not otherwise specified Kidney replaced by transplant Persistent proteinuria Other iron deficiency anemia Other specified hypoparathyroidism (HCC) Albuminuria, not otherwise specified AST Routine 09/08/2024 1:11 PM EDT History of renal transplant History of immunosuppressive therapy Stage 3a chronic kidney disease (HCC) Long-term current use of immunosuppressive drug Chronic kidney disease stage 2 Hyperlipidemia, not otherwise specified Kidney replaced by transplant Persistent proteinuria Other iron deficiency anemia Other specified hypoparathyroidism (HCC) Albuminuria, not otherwise specified CBC AND DIFFERENTIAL Routine 09/08/2024 1:11 PM EDT History of renal transplant History of immunosuppressive therapy Stage 3a chronic kidney disease (HCC) Long-term current use of immunosuppressive drug Chronic kidney disease stage 2 Hyperlipidemia, not otherwise specified Kidney replaced by transplant Persistent proteinuria Other iron deficiency anemia Other specified hypoparathyroidism (HCC) Albuminuria, not otherwise specified RENAL FUNCTION PANEL Routine 09/08/2024 1:11 PM EDT History of renal transplant History of immunosuppressive therapy Stage 3a chronic kidney disease (HCC) Long-term current use of immunosuppressive drug Chronic kidney disease stage 2 Hyperlipidemia, not otherwise specified Kidney replaced by transplant Persistent proteinuria Other iron deficiency anemia Other specified hypoparathyroidism (HCC) Albuminuria, not otherwise specified MYCOPHENOLIC ACID AND METABO. Routine 09/08/2024 1:11 PM EDT History of renal transplant History of immunosuppressive therapy Stage 3a chronic kidney disease (HCC) Long-term current use of immunosuppressive drug Chronic kidney disease stage 2 Hyperlipidemia, not otherwise specified Kidney replaced by transplant Persistent proteinuria Other iron deficiency anemia Other specified hypoparathyroidism (HCC) Albuminuria, not otherwise specified MICROSCOPIC EXAMINATION - DO NOT USE Routine 09/08/2024 1:11 PM EDT from Last 3 Months Results * Transplant Renal Ultrasound with Duplex (09/29/2024 11:38 AM EDT) Anatomical Region Laterality Modality Body Ultrasound us Israel Fermin MD IMG US PROCEDURES Final Re sult * (ABNORMAL) Urinalysis, Complete w/reflex to Culture (09/08/2024 1:11 PM EDT) Specific Caroline, Urine 1.015 1.005 - 1.030 [facility] pH Urine 6.0 5.0 - 7.5 [facility] Color, Urine Yellow Yellow [facility] Appearance Urine Clear Clear [facility] WBC Esterase Urine Negative Negative [facility] Protein, Ur 1+(A) Negative/Tra ce [facility] Glucose, Ur Negative Negative [facility] Ketones, Urine Negative Negative [facility] Blood Urine Negative Negative [facility] Bilirubin Urine Negative Negative [facility] Urobilinogen Urine 0.2 0.2 - 1.0 mg/dL [facility] Nitrite, Urine Negative Negative [facility] Microscopic Examination See below: [facility] Comment:Microscopic was deyanira cated and was performed. URINALYSIS REFLEX Comment [facility] Comment:This specimen will n ot reflex to a Urine Culture. Urine Urine specimen obtained by clean catch procedure / Unknown 09/08/2024 1:11 PM EDT 09/08/2024 Israel Fermin MD LAB URINE ORDERABLES Final Result Performing Organization Address City/[facility]/ZIP Co de Phone Number [facility] [address] [place] [address] * Mycophenolic Acid and Metabo. (09/08/2024 1:11 PM EDT) Mycophenolic Acid 1.4 1.0 - 3.5 ug/mL [facility] Mycophenolic Acid Glucuronide 68 35 - 100 ug/mL [facility] Blood Venous blood / Unknown 09/08/2024 1:11 PM EDT 09/08/2024 N[facility]ative [facility] 09/12/2024 4:06 PM EDT Test(s) 214062-Xwufizrsxmws Acid; 126110- Mycophenolic Acid Glucuronide was developed and its performance characteristics determined by [facility]. It has not been cleared or approved by the Food and Drug Administration. Israel Fermin MD LAB BLOOD ORDERABLES Final Result [facility] [place] [address] * Microscopic Examination (09/08/2024 1:11 PM EDT) WBC, Urine None seen 0 - 5 /hpf [facility] RBC, Urine None seen 0 - 2 /hpf [facility] Squamous Epithelial, Urine None seen 0 - 10 /hpf [facility] Casts None seen None seen /lpf [facility] Bacteria, Urine None seen None seen/Few [facility] 09/08/2024 1:11 PM EDT 09/08/2024 Israel Fremin MD LAB MICROBIOLOGY - GENERAL ORDERABLES Final Result [facility] [address] [place] [address] * Iron Panel (Fe, TIBC, TSAT) (09/08/2024 1:11 PM EDT) TIBC 258 250 - 450 ug/dL [facility] UIBC 186 118 - 369 ug/dL [facility] Iron 72 27 - 139 ug/dL [facility] Iron Saturation (TSat) 28 15 - 55 % [facility] Blood Venous blood / Unknown 09/08/2024 1:11 PM EDT 09/08/2024 Israel Fermin MD LAB BLOOD ORDERABLES Final Result Performing Organization Address City/[facility]/ZIP Co de Phone Number [facility] [address] [place] [address] * (ABNORMAL) Urine Albumin / Creatinine Ratio (09/08/2024 1:11 PM EDT) Creatinine, Ur 51.1 Not Estab. mg/dL [facility] Albumin, Urine 145.0 Not Estab. ug/mL [facility] Albumin/Creatin ine Ratio 284(H) 0 - 29 mg/g creat [facility] Comment: Normal: 0 - 29 Moderately increased: 30 - 300 Severely increased: >300 Urine Urine specimen obtained by clean catch procedure / Unknown 09/08/2024 1:11 PM EDT 09/08/2024 us Israel Fermin MD LAB URINE ORDERABLES Final Result [facility] [address] [place] [address] * (ABNORMAL) CBC and Differential (09/08/2024 1:11 PM EDT) WBC 5.9 3.4 - 10.8 x10E3/uL [facility] RBC 3.31(L) 3.77 - 5.28 x10E6/uL [facility] Hemoglobin 10.0(L) 11.1 - 15.9 g/dL [facility] Hematocrit 31.0(L) 34.0 - 46.6 % [facility] MCV 94 79 - 97 fL [facility] MCH 30.2 26.6 - 33.0 pg [facility] MCHC 32.3 31.5 - 35.7 g/dL [facility] RDW 12.7 11.7 - 15.4 % [facility] Platelets 215 150 - 450 x10E3/uL [facility] Neutrophils Relative 55 Not Estab. % [facility] Lymphocytes Relative 34 Not Estab. % [facility] Monocytes 6 Not Estab. % [facility] Eosinophils Relative 4 Not Estab. % [facility] Basophils Relative 1 Not Estab. % [facility] Neutrophils Absolute 3.3 1.4 - 7.0 x10E3/uL [facility] Lymphocytes Absolute 2.0 0.7 - 3.1 x10E3/uL [facility] Monocytes Absolute 0.4 0.1 - 0.9 x10E3/uL [facility] Eosinophils Absolute 0.3 0.0 - 0.4 x10E3/uL [facility] Basophils Absolute 0.0 0.0 - 0.2 x10E3/uL [facility] Immature Granulocytes 0 Not Estab. % [facility] Immature Grans (Absolute) 0.0 0.0 - 0.1 x10E3/uL [facility] Blood Venous blood / Unknown 09/08/2024 1:11 PM EDT 09/08/2024 us Israel Fermin MD LAB BLOOD ORDERABLES Final [facility] [address] [place] [address] * ALT (09/08/2024 1:11 PM EDT) ALT (SGPT) 12 0 - 32 IU/L [facility] Blood Venous blood / Unknown 09/08/2024 1:11 PM EDT 09/08/2024 Israel Fermin MD LAB BLOOD ORDERABLES Final Result [facility] [address] [place] [address] * AST (09/08/2024 1:11 PM EDT) AST (SGOT) 18 0 - 40 IU/L [facility] Blood Venous blood / Unknown 09/08/2024 1:11 PM EDT 09/08/2024 Israel Fermin MD LAB BLOOD ORDERABLES Final Result [facility] [address] [place] [address] * (ABNORMAL) PTH, Intact (09/08/2024 1:11 PM EDT) PTH 134(H) 15 - 65 pg/mL [facility] Blood Venous blood / Unknown 09/08/2024 1:11 PM EDT 09/08/2024 Israel Fermin MD LAB BLOOD ORDERABLES Final Result Performing Organization Address City/[facility]/ZIP Co de Phone Number [facility] [address] [place] [address] * Ferritin (09/08/2024 1:11 PM EDT) Ferritin 74 15 - 150 ng/mL [facility] Blood Venous blood / Unknown 09/08/2024 1:11 PM EDT 09/08/2024 Israel Fermin MD LAB BLOOD ORDERABLES Final Result [email or web address] [address] [place] [address] * CK (09/08/2024 1:11 PM EDT) Creatine Kinase (CK/CPK) 93 32 - 182 U/L [facility] Blood Venous blood / Unknown 09/08/2024 1:11 PM EDT 09/08/2024 us Israel Fermin MD LAB BLOOD ORDERABLES Final Result [facility] [address] [place] [address] * (ABNORMAL) Renal Function Panel (09/08/2024 1:11 PM EDT) Glucose 106(H) 70 - 99 mg/dL [facility] BUN 33(H) 8 - 27 mg/dL [facility] Creatinine 1.54(H) 0.57 - 1.00 mg/dL [facility] eGFR CKD-EPI CR 2020 38(L) >59 mL/min/1.7 3 [facility] BUN/Creatinine Ratio 21 12 - 28 [facility] Sodium 137 134 - 144 mmol/L [facility] Potassium 4.6 3.5 - 5.2 mmol/L [facility] Chloride 102 96 - 106 mmol/L [facility] Bicarbonate (CO2) 20 20 - 29 mmol/L [facility] Calcium 8.7 8.7 - 10.3 mg/dL [facility] Albumin 4.2 3.9 - 4.9 g/dL [facility] Phosphorus 4.6(H) 3.0 - 4.3 mg/dL [facility] Blood Venous blood / Unknown 09/08/2024 1:11 PM EDT 09/08/2024 Israel Fermin MD LAB BLOOD ORDERABLES Final Result [facility] [address] [place] [address] from Last 3 Months Insurance [facility] [employer] Care Teams Hvac Project Manager Relationship Specialty Start Date End Date Sally Marquez [address] [phone] PCP - General 07/08/24
--- OUTSIDE RECORDS SUMMARY | 2024-10-16 08:46 | XMS_ITS | Encounter Summary ---
Author Organization [facility], Address [address] [place] [address] Phone Care Team Providers Care Candles Pourer Name Role Phone Sally Marquez Primary Care Provider [phone] Reason for Visit * Reason Comments Med Refill Encounter Details Date Type Department Care Team (Late st Contact Info) Description 10/20/2019 Refill [facility] [address] [place] [address] Donny Pink PA [address] [place] [phone] Social History Tobacco Use Types Packs/Day Years [...] Support [facility] [address] [place] [phone] Cheyenne Mane FNP-C [address] [place] [id number] documented as of this encounter Visit Diagnoses Not on filedocumented in this encounter Care Teams Candles Pourer Relationship Specialty Start Date End Date Sally Marquez [address] [address] PCP - General 07/08/24 documented as of this encounter
--- OUTSIDE RECORDS SUMMARY | 2024-10-16 08:46 | XMS_ITS | Encounter Summary ---
Author Organization [facility], Address [address] [place] [address] Phone Care Team Providers Care Cabin Man Name Role Phone Sally Marquez Primary Care Provider [phone] Reason for Visit * Reason Comments Med Refill Encounter Details Date Type Department Care Team (Late Contact Info) Description 09/16/2019 Refill [facility] [address] [place] [phone] Israel Fermin MD [address] [place] [address] [place] [address] Social History Tobacco Use Types [...] [facility] [place] [address] [place] [phone] Cheyenne Mane FNP-C [address] [place] [phone] documented as of this encounter Visit Diagnoses Not on filedocumented in this encounter Care Teams Cabin Man Relationship Specialty Start Date End Date Sally Marquez [address] [address] PCP - General 07/08/24 documented as of this encounter
--- OUTSIDE RECORDS SUMMARY | 2024-10-16 08:46 | XMS_ITS | Encounter Summary ---
Author Organization [facility] [place], Address [address] [place] [address] Phone Care Team Providers Care Flying Squad Salesperson Name Role Phone Sally Marquez Primary Care Provider Encounter Details Date Type Department Care Team (Late st Contact Info) Description 02/14/2022 Documentation Only [facility] [place], [address] [place] [address] Ernst Andre MD [address] [place] [address] Social History Tobacco Use Types Packs/Day Years [...] Support [facility] [place] [address] [place] [address] Cheyenne Mane FNP-C [address] [place] [address] documented as of this encounter Visit Diagnoses Not on filedocumented in this encounter Care Teams Flying Squad Salesperson Relationship Specialty Start Date End Date Sally Marquez [address] [place] [id number] PCP - General 07/08/24 documented as of this encounter
--- OUTSIDE RECORDS SUMMARY | 2024-10-16 08:46 | XMS_ITS | Encounter Summary ---
Author Organization [facility] [place], Address [address] [place] [address] Phone Care Team Providers Care Steam Cleaning Machine Operator Name Role Phone Sally Marquez Primary Care Provider [phone] Encounter Details Date Type Department Care Team (Late st Contact Info) Description 02/08/2022 Documentation Only [facility] [place], [address] [place] [phone] [place] [address] [place] [address] Social History Tobacco Use Types [...] Support [facility] [place] [address] [place] [phone] Cehyenne Mane FNP-C [address] [place] [address] documented as of this encounter Visit Diagnoses Not on filedocumented in this encounter Care Teams Steam Cleaning Machine Operator Relationship Specialty Start Date End Date KerrySally jaime [address] [place] [phone] PCP - General 07/08/24 documented as of this encounter
--- OUTSIDE RECORDS SUMMARY | 2024-10-16 08:46 | XMS_ITS | Encounter Summary ---
Author Organization [facility] [place], Address [address] [place] [address] Phone Care Team Providers Care Rn Labor And Delivery Name Role Phone Sally Marquez Primary Care Provider [phone] Encounter Details Date Type Department Care Team (Late st Contact Info) Description 02/14/2022 Documentation Only [facility] [place], [address] [place] [address] Ernst Andre MD [address] [place] [address] Social History Tobacco Use Types Packs/Day Years [...] Support [facility] [place] [address] [place] [address] Cheyenne Mane FNP-C [address] [place] [address] documented as of this encounter Visit Diagnoses Not on filedocumented in this encounter Care Teams Rn Labor And Delivery Relationship Specialty Start Date End Date Sally Marquez [address] [place] [address] PCP - General 07/08/24 documented as of this encounter
[2024-10-16 09:01] VITALS: BP 136/78
== END 2024-10-16 09:21 | disposition home or self-care (01) ==
LOC: HO.HMCH 08:22
PROVIDERS: PCP Internal Medicine
DX: Z00.00 Encounter for general adult medical examination without abnormal findings (principal); Z53.20 Procedure and treatment not carried out because of patient's decision for unspecified reasons; F32.9 Major depressive disorder, single episode, unspecified; F41.9 Anxiety disorder, unspecified; I10 Essential (primary) hypertension; Z94.0 Kidney transplant status; G62.9 Polyneuropathy, unspecified; M54.9 Dorsalgia, unspecified; G47.10 Hypersomnia, unspecified; Z23 Encounter for immunization

== ENCOUNTER → 2024-10-16 08:21 | Outpatient (BNVA) | payer OTHER, SELFPAY | PROVIDERS: PCP Internal Medicine | DX: Z00.00 Encounter for general adult medical examination without abnormal findings (principal); F32.9 Major depressive disorder, single episode, unspecified; G62.9 Polyneuropathy, unspecified; Q61.3 Polycystic kidney, unspecified; I10 Essential (primary) hypertension; G89.4 Chronic pain syndrome; M47.26 Other spondylosis with radiculopathy, lumbar region; F41.9 Anxiety disorder, unspecified; M54.9 Dorsalgia, unspecified; G47.10 Hypersomnia, unspecified; Z23 Encounter for immunization; Z94.0 Kidney transplant status; Z79.899 Other long term (current) drug therapy | CPT/HCPCS: 90471; 90714; 99396 ==